=== PATIENT | female | born 1960 | race Caucasian/White ===

== ENCOUNTER 2019-07-25 13:00 | Emergency (ER) | payer OTHER, SELFPAY ==
[2019-07-25 13:03] VITALS: BP 139/66; PULSE 58; RESP 20; TEMP 36.2; O2SAT 100
--- NOTE | 2019-07-25 13:05 | ED.GENADULT ---
HPI - General Adult General Chief complaint: Urogenital-Female Stated complaint: UTI SYMPTOMS Time Seen by Provider: 07/25/19 13:21 Source: patient and RN notes reviewed Mode of arrival: ambulatory Limitations: no limitations History of Present Illness HPI narrative: 58-year-old female presents with urinary complaints for 1 day. Dysuria consist of burning, frequency, and urgency. Nancy says she had nausea this am without emesis, abdominal pain, or diarrhea.? Pyridium with no relief. Denies hematuria or vaginal bleeding. Denies being , Hysterectomy.? No flank pain. Denies vomiting, and abdominal pain.? Tolerating liquids well.? Remains active. Some parts of this dictation were generated by voice recognition software and may contain typographical and/or grammatical inaccuracies. Related Data Home Medications Medication Instructions Recorded Confirmed atenolol 25 mg PO DAILY 07/25/19 07/25/19 cyclobenzaprine 10 mg PO TID PRN 07/25/19 07/25/19 lorazepam 0.5 mg PO BID PRN 07/25/19 07/25/19 losartan 100 mg PO BID 07/25/19 07/25/19 phenazopyridine [Pyridium] 100 mg PO TID PRN 07/25/19 07/25/19 Allergies Allergy/AdvReac Type Severity Reaction Status Date / Time codeine AdvReac Unknown NAUSEA Verified 07/25/19 13:11 wasp Allergy Swelling Uncoded 07/25/19 13:11 of Lip/Tongue/Throat Review of Systems Review of Systems: Narrative: CONSTITUTIONAL: Denies fever, chills, sweats. EYES: Denies visual changes, redness, discharge. ENT: Denies rhinorrhea, congestion, sore throat, otalgia. CARDIOVASCULAR: Denies chest pain, palpitations, edema. RESPIRATORY: Denies dyspnea, wheezing, cough. GASTROINTESTINAL: Denies abdominal pain, vomiting, diarrhea. Complains of nausea. GENITOURINARY: Complains of dysuria (burning, frequency, urgency). Denies hematuria, abnormal discharge. SKIN: Denies rash or itching. MUSCULOSKELETAL: Denies acute back pain, joint pain, or myalgia. NEUROLOGIC: Denies numbness or focal weakness. PSYCHIATRIC: Denies anxiety or depression. All systems reviewed & are unremarkable except as noted in HPI and below. [facility] Past Medical History Medical History (Updated 07/25/19 @ 13:40 by ARIE Zaragoza) Anxiety Arthritis Finger fracture, right Surgery to left index finger Gout Hypertension Thyroid disease Surgical History Surgical History (Updated 07/25/19 @ 13:38 by ARIE Zaragoza) History of cholecystectomy History of eye surgery 07/18/1999-retinal tear left eye History of hysterectomy Family History Family History (Updated 07/25/19 @ 13:39 by ARIE Zaragoza) Father Cancer Mother Lung disease Social History Social History (Updated 07/25/19 @ 13:40 by ARIE Zaragoza) Smoking status: Former smoker Second hand tobacco smoke exposure: No Alcohol intake: never Alcohol use details: Occasional Substance use: never Living arrangements: with family Occupation/Education: occupation Gender identity (if verbalized by the patient): Female Comments At time of signature, agree with nurse past medical, surgical, social, and family history.? There is no relevant family history pertinent to the presenting complaint. Exam Narrative: Exam Narrative: GENERAL: This is a well-nourished, well-developed patient, in no apparent distress.? Talks in full sentences and ambulates with steady gait without dyspnea. HEAD: normocephalic, atraumatic. EYES: PERRL. Sclera clear/white. Vision is grossly intact. CARDIOVASCULAR: Regular rate and rhythm without murmurs, gallops, or rubs. RESPIRATORY: Clear to auscultation. Breath sounds equal bilaterally. No wheezes, rales, or rhonchi.? GASTROINTESTINAL: Abdomen soft, no significant abdominal tenderness, nondistended. Bowel sounds are active. No hepato-splenomegaly, or palpable masses. No guarding. SKIN: warm, intact with no suspicious lesions or rash, No Purpura or Ecchymosis, good
== END 2019-07-25 13:39 | disposition home or self-care (01) ==
PROVIDERS: Emergency Provider Nurse Practitioner Family; PCP Emergency Medicine
DX: R30.0 Dysuria (principal); F41.9 Anxiety disorder, unspecified; M19.90 Unspecified osteoarthritis, unspecified site; M10.9 Gout, unspecified; I10 Essential (primary) hypertension; Z87.891 Personal history of nicotine dependence
CPT/HCPCS: 81003; 87077; 87086; 87088; 87186; 99213; G0463

== ENCOUNTER 2020-07-28 13:01 | Outpatient (CLI) | payer OTHER, SELFPAY ==
--- NOTE | ~2020-07-28 | MM_ITS ---
EXAMINATION: MM screening [facility] BI w speedy HISTORY: Screening mammogram TECHNIQUE: Craniocaudal and mediolateral oblique 3-D tomosynthesis images were obtained and synthetic 2-D images were generated. CAD analysis was submitted and interpreted. COMPARISON: 12/11/2018, 06/26/2017, 10/30/2015 BREAST PARENCHYMAL COMPOSITION: The breasts are almost entirely fatty. FINDINGS: There is no evidence of suspicious mass, calcification, or architectural distortion to sugg est malignancy in either breast. There has been no suspicious interval change. IMPRESSION: 1. No mammographic evidence of malignancy. 2. Recommend routine screening mammography in one year. BI-RADS Category 1: Negative Reviewed, dictated and finalized at location A. MENDER
--- NOTE | ~2020-07-28 | DEXA_ITS ---
Bone Density Report Name: Nancy Daugherty Age: 59 Sex: Female Ethnicity: White Date of : 1960 Indication: postmenopausal; height loss; hysterectomy; Referring Provider: VISHNU MAZARIEGOS Study: Bone densitometry was performed. Exam Date: July 28, 2020 Accession number: [id number] Bone Density: Region BMD T-score Z-score Classification AP Spine (L1, L3, L4) 1.170 1.1 2.6 Normal Femoral Neck (Left) 0.787 -0.6 0.8 Normal Total Hip (Left) 0.925 -0.1 0.9 Normal Total Hip Bilateral Avg 0.912 -0.3 0.8 Normal Femoral Neck (Right) 0.763 -0.8 0.6 Normal Total Hip (Right) 0.898 -0.4 0.7 Normal World Health Organization criteria for BMD impression classify patients as: Normal (T-score at or above -1.0), Osteopenia (T-score between -1.0 and -2.5), or Osteoporosis (T-score at or below -2.5). 10-year Fracture Risk: FRAX not reported because: All T-scores for Spine Total, Hip Total, Femoral Neck at or above -1.0 Previous Exams: Region Exam Age BMD T-score BMD Change BMD Change Date g/cm2 vs Baseline vs Previous AP Spine(L1, L3, L4) 07/28/2020 59 1.170 1.1 0.016(1.4%)# 0.064(5.8%)* 08/19/2016 55 1.106 0.5 -0.048(-4.2%)# -0.048(-4.2%)# 07/26/2013 52 1.155 0.9 Total Hip(Left) 07/28/2020 59 0.925 -0.1 -0.083(-8.2%)# 0.011(1.2%) 08/19/2016 55 0.914 -0.2 -0.094(-9.3%)# -0.094(-9.3%)# 07/26/2013 52 1.008 0.5 Total Hip(Right) 07/28/2020 59 0.898 -0.4 -0.095(-9.6%)# -0.014(-1.6%) 08/19/2016 55 0.912 -0.2 -0.081(-8.1%)# -0.081(-8.1%)# 07/26/2013 52 0.993 0.4 *Denotes significance at 95% confidence level, LSC for AP Spine = 0.022 g/cm2, LSC for Total Hip = 0.027 g/cm2 Clinical Information Provided by Patient: Has used the following medications: Vitamin D, Calcium Has the following medical conditions: Hysterectomy Patient maximum height was 64 Menopause Age: 27 Drinks caffeinated beverages Onset of menses at age 7 Number of children 2 Impression: The patient has normal bone mass. No significant bone loss was observed. Discussion: BONE DENSITY IS ABOVE THE MINIMUM DESIRABLE LEVEL AT ALL SKELETAL SITES TESTED. This patient?s bone mineral density is above the minimum desirable level (T-score -1.0 or better) at all sites measured. The patient should follow a healthful lifestyle (good nutrition with adequate calcium and vitamin D, and appropriate weight-bearing exercise). Follow-Up: Consider repeating this neptali
== END 2020-07-28 13:02 | disposition home or self-care (01) ==
LOC: ANHIMG 13:03
PROVIDERS: Family Provider Family Medicine; PCP Emergency Medicine; Visit Provider Emergency Medicine
DX: Z12.31 Encounter for screening mammogram for malignant neoplasm of breast (principal); Z78.0 Asymptomatic menopausal state
CPT/HCPCS: 77063; 77067; 77080

== ENCOUNTER 2021-09-21 13:51 | Outpatient (CLI) | payer OTHER, SELFPAY ==
--- NOTE | ~2021-09-21 | MM_ITS ---
EXAMINATION: MM screening [facility] BI w speedy HISTORY: Screening mammogram TECHNIQUE: Craniocaudal and mediolateral oblique 3-D tomosynthesis images were obtained and synthetic 2-D images were generated. CAD analysis was submitted and interpreted. COMPARISON: 07/24/2020, 12/11/2018, 06/26/2017 bilateral screening mammogram examinations BREAST PARENCHYMAL COMPOSITION: The breasts are almost entirely fatty. FINDINGS: There is no evidence of suspicious mass, calcification, or architectural distortion to sugg est malignancy in either breast. There has been no suspicious interval change. IMPRESSION: 1. No mammographic evidence of malignancy. 2. Recommend routine screening mammography in one year. BI-RADS Category 1: Negative Reviewed, dictated and finalized at location A.
== END 2021-09-21 13:52 | disposition home or self-care (01) ==
LOC: ANHIMG 13:53
PROVIDERS: PCP Emergency Medicine; Visit Provider Emergency Medicine
DX: Z12.31 Encounter for screening mammogram for malignant neoplasm of breast (principal)
CPT/HCPCS: 77063; 77067

== ENCOUNTER 2022-03-29 12:59 | Emergency (ER) | payer OTHER, SELFPAY ==
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
[2022-03-29 13:25] VITALS: BP 133/61; PULSE 63; RESP 18; TEMP 36.3; O2SAT 100
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
== END 2022-03-29 15:05 | disposition home or self-care (01) ==
PROVIDERS: Emergency Provider Emergency Medicine; PCP Emergency Medicine
DX: M25.532 Pain in left wrist (principal); F41.9 Anxiety disorder, unspecified; M19.90 Unspecified osteoarthritis, unspecified site; I10 Essential (primary) hypertension
CPT/HCPCS: 73130; 99283

== ENCOUNTER 2022-05-03 16:28 | Emergency (ER) | payer OTHER, SELFPAY ==
[2022-05-03 16:37] VITALS: BP 140/76; PULSE 75; RESP 18; TEMP 36.8; O2SAT 99
--- NOTE | 2022-05-03 16:47 | ED.URI ---
HPI - URI/Sore Throat General Chief Complaint: Upper Respiratory Infection Stated Complaint: sorethroat Time Seen by Provider: 05/03/22 16:40 Source: patient Mode of arrival: ambulatory Limitations: no limitations History of Present Illness HPI Narrative: Nancy is a 61-year-old female patient presenting to the clinic today with complaints of sore throat, chest discomfort/ burning in chest, cough and congestion. She reports no fever or chills. States that she was sick last week with nausea, vomiting, diarrhea and sore throat however that improved and woke up this morning feeling sick again. MD elicited complaint: cough, sore throat, nasal congestion and other ( Chest discomfort) Related Data Home Medications Medication Instructions Recorded Confirmed atenolol 25 mg tablet 25 mg PO DAILY 07/25/19 07/25/19 cyclobenzaprine 10 mg tablet 10 mg PO TID PRN Pain 07/25/19 07/25/19 lorazepam 0.5 mg tablet 0.5 mg PO BID PRN Anxiety 07/25/19 07/25/19 losartan 100 mg tablet 100 mg PO BID 07/25/19 07/25/19 levothyroxine 75 mcg tablet 75 mcg PO DAILY 03/29/22 Allergies Allergy/AdvReac Type Severity Reaction Status Date / Time codeine AdvReac Unknown NAUSEA Verified 05/03/22 17:10 wasp Allergy Swelling Uncoded 05/03/22 17:10 of Lip/Tongue/Throat Review of Systems Review of Systems: Pertinent positives per HPI. Patient denies any rash, headache, visual changes, dizziness, shortness of breath, palpitations, nausea, vomiting, diarrhea, constipation, abdominal pain, or any urinary issues. [facility] Past Medical History Medical History Anxiety Arthritis Finger fracture, right Surgery to left index finger Gout Hypertension Thyroid disease Surgical History Surgical History History of cholecystectomy History of eye surgery 07/18/1999-retinal tear left eye History of hysterectomy Family History Family History Father Cancer Mother Lung disease Social History Social History (Reviewed 05/03/22 @ 16:49 by TOMMY Richardson Smoking status: Former smoker Second hand tobacco smoke exposure: No Smoking end date: 06/04/11 Alcohol intake: never Alcohol use details: Occasional Substance use: never Gender identity (if verbalized by the patient): Female Comments At the time of my signature, I reviewed and agree with the nursing past medical, surgical, social, and family history. There is no relevant family history pertinent to the patient complaint. Exam Narrative: General: Well-developed, well nourished, anxious Head: Normocephalic, atraumatic Eyes: Pupils equally round and reactive to light bilaterally, EOM intact, sclera and conjunctive clear, no discharge, lids normal Ears: TMs intact and clear, ear canals clear, no drainage, grossly hearing normal. Nose: Nares patent, clear nasal discharge, no inflammation, no sinus tenderness. Mouth: Oral pharynx without lesions or masses, good dentition, MMM. Oropharynx red Neck: Supple, trachea midline, no enlargement of anterior or posterior cervical nodes, no thyroid masses or goiter palpable. Cardio: Regular rate and rhythm, s1 and s2 normal, no murmur appreciated. Resp: Lung sounds diminished in lower bases otherwise clear to auscultation bilaterally, no rhonchi, rales, wheezing or rubs Course Course Emergency Course: Portions of this record may have been created with voice recognition software. Level of Care: Express Care Visit Vital Signs Vital signs: Vital Signs Temperature 36.8 C 05/03/22 16:37 Pulse Rate 75 05/03/22 16:37 Respiratory Rate 18 05/03/22 16:37 Blood Pressure 140/76 05/03/22 16:37 Pulse Oximetry 99 05/03/22 16:37 Oxygen Delivery Room Air 05/03/22 16:37 Temperature 36.8 C 05/03/22
--- NOTE | 2022-05-03 18:04 | ECG_ITS ---
Measurements Intervals [place] Rate: 83 P: 66 [place]: 183 QRS: 7 QRSD: 94 T: 51 QT: 334 QTc: 393 Interpretive Statements SINUS RHYTHM FREQUENT ATRIAL PREMATURE COMPLEXES TYPE 3 BRUGADA PATTERN BASELINE ARTIFACT- I, III ABNORMAL ECG COMPARED TO ECG 05/03/2022 17:30:21 NO SIGNIFICANT CHANGES Electronically Signed On 05-03-2022 21:35:59 [employer]IONAL E[employer]IC LIAISON by Willy Logan D.O.
== END 2022-05-03 17:05 | disposition short-term general hospital (02) ==
PROVIDERS: Emergency Provider Nurse Practitioner Family; PCP Emergency Medicine
DX: I21.3 ST elevation (STEMI) myocardial infarction of unspecified site (principal); Z20.822 Contact with and (suspected) exposure to COVID-19; Z87.891 Personal history of nicotine dependence; M19.90 Unspecified osteoarthritis, unspecified site; M10.9 Gout, unspecified; I10 Essential (primary) hypertension; E07.9 Disorder of thyroid, unspecified; F41.9 Anxiety disorder, unspecified
CPT/HCPCS: 87081; 87426; 87804; 87880; 93005; 99215; C9803; G0463

== ENCOUNTER 2022-05-03 17:26 | Emergency (ER) | payer OTHER, SELFPAY ==
--- NOTE | ~2022-05-03 | XR_ITS ---
EXAMINATION: XR chest 1V portable Exam Date/Time: 05/03/2022 18:10 WATER TAXI DRIVER HISTORY: Cough, retrosternal chest pain, HTN Comparison: 07/07/2013. RESULT: Lines, tubes, and devices: None. Lungs and pleura: Clear. Cardiomediastinal silhouette: Stable. Other: No acute osseous or upper abdominal finding. IMPRESSION: No acute cardiopulmonary process. Reviewed, dictated and finalized at location K. R TAXI DRIVER
[2022-05-03 17:29] VITALS: BP 154/76; PULSE 84; RESP 20; O2SAT 100
--- NOTE | 2022-05-03 17:35 | ECG_ITS ---
Measurements Intervals [place] Rate: 76 P: -11 AR: 180 QRS: 52 QRSD: 93 T: 0 QT: 332 QTc: 374 Interpretive Statements SINUS RHYTHM ATRIAL PREMATURE COMPLEXES TYPE 2 BRUGADA PATTERN BASELINE ARTIFACT- I, III, AVL, AVF ABNORMAL ECG NO PREVIOUS ECG AVAILABLE FOR COMPARISON Electronically Signed On 05-03-2022 21:33:12 COST ACCOUNTANT by Willy Logan D.O.
--- NOTE | 2022-05-03 17:36 | ECG_ITS ---
Measurements Intervals [place] Rate: 82 P: 68 FL: 185 QRS: 10 QRSD: 97 T: 53 QT: 327 QTc: 383 Interpretive Statements SINUS RHYTHM FREQUENT ATRIAL PREMATURE COMPLEXES TYPE 3 BRUGADA PATTERN BASELINE ARTIFACT- I, II, III, AVR, AVL, AVF ABNORMAL ECG COMPARED TO ECG 05/03/2022 16:54:01 NO SIGNIFICANT CHANGES Electronically Signed On 05-03-2022 21:34:31 OFFSET PRESSMAN by Willy Logan D.O.
--- NOTE | 2022-05-03 17:41 | ED.CHESTPAIN ---
HPI - Chest Pain General Chief Complaint: Chest Pain Stated Complaint: CP Time Seen by Provider: 05/03/22 17:41 Source: patient, EMS and RN notes reviewed Mode of arrival: EMS Limitations: no limitations History of Present Illness HPI narrative: Patient is 61 years old white female referred to our emergency room from urgent care with possible STEMI. . Patient still me that she have sore throat and the cough and burning sensation scratchy sensation in the throat and retrosternal started yesterday morning. Gets worse with coughing. Patient reports that last week her 4 years old grandson had nausea, vomiting and diarrhea with low-grade fever lasted for couple days and patient had similar symptoms which resolved in 24 hours. History of hypertension hypothyroidism, no family history of coronary artery disease, patient denies shortness of breath. Related Data Home Medications Medication Instructions Recorded Confirmed atenolol 25 mg tablet 25 mg PO DAILY 07/25/19 05/03/22 cyclobenzaprine 10 mg tablet 10 mg PO TID PRN Pain 07/25/19 05/03/22 lorazepam 0.5 mg tablet 0.5 mg PO BID PRN Anxiety 07/25/19 05/03/22 losartan 100 mg tablet 150 mg PO BID 07/25/19 05/03/22 levothyroxine 75 mcg tablet 0.05 mcg PO DAILY 03/29/22 05/03/22 Allergies Allergy/AdvReac Type Severity Reaction Status Date / Time codeine AdvReac Unknown NAUSEA Verified 05/03/22 17:10 wasp Allergy Swelling Uncoded 05/03/22 17:10 of Lip/Tongue/Throat Review of Systems Review of Systems: All systems reviewed & are unremarkable except as noted in HPI and below PMFSH Past Medical History Medical History Anxiety Arthritis Finger fracture, right Surgery to left index finger Gout Hypertension Thyroid disease Surgical History Surgical History History of cholecystectomy History of eye surgery 07/18/1999-retinal tear left eye History of hysterectomy Family History Family History Father Cancer Mother Lung disease Social History Social History Smoking status: Former smoker Second hand tobacco smoke exposure: No Smoking end date: 06/04/11 Alcohol intake: never Alcohol use details: Occasional Substance use: never Gender identity (if verbalized by the patient): Female Exam Narrative: General appearance: Well-developed, well-nourished Skin: Normal color Head: Normocephalic, nontraumatic Eyes: Clear conjunctiva ENT: Oropharynx normal, ears normal, nose normal Neck: Supple, nontender Chest and respiratory: Airway patent, no respiratory distress, no accessory muscle use Heart: Regular rate/rhythm Abdomen: Soft, nontender, no organomegaly, quiet bowel sounds Vascular: Normal peripheral pulses, normal capillary refill. Musculoskeletal: Normal range of motion, nontender back Neurologic: Alert and oriented ?3, PROOF INSPECTOR is normal as tested, no gross motor deficit Course Consultations Consultation #1: Patient care turned over to Dr. DOTY at shift change, awaiting labs, imaging, disposition. Patient been resting quietly in the emergency room without any issues or problems. Date: 05/03/22 Time: 19:08 Vital Signs Vital signs: Vital Signs Pulse Rate 84 05/03/22 17:29 Respiratory Rate 20 05/03/22 17:29 Blood Pressure 154/76 H 05/03/22 17:29 Pulse Oximetry 100 05/03/22 17:29 Pulse Rate 84 05/03/22 17:29 Respiratory Rate 20 05/03/22 17:29 Blood Pressure 154/76 H 05/03/22 17:29 Pulse Oximetry 100 05/03/22
[2022-05-03 18:30] LABS: Basophils Absolute Auto 0.1 K/mm3 (0.0-0.1); Basophils Percent Auto 1.1 % (0.2-1.2); Eosinophils Absolute Auto 0.1 K/mm3 (0-0.3); Eosinophils Percent Auto 1.3 % (0-4.4); Hematocrit 37.2 % (37.0-47.0); Hemoglobin 12.1 g/dL (12.0-15.0); Immature Granulocyte Absolute 0.02 K/mm3 (0.00-0.031); Immature Granulocyte Percent A 0.3 % (0-0.5); Lymphocytes Absolute Auto 0.79 K/mm3 (0.9-3.2); Lymphocytes Percent Auto 12.9 % (18.3-44.2); Mean Corpuscular HGB Conc 32.5 g/dl (32-36); Mean Corpuscular Hemoglobin 31.2 pg (26-34); Mean Corpuscular Volume 95.9 fl (80-100); Mean Platelet Volume 10.4 fl (7.4-10.4); Monocytes Absolute Auto 0.5 K/mm3 (0.1-0.6); Monocytes Percent Auto 8.8 % (2.6-8.5); Neutrophils Absolute Auto 4.6 K/mm3 (1.3-6.7); Neutrophils Percent Auto 75.6 % (45.5-73.1); Platelet Count Result 252 k/mm3 (150-375); Red Blood Count 3.88 M/mm3 (4.2-5.4); Red Cell Distribution Width 12.8 % (11.5-14.5); White Blood Count 6.1 K/mm3 (4.5-10.0)
[2022-05-03 18:38] LABS: Alanine Aminotransferase 26 U/L (6-35); Albumin Level 4.5 g/dL (3.5-5.1); Alkaline Phosphatase 106 U/L (38-126); Anion Gap 8 mmol/L (8-16); Aspartate Amino Transferase 36 U/L (14-36); Bilirubin,Total 0.5 mg/dL (0.2-1.3); Blood Urea Nitrogen 16 mg/dL (7-17); Calcium 9.2 mg/dL (8.4-10.2); Carbon Dioxide 29 mmol/L (22-30); Chloride 97 mmol/L (98-107); Estimated Glomerular Filt Rate 56; Glucose 93 mg/dL (65-110); Potassium 3.6 mmol/L (3.4-5.0); Sodium 134 mmol/L (137-145)
[2022-05-03 18:42] LABS: INR 1.1; Prothrombin Time 13.3 Seconds (11.1-14.7)
[2022-05-03 18:43] LABS: Partial Thromboplastin Time 25.4 SECONDS (22.3-36.8)
[2022-05-03 18:50] LABS: Troponin I < 0.012 ng/mL (0.000-0.034)
[2022-05-03 19:11] LABS: D Dimer 0.69 ug/mL (<0.48)
[2022-05-03 19:16] LABS: Influenza A QL RT-PCR Positive (Negative); Influenza B QL RT-PCR Negative (Negative); RSV RNA, RT-PCR Negative (Negative); SARS-CoV-2 RNA PCR Negative
[2022-05-03 20:27] VITALS: BP 119/78; PULSE 79; RESP 18; O2SAT 99
== END 2022-05-03 20:51 | disposition home or self-care (01) ==
PROVIDERS: Emergency Provider Emergency Medicine; PCP Emergency Medicine
DX: J10.1 Influenza due to other identified influenza virus with other respiratory manifestations (principal); F41.9 Anxiety disorder, unspecified; M19.90 Unspecified osteoarthritis, unspecified site; I10 Essential (primary) hypertension; Z20.822 Contact with and (suspected) exposure to COVID-19
CPT/HCPCS: 36415; 71045; 80053; 84484; 85025; 85380; 85610; 85730; 87081; 87426; 87637; 87804; 87880; 93005; 99284; C9803

== ENCOUNTER 2022-06-11 12:40 | Emergency (ER) | payer OTHER, SELFPAY ==
[2022-06-11 13:30] VITALS: BP 138/70; PULSE 78; RESP 16; TEMP 36.3; O2SAT 100
--- NOTE | 2022-06-11 14:44 | ED.GENADULT ---
HPI - General Adult General Chief complaint: Urogenital-Female Stated complaint: uti Source: patient Mode of arrival: ambulatory Limitations: no limitations History of Present Illness HPI narrative: patient presents for evaluation of urinary symptoms. Symptom onset this morning. She reports urinary frequency and dysuria. She also reports some chills. No fever, nausea, vomiting, low back pain, abdominal pain, vaginal bleeding or discharge. She has had recurrent urinary tract infections and states her current symptoms are consistent with those previously experience with urinary tract infections in the past. She took a dose of Azo this morning to assist with her symptoms. No additional complaints or concerns. Related Data Home Medications Medication Instructions Recorded Confirmed atenolol 25 mg tablet 25 mg PO DAILY 07/25/19 05/03/22 cyclobenzaprine 10 mg tablet 10 mg PO TID PRN Pain 07/25/19 05/03/22 lorazepam 0.5 mg tablet 0.5 mg PO BID PRN Anxiety 07/25/19 05/03/22 losartan 100 mg tablet 150 mg PO BID 07/25/19 05/03/22 levothyroxine 75 mcg tablet 0.05 mcg PO DAILY 03/29/22 05/03/22 Allergies Allergy/AdvReac Type Severity Reaction Status Date / Time codeine AdvReac Unknown NAUSEA Verified 05/03/22 17:10 wasp Allergy Swelling Uncoded 05/03/22 17:10 of Lip/Tongue/Throat Review of Systems Review of Systems: CONSTITUTIONAL: Denies fever, chills, or sweats. EYES: Denies visual changes, redness, or discharge. ENT: Denies rhinorrhea, congestion, sore throat, or otalgia. CARDIOVASCULAR: Denies chest pain, palpitations, or edema. RESPIRATORY: Denies cough or dyspnea. GASTROINTESTINAL: Denies abdominal pain, nausea, vomiting, or diarrhea. GENITOURINARY: Reports dysuria and urinary frequency SKIN: Denies rash or itching. MUSCULOSKELETAL: Denies back pain, joint pain, or myalgia. NEUROLOGIC: Denies headache, numbness, dizziness, or weakness. PSYCHIATRIC: Denies anxiety or depression. [facility] Past Medical History Medical History Anxiety Arthritis Finger fracture, right Surgery to left index finger Gout Hypertension Thyroid disease Surgical History Surgical History History of cholecystectomy History of eye surgery 07/18/1999-retinal tear left eye History of hysterectomy Family History Family History Father Cancer Mother Lung disease Social History Social History Smoking status: Former smoker Second hand tobacco smoke exposure: No Smoking end date: 06/04/11 Alcohol intake: never Alcohol use details: Occasional Substance use: never Gender identity (if verbalized by the patient): Female Exam Narrative: GENERAL: Well-appearing, well-nourished, and in no acute distress. HEAD: Normocephalic, atraumatic. EYES: PERRLA and EOMI. ENT: Nares clear, no rhinorrhea or epistaxis. Mucous membranes moist. Oropharynx without tonsillar hypertrophy exudate or other lesions. Bilateral TMs pearly amaro nonbulging NECK: Supple. No adenopathy or masses. No carotid bruits or JVD CHEST: Clear to auscultation. No respiratory distress. No wheezes rales or rhonchi HEART: Regular rate and rhythm. No murmur heard. Normal peripheral pulses. ABDOMEN: Soft, nontender, nondistended, normal active bowel sounds. BACK: No CVA tenderness EXTREMITIES: Normal range of motion. No edema. SKIN: Warm, dry, no rash. NEURO: No focal deficits. Alert and oriented x3. PSYCH: Normal mood and affect. Course Course Emergency Course: This is a 61 yr old female here today for urinary complaints. Nitrite positive urine. There is potential interaction for bactrim with her losartan. Therefore, will avoid and start cipro. Send urine for culture. Increase hydrat
== END 2022-06-11 14:12 | disposition home or self-care (01) ==
PROVIDERS: Emergency Provider Nurse Practitioner; PCP Emergency Medicine
DX: N39.0 Urinary tract infection, site not specified (principal); I10 Essential (primary) hypertension; E07.9 Disorder of thyroid, unspecified; M10.9 Gout, unspecified; F41.9 Anxiety disorder, unspecified; Z87.891 Personal history of nicotine dependence
CPT/HCPCS: 81003; 87086; 99213; G0463

== ENCOUNTER 2022-08-03 09:16 | Emergency (ER) | payer OTHER, SELFPAY ==
[2022-08-03 09:34] VITALS: BP 140/69; PULSE 75; RESP 16; TEMP 36.6; O2SAT 100
--- NOTE | 2022-08-03 09:41 | ED.URI ---
HPI - URI/Sore Throat General Chief Complaint: Upper Respiratory Infection Stated Complaint: BODY ACHES/FEVER/SORE THROAT Time Seen by Provider: 08/03/22 09:41 Source: patient Mode of arrival: ambulatory Limitations: no limitations History of Present Illness HPI Narrative: 61-year-old female presents with complaint of sore throat, fatigue, body aches, fever, headache, started last night. Reports symptoms worse this morning. Taking tylenol to treat pain. Denies N/V/D. Denies strep exposure but states her grandchildren work with her. All systems reviewed and negative except as noted above. Related Data Home Medications Medication Instructions Recorded Confirmed atenolol 25 mg tablet 25 mg PO DAILY 07/25/19 08/03/22 cyclobenzaprine 10 mg tablet 10 mg PO TID PRN Pain 07/25/19 08/03/22 lorazepam 0.5 mg tablet 0.5 mg PO BID PRN Anxiety 07/25/19 08/03/22 losartan 100 mg tablet 150 mg PO BID 07/25/19 06/11/22 levothyroxine 75 mcg tablet 0.05 mcg PO DAILY 03/29/22 08/03/22 ergocalciferol (vitamin D2) 1,250 1,250 mcg PO DIRECTED 06/11/22 08/03/22 mcg (50,000 unit) capsule hydrochlorothiazide 25 mg tablet 25 mg PO DAILY 06/11/22 08/03/22 Allergies Allergy/AdvReac Type Severity Reaction Status Date / Time codeine AdvReac Unknown NAUSEA Verified 08/03/22 09:28 wasp Allergy Swelling Uncoded 08/03/22 09:28 of Lip/Tongue/Throat Review of Systems Review of Systems: CONSTITUTIONAL: reports fever, chills, or sweats. EYES: Denies visual changes, redness, or discharge. ENT: Denies rhinorrhea, congestion . Reports sore throat. Denies otalgia. CARDIOVASCULAR: Denies chest pain, palpitations, or edema. RESPIRATORY: Denies cough or dyspnea. GASTROINTESTINAL: Denies abdominal pain, nausea, vomiting, or diarrhea. GENITOURINARY: Denies dysuria or hematuria. SKIN: Denies rash or itching. MUSCULOSKELETAL: Denies back pain, joint pain. Reports myalgia. NEUROLOGIC: Denies headache, numbness, or weakness. PSYCHIATRIC: Denies anxiety or depression. All other systems reviewed are negative, except as documented in HPI. [facility] Past Medical History Medical History Anxiety Arthritis Finger fracture, right Surgery to left index finger Gout Hypertension Thyroid disease Surgical History Surgical History History of cholecystectomy History of eye surgery 07/18/1999-retinal tear left eye History of hysterectomy Family History Family History Father Cancer Mother Lung disease Social History Social History Smoking status: Former smoker Second hand tobacco smoke exposure: No Smoking end date: 06/04/11 Alcohol intake: never Alcohol use details: Occasional Substance use: never Living arrangements: with family Occupation/Education: occupation Gender identity (if verbalized by the patient): Female Comments At time of signature, agree with nursing past medical, surgical, social and family history. There is no relevant family history pertinent to the presenting complaint. Exam Narrative: GENERAL: This is a well-nourished, well-developed patient, in no apparent distress. HEAD: normocephalic, atraumatic. EYES: PERRL. Sclera clear/white. Vision is grossly intact. EARS: External ears normal, auditory canals clear and without drainage, TMs normal without perforation. Hearing grossly intact. NOSE: External nose normal with no obvious nasal discharge, nares without redness, no rhinorrhea. THROAT: Mucous membranes moist, mild erythema and swelling. no exudates NECK: Neck supple, non-tender without lymphadenopathy, masses or thyromegaly. CARDIOVASCULAR: Regular rate and rhythm without murmurs, gallops, or rubs. RESPIRATORY: Clear to auscultation. Lupe
== END 2022-08-03 09:55 | disposition home or self-care (01) ==
PROVIDERS: Emergency Provider Nurse Practitioner Family; PCP Emergency Medicine
DX: J02.9 Acute pharyngitis, unspecified (principal); I10 Essential (primary) hypertension; Z20.822 Contact with and (suspected) exposure to COVID-19
CPT/HCPCS: 87081; 87426; 87880; 99213; C9803; G0463

== ENCOUNTER 2022-09-12 00:28 | Day surgery (SDC) | payer OTHER, SELFPAY ==
[2022-08-28 13:03] VITALS: BMI 32.8
[2022-09-12 12:45] VITALS: BP 124/72; PULSE 80; RESP 16; TEMP 36.3; O2SAT 97
[2022-09-12] MEDS: LACTATED RINGERS 1,000 ML 150 ML IV CONT (12:52)
--- NOTE | 2022-09-12 13:01 | PM.HPGS ---
History of Present Illness History of Present Illness Consent: Risks, benefits, and alternatives have been discussed and questions answered. Patient agrees to proceed with procedure. 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 Had EGD about 10 years ago. Review of Systems Constitutional: Constitutional: Denies headache(s) and Denies weakness Eyes: Eyes: Denies blurry vision ENT: Reports Normal hearing present, Denies headache(s) and Denies neck pain Cardiovascular: Cardiovascular: Denies chest pain and Denies dyspnea Respiratory: Respiratory: Denies dyspnea Gastrointestinal: Gastrointestinal: Reports no additional gastrointestinal complaints Genitourinary: Genitourinary: Denies dysuria Musculoskeletal: Musculoskeletal: Denies neck pain Integumentary/Breasts: Skin/Breast: Denies dry skin Neurologic: Reports Normal hearing present, Denies headache(s) and Denies weakness Psychiatric: Psychiatric: Denies anxiety Endocrine: Endocrine: Denies change in body appearance Hematologic/Lymphatic: Hematologic/Lymphatic: Denies easy bleeding Allergic/Immunologic: Allergic/Immunologic: Denies urticaria PMFSH Past Medical History Medical History (Updated 09/12/22 @ 13:03 by Enrike Acevedo MD) Anxiety Arthritis Finger fracture, right Surgery to left index finger GERD (gastroesophageal reflux disease) Gout Hypertension Thyroid disease Surgical History Surgical History History of cholecystectomy History of eye surgery 07/18/1999-retinal tear left eye History of hysterectomy Family History Family History Father Cancer Mother Lung disease Social History Social History Smoking status: Former smoker Tobacco type: cigarettes Second hand tobacco smoke exposure: No Smoking end date: 06/04/11 Alcohol intake: never Alcohol use details: Occasional Substance use: never Substance use type: does not use Living arrangements: with family Occupation/Education: occupation Gender identity (if verbalized by the patient): Female Spiritual care concerns: No Meds Home Medications and Allergies Home Medications Medication Instructions Recorded Confirmed Type atenolol 25 mg tablet 25 mg PO DAILY 07/25/19 08/28/22 History cyclobenzaprine 10 mg tablet 10 mg PO TID PRN Pain 07/25/19 08/28/22 History lorazepam 0.5 mg tablet 0.5 mg PO BID PRN Anxiety 07/25/19 08/28/22 History losartan 100 mg tablet 150 mg PO BID 07/25/19 08/28/22 History levothyroxine 75 mcg tablet 75 mcg PO DAILY 03/29/22 08/28/22 History ergocalciferol (vitamin D2) 1,250 1,250 mcg PO DIRECTED 06/11/22 08/28/22 History mcg (50,000 unit) capsule hydrochlorothiazide 25 mg tablet 25 mg PO DAILY 06/11/22 08/28/22 History omeprazole 20 mg tablet,delayed 20 mg PO DAILY 08/28/22 08/28/22 History release Allergies Allergy/AdvReac Type Severity Reaction Status Date / Time venom-wasp Allergy Swelling Verified 09/12/22 12:43 of Lip/Tongue/Throat codeine AdvReac Unknown NAUSEA Verified 09/12/22 12:43 Vital Signs Vital Signs - 24 hr 09/12/22 12:45 Temperature 97.4 F L Pulse Rate 80 Respiratory Rate 16 Blood Pressure 124/72 Pulse Oximetry 97 Oxygen Delivery Room Air Exam Const: General: comfortable and no acute distress HENMT: Face/Nose/Sinus: Normal nares present Eyes: General: appearance normal, both eyes and all related structures Neck: Neck: no JVD Resp: Auscultation: clear to auscultation bilaterally Cardio: Rate: regular rate Rhythm: reg
--- NOTE | 2022-09-12 13:06 | WPDANESEPPF ---
Anes - Initial Pre Proc Eval Procedure: Operation Date: 09/12/22 14:00 Proposed Procedures p Esophagogastroduodenoscopy EGD - Enrike Acevedo MD Date/Time: 09/12/22 13:06 Surgeon: Enrike Acevedo MD Pre Op Diagnosis: GERD Patient Data Age: 61 Gender: F Height: 1.6 m Weight: 80.8 kg Last Vital Signs Temp 36.3 C L 09/12/22 12:45 Pulse 80 09/12/22 12:45 Resp 16 09/12/22 12:45 BP 124/72 09/12/22 12:45 Pulse Ox 97 09/12/22 12:45 O2 Del Method Room Air 09/12/22 12:45 Allergies Allergy/AdvReac Type Severity Reaction Status Date / Time venom-wasp Allergy Swelling Verified 09/12/22 12:43 of Lip/Tongue/Throat codeine AdvReac Unknown NAUSEA Verified 09/12/22 12:43 Home Medications Medication Instructions Recorded Confirmed Type atenolol 25 mg tablet 25 mg PO DAILY 07/25/19 09/12/22 History cyclobenzaprine 10 mg tablet 10 mg PO TID PRN Pain 07/25/19 09/12/22 History lorazepam 0.5 mg tablet 0.5 mg PO BID PRN Anxiety 07/25/19 09/12/22 History losartan 100 mg tablet 150 mg PO BID 07/25/19 09/12/22 History levothyroxine 75 mcg tablet 75 mcg PO DAILY 03/29/22 09/12/22 History ergocalciferol (vitamin D2) 1,250 1,250 mcg PO DIRECTED 06/11/22 09/12/22 History mcg (50,000 unit) capsule hydrochlorothiazide 25 mg tablet 25 mg PO DAILY 06/11/22 09/12/22 History omeprazole 20 mg tablet,delayed 20 mg PO DAILY 08/28/22 09/12/22 History release Patient hx anesthesia problems: none Family hx anesthesia problems: none Results Review: All pre-operative results and documents have been reviewed as part of the pre-operative evaluation. [facility] Past Medical History Medical History Anxiety Arthritis Finger fracture, right Surgery to left index finger GERD (gastroesophageal reflux disease) Gout Hypertension Thyroid disease Surgical History Surgical History History of cholecystectomy History of eye surgery 07/18/1999-retinal tear left eye History of hysterectomy Family History Family History Father Cancer Mother Lung disease Social History Social History Smoking status: Former smoker Tobacco type: cigarettes Second hand tobacco smoke exposure: No Smoking end date: 06/04/11 Alcohol intake: never Alcohol use details: Occasional Substance use: never Substance use type: does not use Living arrangements: with family Occupation/Education: occupation Gender identity (if verbalized by the patient): Female Spiritual care concerns: No Comments still smoking Anes - Eval Final PreProcedure Day of Procedure 09/12/22 13:06 Heart: regular rate and rhythm Airway: Mallampati scale class II and special considerations Neurological: alert and oriented Last oral intake: >/= 8 hours ASA classification: III Emergent: no Anesthetic plan: proceed Anesthesia type and monitoring: monitored anesthesia care Results Review: All pre-operative results and documents have been reviewed as part of the pre-operative evaluation. Informed Consent: The patient's anesthetic plan and its attendant risks and benefits were discussed with the patient/family/POA. Questions were solicited and answers provided to the satisfaction of the patient/family/POA.
[2022-09-12 13:26] VITALS: BP 115/68; PULSE 83; RESP 22; O2SAT 100
[2022-09-12 13:36] VITALS: BP 115/69; PULSE 74; RESP 20; O2SAT 100
[2022-09-12 13:46] VITALS: BP 128/74; PULSE 71; RESP 17; O2SAT 100
== END 2022-09-12 13:57 | disposition home or self-care (01) ==
PROVIDERS: PCP Emergency Medicine; Visit Provider Internal Medicine Gastroenterology
PROC: 0DJ08ZZ Inspection of Upper Intestinal Tract, Via Natural or Artificial Opening Endoscopic (ICD-10-PCS; CPT 43235; principal; 2022-09-12 14:00)
DX: K21.9 Gastro-esophageal reflux disease without esophagitis (principal); K22.70 Barrett's esophagus without dysplasia; K44.9 Diaphragmatic hernia without obstruction or gangrene; I10 Essential (primary) hypertension; E07.9 Disorder of thyroid, unspecified; Z87.891 Personal history of nicotine dependence
CPT/HCPCS: 43239; 88305; J2704; J7120

== ENCOUNTER 2023-12-04 15:03 | Outpatient (CLI) | payer MEDICARE, MEDICAID, SELFPAY ==
--- NOTE | ~2023-12-04 | MM_ITS ---
EXAMINATION: MM screening nadiya BI w [facility] HISTORY: Screening mammogram TECHNIQUE: Craniocaudal and mediolateral oblique 3-D tomosynthesis images were obtained and synthetic 2-D images were generated. CAD analysis was submitted and interpreted. COMPARISON: 09/21/2021, 07/28/2020, 12/11/2018 BREAST PARENCHYMAL COMPOSITION:Not Dense. The breasts are almost entirely fatty FINDINGS: No suspicious mass, calcification, or architectural distortion are identified in either jolynn ast to suggest malignancy. There has been no suspicious interval change. IMPRESSION: No mammographic evidence of malignancy. Recommend routine screening mammography in one year. BI-RADS Category 1: Negative Reviewed, dictated and finalized at location .
== END 2023-12-04 15:04 | disposition home or self-care (01) ==
PROVIDERS: PCP Emergency Medicine; Visit Provider Emergency Medicine
DX: Z12.31 Encounter for screening mammogram for malignant neoplasm of breast (principal)
CPT/HCPCS: 77063; 77067

== ENCOUNTER 2024-08-18 12:00 | Outpatient (CLI) | payer MEDICARE, MEDICAID, SELFPAY ==
--- NOTE | ~2024-08-18 | XR_ITS ---
AP and lateral views of the left hip Clinical history: Pain Findings: No acute fracture or dislocation is seen. Osseous alignment is anatomic. Left hip joint is intact. Soft tissues are unremarkable. Impression: No significant abnormality is seen. Reviewed, dictated and finalized at location M. Impression: No significant abnormality is seen.
--- OUTSIDE RECORDS SUMMARY | 2024-08-18 14:27 | XMS_ITS | Patient Health Summary ---
Author Organization [facility] Address [address] [place] [address] Care Team Providers Care Quarrying Manager Name Role Phone Yonis Pinzon MD Primary Care Provider [phone] Suleiman Mo MD Unavailable [phone] Enrike Acevedo MD Unavailable [phone] Note from [facility],non-owned Affiliates and Associated Physician Practices is amultiple site organization consisting of ambulatory clinics and hospital sitesin [place], [place], [place] and [place]. This disclosure is being madepursuant to the Care Everywhere program and may not contain all information available regarding this patient. Last updated 18.[facility] Allergies * Wasp Venom Protein(Unknown) * Wasps [Other](Shortness of Breath,Swelling) -High Criticality Medications * Be aware that medications may not be up to date on this document. Alwaysverify current medications with the patient. * Magnesium 400 MG(Started 11/16/2016) Take 400 mg by mouth. * cyclobenzaprine (FLEXERIL) 10 MG tablet Take 1 (one) tablet by mouth * MULTIPLE VITAMINS-MINERALS PO * omeprazole (PRILOSEC OTC) capsule Take 2 (two) capsules by mouth daily before breakfast * LORazepam (ATIVAN) 0.5 MG tablet(Started 09/25/2017) Take 1 (one) tablet by mouth as needed * Calcium Carbonate-Vit D-Min (CALCIUM 1200 PO) Take 2 tablets by mouth once daily * estradiol (Estrace) 0.1 MG/GM vaginal cream(Started 03/20/2022) APPLY GRAPE SIZED AMOUNT TO INTROITUS/URETHRAL MEATUS 3 TIMES PER WEEK * losartan (Cozaar) 100 MG tablet(Started 11/28/2023) TAKE 1 TABLET BY MOUTH IN THE MORNING AND HALF A TABLET IN THE EVENING 3 refills by 11/27/2024 * levothyroxine (Synthroid) 88 MCG tablet Take 1 (one) tablet by mouth daily before breakfast * atenolol (Tenormin) 25 MG tablet(Started 05/15/2024) Take 1.5 (one and one-half) tablets by mouth once daily 3 refills by 05/15/2025 Active Problems Problem Noted Date Diagnosed Date Nonspecific abnormal electrocardiogram (ECG) (EK G) 06/09/2022 Lower leg edema 08/05/2021 Hypothyroidism, acquired 05/12/2021 Flow murmur 06/11/2020 Essential hypertension 10/12/2017 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 Flushing 05/10/2015 Thyrotoxicosis with diffuse 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 thyroid storm 11/18/2014 Nonscarring hair loss 11/18/2014 Deficiency of other specified B group vitamins 0 11/18/2014 Vitamin D deficiency 11/18/2014 Gastro-esophageal reflux disease without esophag itis 11/18/2014 Gastroesophageal reflux disease without esophagi tis 11/18/2014 Graves disease 11/18/2014 Hypovitaminosis D 11/18/2014 Immunizations * INFLUENZA VACCINE(Given 03/04/2018) Social History Tobacco Use Types Packs/Day Years Used Date Smoking Tobacco: Former Cigarettes Q uit: 11/15/2013 Smokeless Tobacco: Never Tobacco Cessation:Counseling Given: Not Answered Alcohol Use Standard Drinks/Week Comments No 0 (1 standard drink = 0.6 oz pur e alcohol) Sex and Gender Information Value Date Recorded Sex Assigned at Female 06/07/2022 12:30 PM MACHINE FITTER Gender Identity Female 06/07/2022 12:30 PM MACHINE FITTER Sexual Orientation Straight 06/07/2022 12 :30 PM MACHINE FITTER Last Filed Vital Signs Vital Sign Reading Time Taken Comments Blood Pressure 119/70 02/27/2024 11:38 AM CDT Pulse 56 02/27/2024 11:38 AM CDT Temperature 36.8 C (98.2 F) 06/09/2022 1:36 PM MACHINE FITTER Respiratory Rate 12 11/16/2016 12:42 PM CDT Oxygen Saturation 97% 02/27/2024 11:38 AM CDT Inhaled Oxygen Concentration - - Weight 76.2 kg (168 lb) 02/27/2024 11:38 AM CDT Height 160 cm (5' 3 ) 02/27/2024 11:38 AM CDT Body Mass Index 29.76 02/27/2024 11:38 AM CDT Procedures * EKG 12-LEAD(Performed 02/27/2024) Performed for Essential hypertension * PROC EKG IN CLINIC(Performed 06/09/2022) Performed for Gastroesophageal reflux disease without esophagitis, Flow murmur, Graves disease, Lower leg edema, Flushing, Essential hypertension, Thyrotoxicosis with diffuse 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 thyroid storm, Nonspecific abnormal electrocardiogram (ECG) (EKG) * TSH(Performed 06/06/2022) * T4 FREE(Performed 06/06/2022) * THYROID STIMULATING IMMUNOGLOBULIN (TSI)(Performed 06/06/2022) * THYROID STIMULATING IMMUNOGLOBULIN (TSI)(Performed 05/13/2021) Performed for Graves disease * T4 FREE(Performed 05/13/2021) Performed for Graves disease * TSH(Performed 05/13/2021) Performed for Graves disease * TSH(Performed 03/05/2020) * T4 FREE(Performed 03/05/2020) * T3 TOTAL(Performed 03/05/2020) * T3 TOTAL(Performed 01/30/2020) Performed for Graves disease * T4 FREE(Performed 01/30/2020) Performed for Graves disease * TSH(Performed 01/30/2020) Performed for Graves disease * PROC EKG IN CLINIC(Performed 11/28/2019) Performed for Essential hypertension * LAB RESULTS ORDER(Performed 07/30/2019) * MI PROPHYLAXIS RETINA DETACH PHOTOCOAG LT(Performed 07/18/2019) Performed for Retinal hole of left eye * OPH OCT TEST [facility](Performed 07/18/2019) Performed for Vitreous floaters of left eye * EYE EXAM(Performed 07/15/2019) * TSH(Performed 07/01/2019) * T4 FREE(Performed 07/01/2019) * T3 TOTAL(Performed 07/01/2019) * LAB RESULTS ORDER(Performed 03/24/2019) * T3 TOTAL(Performed 03/21/2019) Performed for Graves disease * T4 FREE(Performed 03/21/2019) Performed for Graves disease * TSH(Performed 03/21/2019) Performed for Graves disease * LAB RESULTS ORDER(Performed 10/31/2018) * TSH (EXTERNAL RESULT ENTRY)(Performed 10/18/2018) Performed for Graves disease * CREATININE BLOOD (EXTERNAL RESULT ENTRY)(Performed 10/18/2018) Performed for Thyrotoxicosis with diffuse 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 thyroid storm * BASIC METABOLIC PANEL (CALCIUM TOTAL)(Performed 11/13/2017) * BASIC METABOLIC PANEL (CALCIUM TOTAL)(Performed 11/13/2017) * VITAMIN D 25-HYDROXY(Performed 11/13/2017) * TSH(Performed 11/13/2017) * T4 FREE(Performed 11/13/2017) * VITAMIN D 25-HYDROXY(Performed 08/11/2017) * BASIC METABOLIC PANEL (CALCIUM TOTAL)(Performed 08/11/2017) * TSH(Performed 08/11/2017) * T4 FREE(Performed 08/11/2017) * EKG 12-LEAD(Performed 08/03/2017) * T4 FREE(Performed 05/05/2017) * TSH(Performed 05/05/2017) * TSH(Performed 04/07/2017) * T4 FREE(Performed 04/07/2017) * TSH(Performed 03/10/2017) * T4 FREE(Performed 03/10/2017) * TSH(Performed 02/10/2017) * T4 FREE(Performed 02/10/2017) * TSH(Performed 01/13/2017) * T4 FREE(Performed 01/13/2017) * VITAMIN D 25-HYDROXY(Performed 12/16/2016) * TSH(Performed 12/16/2016) * T4 FREE(Performed 12/16/2016) * TSH(Performed 10/24/2016) * T4 FREE(Performed 10/24/2016) * T4 FREE(Performed 09/23/2016) * TSH(Performed 09/23/2016) * T4 FREE DIRECT DIALYSIS(Performed 08/19/2016) * TSH(Performed 08/19/2016) * THYROID STIMULATING IMMUNOGLOBULIN (TSI)(Performed 07/22/2016) * T3 TOTAL(Performed 07/22/2016) * TSH(Performed 07/22/2016) * T4 FREE(Performed 07/22/2016) * T4 FREE DIRECT DIALYSIS(Performed 07/06/2016) * TSH(Performed 07/06/2016) * T4 FREE DIRECT DIALYSIS(Performed 05/06/2016) * TSH(Performed 05/06/2016) * T4 FREE(Performed 03/04/2016) * TSH(Performed 03/04/2016) * VITAMIN D 25-HYDROXY D2+D3(Performed 10/30/2015) * VITAMIN B12 FOLATE PANEL(Performed 10/30/2015) * TSH(Performed 10/30/2015) * T4 FREE(Performed 10/30/2015) * URINALYSIS W/MICROSCOPIC REFLEX TO CULTURE(Performed 10/30/2015) * CBC W/O DIFFERENTIAL(Performed 10/30/2015) * COMPREHENSIVE METABOLIC PANEL(Performed 10/30/2015) * LIPID PROFILE W LDL/HDL RATIO(Performed 10/30/2015) * CULTURE URINE(Performed 10/30/2015) * CULTURE URINE REFLEXED(Performed 10/30/2015) * T4 FREE(Performed 04/17/2015) * TSH(Performed 04/17/2015) * THYROID STIMULATING IMMUNOGLOBULIN (TSI)(Performed 04/17/2015) * DERMATOPATHOLOGY(Performed 02/04/2015) * VITAMIN B12(Performed 11/23/2014) * VITAMIN D 25-HYDROXY D2+D3(Performed 11/23/2014) * CBC W AUTO DIFFERENTIAL(Performed 11/23/2014) * T4 FREE(Performed 11/23/2014) * TSH(Performed 11/23/2014) * TSH(Performed 06/04/1998) * T3 FREE DIALYSIS LC/MS(Performed 06/04/1998) * T4 FREE DIRECT DIALYSIS(Performed 06/04/1998) Results * EKG 12-LEAD (02/27/2024 11:44 AM CDT) Only the most recent of2 resultswithin the time period is included. Ventricular Rate 58 BPM [facility] CARE MUSE Atrial Rate 58 BPM [facility] M[facility] P-R Interval 210 ms [facility] MUSE QRS Duration ms 94 ms [facility] ARE MUSE Q-T Interval ms 410 ms [facility] ARE MUSE QTC Calculation (Bezet) 402 ms [facility] MUSE Calculated P [place] 74 degrees [facility] MUSE Calculated R [place] 7 degrees [facility] MUSE Calculated T [place] 48 degrees SL [facility] MUSE Interpretation EKG SINUS BRADYCARDIA WITH 1ST DEGREE A-V BLOCK OTHERWISE NORMAL ECG NO PREVIOUS ECGS AVAILABLE Confirmed by fellow HARDIK NIETO MD ([id number]) on 03/07/2024 7:19:14 AM Confirmed by QUINN REHMAN MD ([id number]) on 03/07/2024 7:46:11 PM MADHUTOYATANIA QUICK 02/27/2024 11:4 4 AM CDT 03/07/2024 7:46 PM CDT Sherrie Roberto FLOATING LABOR GANG SUPERVISOR-INDUSTRIAL MAINTENANCE TECHNICIAN ECG ORDERABLES ANIL QUICK * PROC EKG IN CLINIC (06/09/2022 3:14 PM MACHINE FITTER) Only the most recent of2 resultswithin the time period is included. Narrative Sumanth Duong MD - 06/09/2022 3:14 PM MACHINE FITTER Sumanth Duong MD 06/09/2022 3:14 PM Sumanth Duong MD ECG ORDERABLES * THYROID STIMULATING IMMUNOGLOBULIN (TSI) (06/06/2022 2:30 PM MACHINE FITTER) Only the most recent of4 resultswithin the time period is included. Thyroid Stimulating Immunoglobulin <89 <140 % baseline [facility] Comment: Thyroid stimulating immunoglobulins (TSI) can engage the TSH receptors resulting in hyperthyroidism in Graves' disease patients. TSI levels can be useful in monitoring the clinical outcome of Graves' disease as well as assessing the potential for hyperthyroidism from maternal- transfer. TSI results greater than or equal to (>=) 140% of the Reference Control are considered positive. NOTE: A serum TSH level greater than 350 micro-International Units/mL can interfere with the TSI bioassay and potentially give false positive results. Patients who are and are suspected of having hyperthyroidism should have both TSI and human Chorionic Gonadotropin (hCG) tests measured. A serum hCG level greater than 40,625 mIU/mL can interfere with the TSI bioassay and may give false negative results. In these patients it is recommended that a second TSI be obtained when the hCG concentration falls below 40,625 mIU/mL (usually after approximately 20-weeks gestation). The analytical performance characteristics of this assay have been determined by [facility]. The modifications have not been cleared or approved by the FDA. This assay has been validated pursuant to the CLIA regulations and is used for clinical purposes. Test Performed at: [employer] [facility] [address] [place] [address] GREG GARVEY MD,PHD,FORTINO 06/06/2022 2:30 PM MACHINE FITTER 06/06/2022 2:31 PM MACHINE FITTER Suleiman Mo MD LAB - CHEMISTRY CHUCKY SKELTON Performing Organization Address City/[facility]/ZIP Co de Phone Number [facility] [id number] [place] [address] * TSH (06/06/2022 2:30 PM MACHINE FITTER) Only the most recent of25 resultswithin the time period is included. TSH 3.50 0.40 - 4.50 mIU/L [facility] Comment: Test Performed at: [place] [address] HARDIK WALKER DO,MPH 06/06/2022 2:30 PM MACHINE FITTER 06/06/2022 2:31 PM MACHINE FITTER Suleiman Mo MD LAB - CHEMISTRY [place] Performing Organization Address [facility] Co de Phone Number [facility] [phone] [place], [place] [id number] * T4 FREE (06/06/2022 2:30 PM MACHINE FITTER) Only the most recent of21 resultswithin the time period is included. T4 Free 1.3 0.8 - 1.8 ng/dL [facility] Comment: Test Performed at: [place] [address] HARDIK WALKER DO,MPH 06/06/2022 2:30 PM MACHINE FITTER 06/06/2022 2:31 PM MACHINE FITTER Suleiman Mo MD LAB - CHEMISTRY [place]Y [place] Performing Organization Address City/[facility] Co de Phone Number [facility] [phone] [place] [address] * T3 TOTAL (03/05/2020 12:34 PM CDT) Only the most recent of5 resultswithin the time period is included. T3 Total 100 76 - 181 ng/dL [facility] Comment: Test Performed at: [facility] [facility] [address] [place] [address] HARDIK WALKER DO,MPH 03/05/2020 12:3 4 PM CDT 03/05/2020 12:35 PM CDT Carlos Yee MD LAB - CHEMISTR Y ORDERABLES [facility] [address] [place] [address] * LAB RESULTS ORDER (07/30/2019 12:41 PM MACHINE FITTER) Only the most recent of3 resultswithin the time period is included. Narrative 07/30/2019 12:41 PM MACHINE FITTER Ordered by an unspecified provider. Scanned Document LAB - THERAPEUTIC DR SERRATO MONITORING ORDERABLES * MI PROPHYLAXIS RETINA DETACH PHOTOCOAG LT (07/18/2019 4:20 PM MACHINE FITTER) Narrative Moses Leach MD - 07/18/2019 4:20 PM MACHINE FITTER Moses Leach MD 07/19/2019 1:39 PM Retinal Laser Note Procedure: retinal detachment prophylaxis laser in left eyes Diagnosis: retinal hole of left eye Anesthesia: Proparacaine Type of laser: Slit Lamp OS Number of spots: 142 Spot size: 280um Power: 470mw Duration: 0.15s The patient tolerated the procedure well with no complications and was instructed to follow-up as directed, sooner for any concerning visual signs or symptoms. Yeni Abbasi MD Ophthalmology Resident PGY2 4:21 PM Moses Leach MD Yeni Abbasi MD PROCEDURE/MINOR SURG ICAL ORDERABLES * OCT (07/18/2019 9:14 AM MACHINE FITTER) Anatomical Region Laterality Modality Other 07/18/2019 9:14 AM MACHINE FITTER Yeni Abbasi MD OPHTHALMOLOGY SERVIC ES ORDERABLES * EYE EXAM (07/15/2019 2:41 PM MACHINE FITTER) Anatomical Region Laterality Modality Other Narrative 07/15/2019 2:41 PM MACHINE FITTER Ordered by an unspecified provider. Scanned Document SCANNING ONLY * TSH (EXTERNAL RESULT ENTRY) (10/18/2018) TSH (EXTERNAL RESULT) 6.29 uIU/mL OUTSIDE REFERENCE LAB T4 Free 1.0 0.7 - 1.5 ng/dL [facility]IDE REFERENCE LAB Vitamin D, 25 Hydroxy 23 ng/mL [facility] LAB Cholesterol 192 200 mg/dL [facility] HDL 78 40 mg/dL [facility] LDL 97 OUTSIDE REFERENCE LAB Triglycerides 77 149 mg/dL OUTSID E REFERENCE LAB Blood BLOOD SPECIMEN / Unknown 10/18/2018 Suleiman Mo MD LAB - CHEMISTRY [place] OUTSIDE REFERENCE LAB * CREATININE BLOOD (EXTERNAL RESULT ENTRY) (10/18/2018) Creatinine (EXTERNAL RESULT) 0.82 mg/dl OUTSIDE REFERENCE LAB Cholesterol (EXTERNAL RESULT) 192 mg/dl OUTSIDE REFERENCE LAB HDL 78 40 mg/dL [facility] LAB Triglycerides 77 149 mg/dL OUTSID E REFERENCE LAB LDL 97 OUTSIDE REFERENCE LAB TSH 6.29 OUTSIDE REFERENCE LAB T4 Free 1.00 0.70 - 1.50 ng/dl OUTSIDE REFERENCE LAB Vitamin B12 454 OUTSIDE REFERENCE LAB Vitamin D, 25 Hydroxy 23 ng/mL OUTSIDE REFERENCE LAB Blood BLOOD SPECIMEN / Unknown 10/18/2018 Suleiman Mo MD LAB - CHEMISTRY [place] OUTSIDE REFERENCE LAB * (ABNORMAL) BASIC METABOLIC PANEL (CALCIUM TOTAL) (11/13/2017 8:10 AM CDT) Only the most recent of3 resultswithin the time period is included. Glucose 100(H) 65 - 99 mg/dL [facility] Comment: Fasting reference interval For someone without known diabetes, a glucose value between 100 and 125 mg/dL is consistent with prediabetes and should be confirmed with a follow-up test. BUN 10 7 - 25 mg/dL [facility] Creatinine 0.74 0.50 - 1.05 mg/dL [facility] Comment: For patients >49 years of age, the reference limit for Creatinine is approximately 13% higher for people identified as -Afghan. eGFR by MDRD 89 > OR = 60 mL/min/1 .73m2 [facility] eGFR by MDRD 103 > OR = 60 mL/min/1 .73m2 [facility] BUN/Creatinine Ratio NOT APPLICABLE 6 - 22 (calc) [facility] Sodium 141 135 - 146 mmol/L [facility] Potassium 4.6 3.5 - 5.3 mmol/L [facility] Chloride 105 98 - 110 mmol/L [facility] CO2 29 20 - 31 mmol/L [facility] Calcium 9.6 8.6 - 10.4 mg/dL [facility] Comment: Test Performed at: [facility] [id number] [address] HARDIK WALKER DO,MPH 11/13/2017 8:10 AM CDT 11/13/2017 8:11 AM CDT Sumanth Duong MD LAB - CHEMISTRY [place] SK[place] [facility] Organization Address City/State/ZIP Co de Phone Number [facility] [address] [place] [address] * VITAMIN D 25-HYDROXY (11/13/2017 8:08 AM CDT) Only the most recent of3 resultswithin the time period is included. Vitamin D, 25 Hydroxy 40 30 - 100 ng/mL [facility] Comment: Vitamin D Status 25-OH Vitamin D: Deficiency: <20 ng/mL Insufficiency: 20 - 29 ng/mL Optimal: > or = 30 ng/mL For 25-OH Vitamin D testing on patients on D2-supplementation and patients for whom quantitation of D2 and D3 fractions is required, the QuestAssureD(TM) 25-OH VIT D, (D2,D3), LC/MS/MS is recommended: order code 18753 (patients >2yrs). For more information on this test, go to: http://education.[employer].ADCentricity/faq/CUS211 (This link is being provided for informational/educational purposes only.) REPORT COMMENT: FASTING:NO Test Performed at: [facility] [address] [place] [address] HARDIK WALKER DO,MPH 11/13/2017 8:08 AM CDT 11/13/2017 8:09 AM CDT Suleiman Mo MD LAB - CHEMISTRY PRIMODesiree SKELTON Performing Organization Address City/[facility]/ZIP Co de Phone Number [facility] [address] [place] [address] * T4 FREE DIRECT DIALYSIS (08/19/2016 7:26 AM CDT) Only the most recent of4 resultswithin the time period is included. T4 Free Direct Dialysis 1.4 0.8 - 2.7 ng/dL [facility] ([facility]) Comment: Reference Ranges for T4, Free, Direct Dialysis: First Trimester: 0.9-2.0 ng/dL Second Trimester: 0.8-1.5 ng/dL Third Trimester: 0.8-1.7 ng/dL This test was developed and its analytical performance characteristics have been determined by [facility]. It has not been cleared or approved by FDA. This assay has been validated pursuant to the CLIA regulations and is used for clinical purposes. Test Performed at: [employer]/[facility] [address] [place] [address] KENZIE BAUTISTA MD PHD Blood specimen (specimen) BLOOD SPECIMEN / Unknown 08/19/2016 7:26 AM CDT 08/19/2016 7:27 AM CDT Suleiman Mo MD LAB - CHEMISTRY CHUCKY [place] Performing Organization Address [facility] de Phone Number [facility] ([facility]) * (ABNORMAL) VITAMIN D 25-HYDROXY D2+D3 BY TANDEM MASS (10/30/2015 9:06 AM CDT) Only the most recent of2 resultswithin the time period is included. Vitamin D, 25 Hydroxy Total 22(L) 30 - 100 ng/mL [facility] ([facility]) Comment: Vitamin D Status 25-OH Vitamin D: Deficiency: <20 ng/mL Insufficiency: 20 - 29 ng/mL Optimal: > or = 30 ng/mL For 25-OH Vitamin D testing on patients on D2-supplementation and patients for whom quantitation of D2 and D3 fractions is required, the QuestAssureD(TM) 25-OH VIT D, (D2,D3), LC/MS/MS is recommended: order code 74654 (patients >2yrs). For more information on this test, go to: http://education.Mediaspectrum/faq/TTW691 (This link is being provided for informational/educational purposes only.) Test Performed at: [employer] [facility] [address] HARDIK WALKER DO,MPH 10/30/2015 9:06 AM CDT 10/30/2015 9:07 AM CDT Yonis Pinzon MD LAB - CHEMISTRY ORDE RABLES Performing Organization Address [facility]/ZIP Co de Phone Number [facility] ([facility]) * CULTURE URINE REFLEXED (10/30/2015 9:06 AM CDT) Pathologist [facility] Culture Urine Comprehensive CULTURE INDICATED - RESULTS TO FOLLOW [facility] ([facility]) Comment: Test Performed at: [employer] [facility] [place] [address] HARDIK WALKER DO,MPH 10/30/2015 9:06 AM CDT 10/30/2015 9:07 AM CDT Yonis Pinzon MD LAB - MICROBIOLOGY O RDERABLES Performing Organization Address [facility]/ZIP Co de Phone Number [facility] ([facility]) * LIPID PROFILE W LDL/HDL RATIO (10/30/2015 9:06 AM CDT) Cholesterol Total 168 125 - 200 mg/dL [facility] ([facility]) Comment: Test Performed at: [employer] [facility] [place] [place] [address] HARDIK WALKER DO,MPH HDL 65 > OR = 46 mg/dL [facility] ([facility]) Triglycerides 72 <150 mg/dL [facility] ([facility]) LDL Calculated 89 <130 mg/dL (calc) [facility] ([facility]) Comment: Desirable range <100 mg/dL for patients with CHD or diabetes and <70 mg/dL for diabetic patients with known heart disease. Chol/HDL Ratio 2.6 < OR = 5.0 (calc) [facility] ([facility]) LDl/HDL Ratio 1.4 (calc) [facility] ([facility]) Comment: Below average Risk: <2.34 Average Risk: 2.35-4.12 Moderate Risk: 4.13-5.56 High Risk: >5.57 Non HDL Cholesterol 103 mg/dL (calc) [facility] ([facility]) Comment: Target for non-HDL cholesterol is 30 mg/dL higher than LDL cholesterol target. 10/30/2015 9:06 AM CDT 10/30/2015 9:07 AM CDT Yonis Pinzon MD LAB - CHEMISTRY ORDE RABLES [facility] ([facility]) * (ABNORMAL) URINALYSIS W/MICROSCOPIC REFLEX TO CULTURE (10/30/2015 9:06 AM CDT) Color UA YELLOW YELLOW [facility] ([facility]) Appearance CLEAR CLEAR [facility] ([facility]) Specific [place] UA 1.011 1.001 - 1.035 [facility] ([facility]) pH Urine 7.0 5.0 - 8.0 [facility] ([facility]) Glucose UA NEGATIVE NEGATIVE [facility] ([facility]) Bilirubin UA NEGATIVE NEGATIVE [facility] ([facility]) Ketone UA NEGATIVE NEGATIVE [facility] ([facility]) Occult Blood NEGATIVE NEGATIVE [facility] ([facility]) Protein UA NEGATIVE NEGATIVE [facility] ([facility]) Nitrite UA NEGATIVE NEGATIVE [facility] ([facility]) Leukocyte Esterase TRACE(A) NEGATIVE [facility] ([facility]) WBC Urine NONE SEEN < OR = 5 /HPF [facility] ([facility]) RBC Urine NONE SEEN < OR = 2 /HPF [facility] ([facility]) Squamous Epithelial Cells UA 0-5 < OR = 5 /HPF [facility] ([facility]) Bacteria UA NONE SEEN NONE SEEN /HPF [facility] (H) Hyaline Casts UA NONE SEEN NONE SEEN /LPF [facility] ([facility]) Comment: Test Performed at: [facility] [address] [place] [address] HARDIK WALKER DO,MPH 10/30/2015 9:06 AM CDT 10/30/2015 9:07 AM CDT Yonis Pinzon MD LAB - URINALYSIS ORD ERABLES Performing Organization Address [facility]/State/ZIP Co de Phone Number [facility] ([facility]) * CULTURE URINE (10/30/2015 9:06 AM CDT) Pathologist [facility] Urine Culture Routine SEE NOTE [facility] ([facility]) Comment: CULTURE, URINE, ROUTINE MICRO NUMBER: [id number] TEST STATUS: FINAL SPECIMEN SOURCE: URINE SPECIMEN QUALITY: ADEQUATE RESULT: Mixed non-uropathogenic Gram positive arturo. Three or more organisms present, each greater than 10,000 cu/mL. May represent normal arturo contamination from external genitalia. No further testing is required. REPORT COMMENT: FASTING:YES Test Performed at: [facility] [address] [facility] [place] [address] HARDIK WALKER DO,MPH 10/30/2015 9:06 AM CDT 10/30/2015 9:07 AM CDT Yonis Pinzon MD LAB - MICROBIOLOGY O RDILEANA [facility] ([facility]) * CBC W/O DIFFERENTIAL (10/30/2015 9:06 AM CDT) Pathologist [facility] WBC 4.7 3.8 - 10.8 Thousand/u L [facility] ([facility]) RBC 4.52 3.80 - 5.10 Million/uL [facility] ([facility]) Hemoglobin 13.7 11.7 - 15.5 g/dL [facility] ([facility]) Hematocrit 42.1 35.0 - 45.0 % [facility] ([facility]) MCV 93.1 80.0 - 100.0 fL [facility] ([facility]) MCH 30.4 27.0 - 33.0 pg [facility] ([facility]) MCHC 32.6 32.0 - 36.0 g/dL [facility] ([facility]) RDW-CV 14.2 11.0 - 15.0 % [facility] ([facility]) Platelet 243 140 - 400 Thousand/u L [facility] ([facility]) MPV 10.1 7.5 - 11.5 fL [facility] ([facility]) Comment: Test Performed at: [facility] [address] [facility] [place] [place] [address] HARDIK WALKER DO,MPH 10/30/2015 9:06 AM CDT 10/30/2015 9:07 AM CDT Yonis Pinzon MD LAB - HEMATOLOGY ORD VALERIABLES Performing Organization Address [facility] Co de Phone Number [facility] ([facility]) * COMPREHENSIVE METABOLIC PANEL (10/30/2015 9:06 AM CDT) Pathologist [facility] Glucose 93 65 - 99 mg/dL [facility] Comment: Fasting reference interval BUN 9 7 - 25 mg/dL [facility] Creatinine 0.75 0.50 - 1.05 mg/dL [facility] Comment: For patients >49 years of age, the reference limit for Creatinine is approximately 13% higher for people identified as -Afghan. eGFR non- 88 > OR = 60 mL/min/1 .73m2 [facility] eGFR 103 > OR = 60 mL/min/1 .73m2 [facility] BUN/Creatinine Ratio NOT APPLICABLE 6 - 22 (calc) [facility] Sodium 142 135 - 146 mmol/L [facility] Potassium 4.2 3.5 - 5.3 mmol/L [facility] Chloride 107 98 - 110 mmol/L [facility] CO2 27 19 - 30 mmol/L [facility] Calcium 9.8 8.6 - 10.4 mg/dL [facility] Protein Total 6.7 6.1 - 8.1 g/dL [facility] Albumin 4.2 3.6 - 5.1 g/dL [facility] Globulin 2.5 1.9 - 3.7 g/dL (calc) [facility] Albumin/Globulin Ratio 1.7 1.0 - 2.5 (calc) [facility] Bilirubin Total 0.9 0.2 - 1.2 mg/dL [facility] Alkaline Phosphatase 74 33 - 130 U/L [facility] AST 21 10 - 35 U/L [facility] ALT 19 6 - 29 U/L [facility] Comment: Test Performed at: [facility] [address] [address] HARDIK WALKER DO,MPH 10/30/2015 9:06 AM CDT 10/30/2015 9:07 AM CDT Yonis Pinzon MD LAB - CHEMISTRY [place] Performing Organization Address [facility] Co de Phone Number [facility] * VITAMIN B12 FOLATE PANEL (10/30/2015 9:06 AM CDT) Vitamin B12 539 200 - 1,100 pg/mL [facility] Folate >24.0 ng/mL [facility] Comment: Reference Range Low: <3.4 Borderline: 3.4-5.4 Normal: >5.4 Test Performed at: [facility] [id number] [place] [address] HARDIK WALKER DO,MPH 10/30/2015 9:06 AM CDT 10/30/2015 9:07 AM CDT Yonis Pinzon MD LAB - CHEMISTRY [place] Performing Organization Address [facility] Co de Phone Number [facility] * PATHOLOGY TISSUE FOR DERMATOLOGY (02/04/2015 12:00 AM CDT) Result CASE: [id number] PATIENT: NANCY PROCTOR PATHOLOGIC DIAGNOSIS: Left frontal scalp: 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 GROSS DESCRIPTION: Received is one formalin filled container labeled with the patients name and designated left frontal scalp. The specimen consists of a punch biopsy measuring [id number]. Jar 0. MICROSCOPIC DESCRIPTION: There is a shift from anagen to non anagen hairs. There is an overall decrease in follicular size as well as an increased number of vellus hairs. There is relative hypertrophy of sebaceous glands. In addition, there is a dense lichenoid lymphohistiocyt ic infiltrate surrounding the infundibulum and the isthmus of the follicles. There are scattered dyskeratotic cells. Electronically signed out by Kelley Philip M.D. 02/11/2015 1:24:21PM [facility] Comment: Performed at: Dermatopathology Laboratory [facility] - Department of Dermatology [address] [place] [address], 5th [place] [address] Phone number: [phone] FAX: [phone] Skin (tissue) specimen (specimen) 02/04/2015 02/05/2015 Narrative [facility] - 02/11/2015 1:24 PM CDT Specimen A: Type->Punch Site->L frontal scalp History->54 y/o female with diffuse central hair thinning and mild perifollicular erythema in frontal hairline Impression->Androgenetic alopecia vs. LPP vs. other Check Margins:->No Prior Biopsy->No Toby Bailon MD LAB - PATHOLOGY/CYTO LOGY ORDERABLES Performing Organization Address City/[facility]/ZIP Co de Phone Number [facility] [address] [place] [address]. 5th Floor Lab [address] [phone] * VITAMIN B12 (11/23/2014 3:19 PM CDT) Pathologist [facility] Vitamin B12 478 200 - 1,100 pg/mL [facility] Comment: REPORT COMMENT: FASTING:NO Test Performed at: [facility] [address] [place] [address] HARDIK WALKER DO,MPH Blood specimen (specimen) BLOOD SPECIMEN / Unknown 11/23/2014 3:19 PM CDT 11/23/2014 3:20 PM CDT Suleiman Mo MD LAB - CHEMISTRY [place] Performing Organization Address [facility]/ZIP Co de Phone Number [facility] * CBC W AUTO DIFFERENTIAL (11/23/2014 3:16 PM CDT) Pathologist [facility] WBC 6.5 3.8 - 10.8 Thousand/u L [facility] RBC 4.24 3.80 - 5.10 Million/uL [facility] Hemoglobin 13.3 11.7 - 15.5 g/dL [facility] Hematocrit 40.5 35.0 - 45.0 % [facility] MCV 95.4 80.0 - 100.0 fL [facility] MCH 31.3 27.0 - 33.0 pg [facility] MCHC 32.8 32.0 - 36.0 g/dL [facility] RDW-CV 13.4 11.0 - 15.0 % [facility] Platelet 235 140 - 400 Thousand/u L [facility] MPV 10.5 7.5 - 11.5 fL [facility] Neutrophils Absolute 2,061 1,500 - 7,800 cells/uL [facility] Lymphocyte Absolute Manual 3,835 850 - 3,900 cells/uL [facility] Monocytes Absolute 442 200 - 950 cells/uL [facility] Eosinophils Absolute 130 15 - 500 cells/uL [facility] Basophil Absolute Manual 33 0 - 200 cells/uL [facility] Neutrophils % 31.7 % [facility] Lymphocytes % 59.0 % [facility] Monocytes % 6.8 % [facility] Eosinophils % 2.0 % [facility] Basophil % 0.5 % [facility] Comment: Test Performed at: [facility] [facility] [address] [place] [address] HARDIK WALKER DO,MPH Blood specimen (specimen) BLOOD SPECIMEN / Unknown 11/23/2014 3:16 PM CDT 11/23/2014 3:17 PM CDT Suleiman Mo MD LAB - HEMATOLOGY ORD ERABLES Performing Organization Address City/[facility]/ZIP Co de Phone Number [facility] ([facility]) * T3 FREE DIALYSIS LC/MS (06/04/1998 12:00 AM MACHINE FITTER) T3 Free 1.49 [facility] 06/04/1998 Narrative [facility] - 06/04/1998 12:00 AM MACHINE FITTER This external order was created through the Results Console. Historical Provider LAB - CHEMISTRY O RDERABLES [facility] Care Teams Quarrying Manager Relationship Specialty Start Date End Date Yonis Pinzon MD [address] [facility] [address] [place] [address] PCP - General 09/17/14 Suleiman Mo MD [address] [place] [address] Endocrinology 02/27/24 Enrike Acevedo MD [address] [facility] [address] [place] [address] Hospitalist 02/27/24
--- OUTSIDE RECORDS SUMMARY | 2024-08-18 14:27 | XMS_ITS | Data Portability ---
Author Organization [facility] [place] Address [address] [place] [address] Care Team Providers Care Advertisement Compositor Name Role Phone VISHNU MAZARIEGOS Primary Care Provider Assessment Encounter Date Assessment Date Assessment LastModified by Organization Details LastModified Time 05/21/2020 05/21/2020 We discussed the diagnoses below, including types of POP, treatment options. I believe vaginal estrogen may not only help prevent her UTIs, but also may help her pressure sensation. estrace vaginal nightly for one month, then 3x/week. discussed usage, RBA> FU 4-5 weeks, will consider pessary if sx not improved. [email or web address] Not available 05/21/2020 15:18:02 01/11/2022 01/11/2022 will restart estradiol cream nightly for a month, then 3x per week FU WWE 2 mos [email or web address] Not available 01/11/2022 16:38:40 03/20/2022 03/20/2022 healthy female exam/menopause patient declines std testing pap not indicated=- hyst mammogram UTD colonoscopy due around 2024 dexa due 2024 estrace cream refilled Encouraged weight bearing exercise and 1500mg daily of Calcium with Vitamin D FU 1 year or prn [email or web address] Not available 03/21/2022 08:35:45 03/30/2023 03/30/2023 Annual gynecological exam performed. Patient will come back in a year unless there are new symptoms. Not available 03/30/2023 14:19:46 Plan of Treatment Reminders Order Date Submit Date Provider Last Modified By Organization Details Last Modified Time Details Appointments None recorded. Lab urinalysis, dipstick 2022 023 [email or web address] [address], [address], [place], [address], 3 14:50:59 Referral urogynecolo gist referral 2022 023 bianca Heredia MD, [address], [address], [place], [address], 3 18:09:50 Procedures None recorded. Surgeries None recorded. Imaging MAMMO, screening, bilateral 2022 023 EVAN Not available 4 05:01:34 Medication Orders estradiol 0.01% (0.1 mg/gram) vaginal cream 2022 023 [id number], [address], [place], [id number], 3 14:51:06 estradiol 0.01% (0.1 mg/gram) vaginal cream 2021 022 [facility] #[id number], [address], [place], [id number], 2 14:50:23 estradiol 0.01% (0.1 mg/gram) vaginal cream 2021 [facility]22 [id number], [address], [place], [id number], 2 16:39:11 Estrace 0.01% (0.1 mg/gram) vaginal cream [address] [facility] #32586, [address], [place], [id number], 2 14:46:42 Patient TargetsNo targets recorded. Patient InstructionsNo instructions recorded. Reason for Referral Urogynecologist Referral for Prolapse of female genital organs Referring Physician: Kinjal Verdugo CONTACT LENS ASSISTANT, Encounter Date: 03/30/2023 Results Created Date Observation Date Name Description Value Unit Range Abnormal Flag Note LastModifiedBy Organization Detail LastModifiedTime 03/30/2003/30/2023 URINA LYSIS , WITH MICRO SCOPI C, REFLE X CULTU RE color, urine Light Yellow Not Available [facility] (Lab) [address], [place], [address], 03/31/2023 03:30:32 03/30/2003/30/2023 URINA LYSIS , WITH MICRO SCOPI C, REFLE X CULTU RE clarity, urine Clear Not Available [facility] (Lab) [address], [place], [address], 03/31/2023 03:30:32 03/30/20 23 03/30/2023 URINA LYSIS , WITH MICRO SCOPI C, REFLE X CULTU RE specific gravity, urine 1.006 . 1.005- 1.035 Not Available [facility] (Lab) [address], [place], [address], 03/31/2023 03:30:32 03/30/2003/30/2023 URINA LYSIS , WITH MICRO SCOPI C, REFLE X CULTU RE pH, urine 7.0 . 5.0-7. 0 Not Available [facility] (Lab) [address], [place], [address], 03/31/2023 03:30:32 03/30/2003/30/2023 URINA LYSIS , WITH MICRO SCOPI C, REFLE X CULTU RE protein, UA Negati ve mg/dL negati ve, 10- Not Available [facility] (Lab) [address], [place], [address], 03/31/2023 03:30:32 03/30/20 23 03/30/2023 URINA LYSIS , WITH MICRO SCOPI C, REFLE X CULTU RE glucose, urine Normal mg/dL negati ve Not Available [facility] (Lab) [address] [facility], [place], [address], 03/31/2023 03:30:32 03/30/2003/30/2023 URINA LYSIS , WITH MICRO SCOPI C, REFLE X CULTU RE ketones, urine Negati ve mg/dL negati ve Not Available [facility] (Lab) [address] [facility], [place], [address], 03/31/2023 03:30:32 03/30/2003/30/2023 URINA LYSIS , WITH MICRO SCOPI C, REFLE X CULTU RE bilirubin, urine Negati ve negati ve Not Available [facility] (Lab) [address] [facility], [place], [address], 03/31/2023 03:30:32 03/30/2003/30/2023 URINA LYSIS , WITH MICRO SCOPI C, REFLE X CULTU RE blood, urine Negati ve negati ve Not Available [facility] (Lab) [address] [facility], [place], [address], 03/31/2023 03:30:32 03/30/2003/30/2023 URINA LYSIS , WITH MICRO SCOPI C, REFLE X CULTU RE nitrite, urine Negati ve negati ve Not Available [facility] (Lab) [address] [facility], [place], [address], 03/31/2023 03:30:32 03/30/2003/30/2023 URINA LYSIS , WITH MICRO SCOPI C, REFLE X CULTU RE leukocyte esterase, urine Negati ve shay/u L negati ve Not Available [facility] (Lab) [address] [facility], [place], [address], 03/31/2023 03:30:32 03/30/2003/30/2023 URINA LYSIS , WITH MICRO SCOPI C, REFLE X CULTU RE urobilinogen , urine Normal mg/dL normal , <2.0 Not Available [facility] (Lab) [address], [place], [address], 03/31/2023 03:30:32 03/30/2003/30/2023 URINA LYSIS , WITH MICRO SCOPI C, REFLE X CULTU RE RBC, urine 0-2 /hpf none, 0-2 Not Available [facility] (Lab) [address] [facility], [place], [address], 03/31/2023 03:30:32 03/30/2003/30/2023 URINA LYSIS , WITH MICRO SCOPI C, REFLE X CULTU RE WBC, urine 0-5 /hpf none, 0-5 Not Available [facility] (Lab) [address] [facility], [place], [address], 03/31/2023 03:30:32 03/30/2003/30/2023 URINA LYSIS , WITH MICRO SCOPI C, REFLE X CULTU RE squamous epithelial cells, urine Few /hpf none abnormal Not Available [facility] (Lab) [address] [facility], [place], [address], 03/31/2023 03:30:32 03/30/2003/30/2023 URINA LYSIS , WITH MICRO SCOPI C, REFLE X CULTU RE bacteria, urine None /hpf none Not Available [facility] (Lab) [address] [facility], [place], [address], 03/31/2023 03:30:32 03/30/2003/30/2023 URINA LYSIS , WITH MICRO SCOPI C, REFLE X CULTU RE hyaline cast, urine None /lpf none, 0-2 Urine Cultu re not perfo rmed per refle x [place] col. Not Available [facility] (Lab) [address] [facility], [place], [address], 03/31/2023 03:30:32 03/30/2003/30/2023 urina lysis , dipst ick pH 8 Not Available [facility] [address], [place], [address], 03/30/2023 14:48:24 03/30/20 23 03/30/2023 urina lysis , dipst ick Specific [place] 1.000 Not Available [facility] [address], [place], [address], 03/30/2023 14:48:24 Result Notes None recorded. Problems Name Problem SNOMED Code Status Onset Date Resolution Date Notes Provider Name and Address Organization Details Recorded Time Atrophic vaginitis 99287683 Active 022 Christiane De Paz MD [address], [place], [address], [facility] 16:35:36 Problem Notes None recorded. Procedures Surgical History Date Name Laterality Status Provider Name and Address Organization Details Recorded Time 022 Date of Last Mammogram completed Margie Guerra [facility] 03/30/2023 14:23:59 020 Most Recent Bone Density completed [facility] 03/20/2022 14:21:12 015 Date of Last Colonoscopy completed [facility] 03/20/2022 14:21:03 014 surgical avulsion completed [facility] 05/21/2020 14:02:57 990 cholecystectomy completed [facility] 05/21/2020 14:01:18 989 total abdominal hysterectomy completed Christiane De Paz MD [address], [place], [address], [facility] 05/21/2020 14:43:57 987 section completed [facility] 05/21/2020 14:01:58 Imaging Results None recorded. Procedure Notes None recorded. Medical Equipment None Reported. Allergies No known drug allergies Medications Name Sig Start Date Stop Date Status Note LastModified by Organization Details LastModified Time cyclobenzap rine 10 mg tablet TAKE 1 TABLET BY MOUTH THREE TIMES DAILY NEEDED active Not Available Not Available No t Available azithromyci n 250 mg tablet TAKE 2 TABLETS BY MOUTH FOR 1 DAY THEN TAKE 1 TABLET BY MOUTH DAILY FOR 4 DAYS DIRECTED 03/30 completed Not Available Not Available Not Available fluconazole 150 mg tablet TK 1 T PO 1 TIME 05/21 completed Not Available Not Available Not Available ondansetron HCl 4 mg tablet TK 1 T PO Q 6 H PRF NAUSEA OR VOM 05/21 completed Not Available Not Available Not Available prednisone 20 mg tablet TK 3 TS PO QD 05/21 completed Not Available Not Available Not Available atenolol 25 mg tablet TAKE 1 TABLET BY MOUTH EVERY DAY active Not Available Not Available No t Available ciprofloxac in 250 mg tablet TK 1 T PO Q 12 H FOR 3 DAYS 05/21 completed Not Available Not Available Not Available ciprofloxac in 500 mg tablet TAKE 1 TABLET BY MOUTH EVERY 12 HOURS FOR 7 DAYS active Not Available Not Available No t Available omeprazole 40 mg capsule,del ayed release TAKE 1 CAPSULE BY MOUTH DAILY active Not Available Not Available No t Available levothyroxi ne 75 mcg tablet TAKE 1 TABLET BY MOUTH EVERY DAY 03/30 completed Not Available Not Available Not Available levothyroxi ne 88 mcg tablet 2022 active Not Available Not Available Not Avai lable amoxicillin 875 mg tablet TAKE 1 TABLET BY MOUTH EVERY 12 HOURS FOR 10 DAYS 03/30 completed Not Available Not Available Not Available lorazepam 0.5 mg tablet TAKE 1 TABLET BY MOUTH TWICE DAILY NEEDED active Not Available Not Available No t Available benzonatate 100 mg capsule TAKE 1 CAPSULE BY MOUTH EVERY 8 HOURS NEEDED 03/30 completed Not Available Not Available Not Available levothyroxi ne 50 mcg tablet TAKE 1 TABLET BY MOUTH EVERY DAY 01/11 completed Not Available Not Available Not Available cephalexin 500 mg capsule TK 1 C PO BID 05/21 completed Not Available Not Available Not Available indomethaci n 50 mg capsule TK 1 C PO TID WF 05/21 completed Not Available Not Available Not Available hydrochloro thiazide 25 mg tablet TAKE 1 TABLET BY MOUTH EVERY DAY active Not Available Not Available No t Available ergocalcife rol (vitamin D2) 1,250 mcg (50,000 unit) capsule TAKE 1 CAPSULE BY MOUTH EVERY WEEK active Not Available Not Available No t Available estradiol 0.01% (0.1 mg/gram) vaginal cream APPLY A GRAPE SIZED AMOUNT TO INTROITUS /URETHRAL MEATUS 3 TIMES PER WEEK 2023 active Not Available Not Available Not Avai lable losartan 100 mg tablet TAKE 1 TABLET BY MOUTH EVERY MORNING AND 1/2 TABLET EVERY EVENING active Not Available Not Available No t Available naproxen 500 mg tablet TK 1 T PO Q 12 H 05/21 completed Not Available Not Available Not Available nitrofurant oin monohydrate /macrocryst als 100 mg capsule TK 1 C PO Q 12 H FOR 7 DAYS 05/21 completed Not Available Not Available Not Available levothyroxi ne 01/11 completed Not Available Not Available Not Available losartan 01/11 completed Not Available Not Available Not Available Vitamin D2 active Not Available Not Av ailable Not Available Fluzone Quad (PF) 60 mcg (15 mcg x 4)/0.5 mL IM syringe TO BE ADMINISTE RED BY PHARMACIS T FOR IMMUNIZAT ION 05/21 completed Not Available Not Available Not Available Vitals Date Recorded Body weight Systolic blood pressure Diastolic blood pressure Provider Name and Address Organization Details Last Updated DateTime 01/11/2022 80853.37 g 141 mm[Hg] 83 mm[Hg] [facility] 01/11/2022 14:46:27 Date Recorded Body height Body mass index (BMI) Body weight Systolic blood pressure Diastolic blood pressure Provider Name and Address Organization Details Last Updated DateTime 03/20/2022 160.02 cm 32.9 kg/m2 53169.18 g 118 mm[Hg] 76 mm[Hg] [facility] 14:20:49 Date Recorded Body height Body mass index (BMI) Body weight Systolic blood pressure Diastolic blood pressure Provider Name and Address Organization Details Last Updated DateTime 03/30/2023 160.02 cm 31.2 kg/m2 32567.26 g 114 mm[Hg] 74 mm[Hg] Margie Guerra [facility] 3 14:20:09 Date Recorded Body height Body mass index (BMI) Body weight Systolic blood pressure Diastolic blood pressure Provider Name and Address Organization Details Last Updated DateTime 05/21/2020 160.02 cm 31.7 kg/m2 63007.03 g 155 mm[Hg] 78 mm[Hg] Morelia Tadeo [facility] 0 14:14:27 Social History Question Answer Notes LastModified by Organizat ion Details LastModified Time Tobacco Smoking Status Never Smoker Moreliaisabel Tadeo [facility], [facility] 05/21/2020 14:03:34 In The 14 Days Before Symptom Onset, Have You Had Close Contact With A Laboratory-confirm ed COVID-19 While That Case Was Ill? No Information n ot available 03/30/2023 In The 14 Days Before Symptom Onset, Have You Had Close Contact With A Person Who Is Under Investigation For COVID-19 While That Person Was Ill? No Information not available 03/30/2023 Have You Been To An Area Known To Be High Risk For COVID-19? No Information not available 03/30/2023 Sex: Unknown Functional Status None recorded. Mental Status None recorded. Family History Relationship Description Onset Age of this Age Resolved Age Notes LastModified by Organization Details LastModified Time Sister Diabetes mellitus [email or web address] Not available 2019 13:59:28 Maternal Grandmother Heart disease [email or web address] Not available 2019 14:15:54 Medical History Condition Response Allergies (Food, seasonal, environmental ) N Other N Breast Cancer N Drug/Latex Allergies/Reactions N Blood Transfusion N Dermatologic Disorders N Lung Disease N Defects or Inherited Disease N Breast Problem N Gestational Diabetes N Hematologic disorders N Anesthesia Complications N History of STI N Deep Vein Thrombosis N Polycystic ovary syndrome N Anxiety Disorder Y Autoimmune disease N Arthritis N Infertility N Polyps N Acid Reflux (GERD) N History of abnormal pap N Cancer N Stroke N Varicosities N Neurologic/Epilepsy N Endometriosis N High Cholesterol N Headaches N Fibromyalgia N Kidney Disease N Heart Problems N Kidney or Bladder Problems N Thyroid Problems Y GI Problems Y Eating Disorder N Anemia N Art (IVF or FET) N Psychiatric Illness N Ovarian Cancer N Diabetes N Pulmonary (TB, Asthma) N Hepatitis/Liver Disease N Eczema N Urinary Tract Infection N Abuse/Domestic Violence N Asthma N Trauma/Violence N Depression/ depression N Heart Disease N Pre-Eclampsia N Hypertension Y Osteoporosis N Thrombophilias N Gynecological History Statement/Question Response Date of Last Mammogram 03/04/2022 Date of Last Colonoscopy 06/04/2014 Most Recent Bone Density 06/04/2019 Menses Monthly N Date of Last Pap Smear Current Control Method Hysterectom y LMP Unknown Obstetrics History GPAL:G 3 P 0 2 1 2 Type Value Spontaneous 1 Premature 2 Living 2 Total 3 Past Encounters Encounter ID Performer Location Encounter Start Date Encounter Closed Date Diagnosis/Indication Diagnosis SNOMED-CT Code Diagnosis ICD10 Code Diagnosis Note [id number] Christiane De Paz MD [place] [address] [address] 05/21/2020 13:37:49 05/21/2020 15:31:40 Atrophic vaginitis 93055191 N95.2 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 Midline cystocele 830059 003 N81.11 History of hysterectomy 683833638 Z90.711 R[place] 1988, [place] [id number] Christiane De Paz MD [place] [address],[place] [address] 01/11/2022 14:23:51 01/11/2022 16:40:06 Atrophic vaginitis 34257138 N95.2 [id number] Christiane De Paz MD [place] [address],[place] [address] 03/20/2022 14:05:00 03/21/2022 15:20:41 Gynecologic examination 56354440 Z01.419 Atrophic vaginitis 76029 000 N95.2 [id number] [facility]al [facility] [address],[place] [address] 03/30/2023 14:05:41 04/03/2023 18:09:50 Gynecologic examination 38634750 Z01.419 Take Calcium with Vitamin D 12-1500mg daily. Do monthly self breast exams. It is advised to get annual flu shot in the fall and she could obtain at [facility] or [facility] care clinic. If you haven't received the Tdap vaccine in the last 10 years you should obtain one as well. Have mammogram yearly, bone density every 2-3 years and colonoscop y every 5-10 years depending on findings and history. Engage in daily exercise of low impact aerobic exercise 45-60 minutes 4-5 times weekly. Avoid tobacco and illicit drugs as well as using moderation with alcohol intake less than 1-2 8 oz beverages daily. This lifestyle behavior pattern will lead to less health conditions and longer life span. If BMI greater than 25 weight watchers or dietary consult advised. Questions have been answered. Patient appears to understand instructio ns, but if you have any further questions call or respond to this email Pap/hpv discontinu ed hyst. USPSTF recommends against screening for cervical cancer in women older than 65yo, those who've had a hysterecto my for non-cancer indication s, & who have had adequate prior screening & are not otherwise at high risk for cervical cancer. STD Screen declinedGe netic Screen discussedC olon Screen UTD PCPDexa Screen PCP 2024 dueRoutine Labs UTD PCPMammo orderedThy roid being updated Atrophic vaginitis 48793 000 N95.2 Screening mammography 24 025399 Z12.31 Dysuria 13980094 R30.0 Prolapse o f female genital organs 17912623 N81.9 Health Concerns Section Related Observation LastModified by Organization Detai ls LastModified Time None Recorded Concern Status LastModified by Organization Details LastModified Time None Recorded Advance Directives Directive None Recorded Payers Encounter Date Sequence Insurance Name Policy Number Policy Armenta Covered Member ID Armenta Member ID Guarantor Name 05/21/2020 1 [facility] PRIOR TO 06/04/20 - DUAL ELIGIBLE (MEDICARE REPLACEMENT/AD VANTAGE - HMO) Nancy Daugherty [id number] Nancy Daugherty 01/11/2022 1 [facility] ON OR AFTER 12/02/20 (MEDICAID REPLACEMENT - HMO) [id number] 1 [facility] ON OR AFTER 12/02/20 (MEDICAID REPLACEMENT - HMO) [facility] [id number] [facility]/30/2023 1 [facility] ON OR AFTER 12/02/20 (MEDICAID REPLACEMENT - HMO) Nancy Daugherty [id number] Nancy Daugherty Notes Date Note Type Note Provider Name and Address Organization Details Recorded Time 05/21/2020 text/html Pt SHAUN is a 59yo here complaining of intense pressure feeling in vagina. Started in Mar wiith her 3rd UTI in 8 mos. Had horrible pressure with it, improved with antibiotic, but would still come intermittently. Does not feel the pressure in the morning, but with a long day or with lifting or squatting does. Improves with rest. No bulge that she has noticed. No urinary incontinence. Denies constipation. Some hot flashes. No vaginal bleeding. Additional concerns:none sexually active:no contraception: hyst Last annual exam: years but mammo UTD Christiane De Paz MD [address], [place], [address], [facility] 05/21/2020 16:10:33 01/11/2022 text/html Here for follow up urethral atrophy and symptomatic vaginitis again. ran out of estrace cream. having sx of UTI again off and on, burning, uncomfortable, swollen feeling, especially at urethra, seen by PCP for UTI but was not UTI. no bleeding. Christiane De Paz MD [address], [place], [address], [facility] 01/11/2022 16:39:20 03/20/2022 text/html Patient is a 61y o who presents for an annual exam. Restarted vaginal estrace in Jan and doing much better, needs refill. Hat RANDY and USO in . last pap-na mammo-2021 colonoscopy-aroun d 2015, 10 years dexa-2020, nl menopause-y sexually active-y seatbelts-y exercise-y depression-denies domestic violence-denies tobacco-n concerns- Christiane De Paz MD [address], [place], [address], [facility] 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 Post-MenopausalRe ported bypatient.Menopau tom Symptoms:no menopausal symptoms; normal vaginal lubrication Vaginal Bleeding:history of menopause having occurred; no history of post menopausal bleeding Urinary Symptoms:no hematuria; no incontinence; no nocturia; no urinary frequency Vulva:no genital lesion; no vulvar atrophy Vagina:normal vaginal discharge; no vaginal atrophy Breast:no breast lump; no nipple discharge; no breast pain Sexual Complaints:no sexual complaints Psychological Symptoms:no depression; no anxiety Preventive Measures:encourag e regular mammograms starting age 40; encourage self breast examination; encourage regular exercise; encourage no tobacco use; needs to schedule mammogram; history of recent colonoscopy Kinjal Verdugo, [facility]- [address], [place], [address], [facility] 04/03/2023 11:33:39 OBGyn Episode Ob Episode Information Episode Created Date Number of Fetuses Patient Bloodtype Patient rh Status Prepregnancy Weight lbs Domestic Partner Domestic Partner Phone Father Name Oracle Engineer Status 05/21/20 20 1 CLOSED Fetus Data First Name Last Name Admitted to NICU Weight (g) Sex Living Outcome Pediatric Complications Fetus ID Race Codes Race Delivery Type , Spontane ous [id number] Lee Calculation Initial Lee Date Initial Exam Date Initial Exam Provider Initial Ultrasound Date Last Menstrual Period Date Ultra Sound Weeks Gestation 0 Eighteen To Twenty Week Lee Update Ultra Sound Date Fundal Height At Umbil Quickening Date Ultra Sound Latest Weeks Gestation Final Lee Confirmed By Final Lee Confirmed Date Final Lee Date Ultra Sound Latest Days Gestation 0 0 Menstrual History Last Menstrual Date Menses Monthly On Bcp Conception Prior Menses Frequency Hcg Plus Date Menarche Onset Age Delivery Information Delivery Date Delivery Type Labor Anesthesia Weeks Gestation Incision Type Labor Labor Length Hrs Delivered By Post Complications Tubal Sterilization Discharge Date Comments 6 Discharge Information Feeding Method Contraceptive Method Maternal HG B and HCT Levels Ob Episode Information Episode Created Date Number of Fetuses Patient Bloodtype Patient rh Status Prepregnancy Weight lbs Domestic Partner Domestic Partner Phone Father Name Oracle Engineer Status 05/21/20 20 1 CLOSED Fetus Data First Name Last Name Admitted to NICU Weight (g) Sex Living Outcome Pediatric Complications Fetus ID Race Codes Race Delivery Type 3033.16 [id number] Primary Lee Calculation Initial Lee Date Initial Exam Date Initial Exam Provider Initial Ultrasound Date Last Menstrual Period Date Ultra Sound Weeks Gestation 0 Eighteen To Twenty Week Lee Update Ultra Sound Date Fundal Height At Umbil Quickening Date Ultra Sound Latest Weeks Gestation Final Lee Confirmed By Final Lee Confirmed Date Final Lee Date Ultra Sound Latest Days Gestation 0 0 Menstrual History Last Menstrual Date Menses Monthly On Bcp Conception Prior Menses Frequency Hcg Plus Date Menarche Onset Age Delivery Information Delivery Date Delivery Type Labor Anesthesia Weeks Gestation Incision Type Labor Labor Length Hrs Delivered By Post Complications Tubal Sterilization Discharge Date Comments 7 32 breech,c o rd prolapse Discharge Information Feeding Method Contraceptive Method Maternal HG B and HCT Levels Ob Episode Information Episode Created Date Number of Fetuses Patient Bloodtype Patient rh Status Prepregnancy Weight lbs Domestic Partner Domestic Partner Phone Father Name Oracle Engineer Status 05/21/20 20 1 CLOSED Fetus Data First Name Last Name Admitted to NICU Weight (g) Sex Living Outcome Pediatric Complications Fetus ID Race Codes Race Delivery Type [id number] [phone] [phone] Vaginal Delivery Lee Calculation Initial Lee Date Initial Exam Date Initial Exam Provider Initial Ultrasound Date Last Menstrual Period Date Ultra Sound Weeks Gestation 0 Eighteen To Twenty Week Lee Update Ultra Sound Date Fundal Height At Umbil Quickening Date Ultra Sound Latest Weeks Gestation Final Lee Confirmed By Final Lee Confirmed Date Final Lee Date Ultra Sound Latest Days Gestation 0 0 Menstrual History Last Menstrual Date Menses Monthly On Bcp Conception Prior Menses Frequency Hcg Plus Date Menarche Onset Age Delivery Information Delivery Date Delivery Type Labor Anesthesia Weeks Gestation Incision Type Labor Labor Length Hrs Delivered By Post Complications Tubal Sterilization Discharge Date Comments 3 36 eclampsi a ,hemorrha ge Discharge Information Feeding Method Contraceptive Method Maternal HG B and HCT Levels
--- OUTSIDE RECORDS SUMMARY | 2024-08-18 14:27 | XMS_ITS | Encounter Summary ---
Author Organization [facility] Address [address] [place] [address] Care Team Providers Care Technical Services Coordinator Name Role Phone Yonis Pinzon MD Primary Care Provider [phone] Suleiman Mo MD Unavailable [phone] Enrike Acevedo MD Unavailable [phone] Enrike Acevedo MD Unavailable [phone] Encounter Details Date Type Department Care Team (Late st Contact Info) Description 07/07/2022 Telephone [facility], Diabetes and Metabolism [facility] [facility], [place] [address] Suleiman Mo MD [address] [place] [address] of Endocrinology [place], [place] [id number] Social History Tobacco Use Types Packs/Day Years Used Date Smoking Tobacco: Former Cigarettes Q uit: 11/15/2013 Smokeless Tobacco: Never Alcohol Use Standard Drinks/Week Comments No 0 (1 standard drink = 0.6 oz pur e alcohol) Sex and Gender Information Value Date Recorded Sex Assigned at Female 06/07/2022 12:30 PM RIGGING MAN Gender Identity Female 06/07/2022 12:30 PM RIGGING MAN Sexual Orientation Straight 06/07/2022 12 :30 PM RIGGING MAN documented as of this encounter Miscellaneous Notes * Telephone Encounter - Cindy Steen - 07/07/2022 2:31 PM CST Current Provider name: Dr. Suleiman Mo Reason for call: Ms. Nancy Daugherty just missed phone call for her TEL APPT. PLEASE call. Patient Call Back number: [phone] ING MAN documented in this encounter Plan of Treatment Upcoming Encounters Date Type Department Care Team (Late st Contact Info) Description 02/18/2025 10:00 AM CDT Ancillary Procedure [facility] Echos[facility] [address], [facility] [address] [place] [phone] 02/18/2025 11:00 AM CDT Office Visit [facility] - Cardiology [address], [facility] [address] [place] [phone] Kady Roman DO [address] [facility] [place] [address] documented as of this encounter Visit Diagnoses Not on filedocumented in this encounter Care Teams Technical Services Coordinator Relationship Specialty Start Date End Date Yonis Pinzon MD [address] [place] [address] PCP - General 09/17/14 Suleiman Mo MD [address] [facility] [address] [place] [address] Endocrinology 02/27/24 [place] [address] [facility] [place] [phone] Hospitalist 02/27/24 02/27/24 Enrike Acevedo MD [address] [place] [address] Hospitalist 02/27/24 documented as of this encounter
--- OUTSIDE RECORDS SUMMARY | 2024-08-18 14:27 | XMS_ITS | Clinical Summary ---
Author Organization [facility] Address [address] [facility] [place] [address] Care Team Providers Care Retail Pharmacy Merchandiser Name Role Phone Yonis Pinzon MD Primary Care Provider [phone] Suleiman Mo MD Unavailable [phone] Enrike Acevedo MD Unavailable [phone] Source Comments [facility],non-owned Affiliates and Associated Physician Practices is amultiple site organization consisting of ambulatory clinics and hospital sitesin [place], [place], [place] and [place]. This disclosure is being madepursuant to the Care Everywhere program and may not contain all information available regarding this patient. Last updated 18.[facility] Allergies Active Allergy Reactions Criticality Noted Date Comments Wasp Venom Protein Unknown 06/09/2022 Wasps [Other] Shortness of Breath,Swelling High 03/04/2015 Received name: Wasps Medications * Be aware that medications may not be up to date on this document. Alwaysverify current medications with the patient. Medication Sig Dispensed Refills Start Date End Date Status Magnesium 400 MG Take 400 mg by mouth. 11/16/2016 Active cyclobenzaprine (FLEXERIL) 10 MG tablet Take 1 (one) tablet by mouth Active MULTIPLE VITAMINS-MINERALS PO Acti ve omeprazole (PRILOSEC OTC) capsule Take 2 (two) capsules by mouth daily before breakfast Active LORazepam (ATIVAN) 0.5 MG tabletIndications:Gas troesophageal reflux disease without esophagitis,Graves disease,Essential hypertension,Flushing Take 1 (one) tablet by mouth as needed 0 09/25/2017 Active Calcium Carbonate-Vit D-Min (CALCIUM 1200 PO) Take 2 tablets by mouth once daily Active estradiol (Estrace) 0.1 MG/GM vaginal cream APPLY GRAPE SIZED AMOUNT TO INTROITUS/URETHR AL MEATUS 3 TIMES PER WEEK 03/20/2022 Active losartan (Cozaar) 100 MG tabletIndications:Gas troesophageal reflux disease without esophagitis,Flushing, Gastro-esophageal reflux disease without esophagitis,Essential hypertension,Graves disease,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 TAKE 1 TABLET BY MOUTH IN THE MORNING AND HALF A TABLET IN THE EVENING 150 tablet 3 11/28/2023 Active levothyroxine (Synthroid) 88 MCG tablet Take 1 (one) tablet by mouth daily before breakfast Active atenolol (Tenormin) 25 MG tabletIndications:Ess ential hypertension Take 1.5 (one and one-half) tablets by mouth once daily 135 tablet 3 05/15/2024 Active Active Problems Problem Noted Date Diagnosed Date [...] Graves disease 11/18/2014 Hypovitaminosis D 11/18/2014 Immunizations Name Administration Dates Next Due INFLUENZA VACCINE 03/04/2018 Family History Medical History Relation Name Comments None Known Brother Status: Alive None Known Daughter Status: Alive Cancer Father skin cancer; St atus: None Known Maternal Grandfather Status: Other - Cardiac Maternal Grandmother Stat us: COPD - Chronic Obstructive Pulmonary Disease Mother Status: None Known Paternal Grandfather Status: None Known Paternal Grandmother Status: Diabetes - Type 2 Sister Status: Al abhinav None Known Son Status: Alive Allergy (Severe) Neg Hx CVA Neg Hx Cancer - Breast Neg Hx Cancer - Skin, Melanoma Neg Hx Cancer - Skin, Non Melanoma Neg Hx Eczema Neg Hx Hemophilia Neg Hx Psoriasis Neg Hx Rashes/Skin Problems Neg Hx Relation Name Status Comments Brother Daughter Father Maternal Grandfather Maternal Grandmother Mother Paternal Grandfather Paternal Grandmother Sister Son Social History Tobacco Use Types Packs/Day Years Used Date Smoking Tobacco: Former Cigarettes Q uit: 11/15/2013 Smokeless Tobacco: Never Tobacco Cessation:Counseling Given: Not Answered Alcohol Use Standard Drinks/Week Comments No 0 (1 standard drink = 0.6 oz pur e alcohol) Sex and Gender Information Value Date Recorded Sex Assigned at Female 06/07/2022 12:30 PM SILVER SOLDERER Gender Identity Female 06/07/2022 12:30 PM SILVER SOLDERER Sexual Orientation Straight 06/07/2022 12 :30 PM SILVER SOLDERER Last Filed Vital Signs Vital Sign Reading Time Taken Comments Blood Pressure 119/70 02/27/2024 11:38 AM CDT Pulse 56 02/27/2024 11:38 AM CDT Temperature 36.8 C (98.2 F) 06/09/2022 1:36 PM SILVER SOLDERER Respiratory Rate 12 11/16/2016 12:42 PM CDT Oxygen Saturation 97% 02/27/2024 11:38 AM CDT Inhaled Oxygen Concentration - - Weight 76.2 kg (168 lb) 02/27/2024 11:38 AM CDT Height 160 cm (5' 3 ) 02/27/2024 11:38 AM CDT Body Mass Index 29.76 02/27/2024 11:38 AM CDT Plan of Treatment Upcoming Encounters Date Type Department Care Team (Late st Contact Info) Description 02/18/2025 10:00 AM CDT Ancillary Procedure [facility] E[facility] [address] [facility], [address] [address] 02/18/2025 11:00 AM CDT Office Visit [facility] Cardiology [address] [facility], [address] [address] Kady Roman DO [address] [facility] [address] [address] Health Maintenance Due Date Last Done Comments BONE DENSITY TESTING 1960 COLOGUARD (AGES 45-75) - COLON CA SCREENING 1958 COLON MONITORING 1958 COLONOSCOPY - COLON CA SCREENING 1958 CT COLONOGRAPHY - COLON CA SCREENING 1960 Colorectal Cancer Screening 1958 FIT - COLON CA SCREENING 1958 FLEX SIG - COLON CA SCREENING 1958 MAMMOGRAM 1958 PAP SMEAR 1958 HIV SCREENING 1973 HEPATITIS C SCREENING 10/02/1976 DTAP/TDAP/TD VACCINES (1 - Tdap) 1977 PNEUMOCOCCAL VACCINE 50+ (1 of 1 - PCV) 2008 ZOSTER VACCINE (1 of 2) 2008 LIPID TESTING 10/29/2020 10/30/2015 COVID-19 VACCINE (1 - season) 2024 INFLUENZA VACCINE (#1) 2024 03/04/2018 SCREENING FOR DIABETES 02/27/2024 8, 11/13/2017, 08/11/2017, Additional history exists DEPRESSION SCREENING 06/04/2024 MEDICARE AWV CALENDAR YEAR 2024 Respiratory Syncytial Virus (RSV) Vaccine Pt: or over 60 yrs (1 - 1-dose 75+ series) 2033 HEPATITIS B VACCINE Aged Out No longe r eligible based on patient's age to complete this topic HIB VACCINE Aged Out No longer eligi ble based on patient's age to complete this topic HPV VACCINE Aged Out No longer eligi ble based on patient's age to complete this topic MENINGOCOCCAL (Group B) VACCINE SHARED DECISION-MAKING Aged Out No longer eligible based on patient's age to complete this topic MENINGOCOCCAL GROUPS A/C/Y/W VACCINE Aged Out No longer eligible based on patient's age to complete this topic Procedures Procedure Name Priority Date/Time Associated Diagnosis Comments BASIC METABOLIC PANEL (CALCIUM TOTAL) 11/13/2017 8:10 AM CDT LIPID PROFILE W LDL/HDL RATIO Routine 10/30/2015 9:06 AM CDT from Last 3 Months or Most Recently Relevant to Health Maintenance Results * (ABNORMAL) BASIC METABOLIC PANEL (CALCIUM TOTAL) (11/13/2017 8:10 AM CDT) Glucose 100(H) 65 - 99 mg/dL [facility] [...] approximately 13% higher for people identified as -Tajik. eGFR by MDRD 89 > OR = [...] 10.4 mg/dL [facility] Comment: Test Performed at: [employer] [id number] HARDIK WALKER DO,MPH 11/13/2017 8:10 AM CDT 11/13/2017 8:11 AM CDT Sumanth Duong MD LAB - CHEMISTRY [facility] ([place], [place]) Organization Address City/State/ZIP Co de Phone Number [facility] [address] [place] [address] * LIPID PROFILE W LDL/HDL RATIO (10/30/2015 9:06 AM CDT) Cholesterol Total 168 125 - 200 mg/dL [facility] Comment: Test Performed at: [employer] [id number] [id number] HARDIK WALKER DO,MPH HDL 65 > OR = 46 mg/dL [facility] Triglycerides 72 <150 mg/dL [facility] LDL Calculated 89 <130 mg/dL (calc) [facility] Comment: Desirable range <100 mg/dL for patients with CHD or diabetes and <70 mg/dL for diabetic patients with known heart disease. Chol/HDL Ratio 2.6 < OR = 5.0 (calc) [facility] LDl/HDL Ratio 1.4 (calc) [facility] Comment: Below average Risk: <2.34 Average Risk: 2.35-4.12 Moderate Risk: 4.13-5.56 High Risk: >5.57 Non HDL Cholesterol 103 mg/dL (calc) [facility] Comment: Target for non-HDL cholesterol is 30 mg/dL higher than LDL cholesterol target. 10/30/2015 9:06 AM CDT 10/30/2015 9:07 AM CDT Yonis Pinzon MD LAB - CHEMISTRY [facility] ([place], [place]) Organization Address City/State/ZIP Co de Phone Number [facility] from Last 3 Months or Most Recently Relevant to Health Maintenance Care Teams Retail Pharmacy Merchandiser Relationship Specialty Start Date End Date Yonis Pinzon MD [address] [facility] [address] [place] [address] PCP - General 09/17/14 Suleiman Mo MD [address] [place] [address] Endocrinology 02/27/24 Enrike Acevedo MD [address] [facility] [address] [place] [address] Hospitalist 02/27/24
--- OUTSIDE RECORDS SUMMARY | 2024-08-18 14:27 | XMS_ITS | Encounter Summary ---
Author Organization [facility] Address [address] [place] [address] Care Team Providers Care Wet Washer Machine Name Role Phone Yonis Pinzon MD Primary Care Provider [phone] Suleiman Mo MD Unavailable [phone] Enrike Acevedo MD Unavailable [phone] Enrike Acevedo MD Unavailable [phone] Encounter Details Date Type Department Care Team (Late st Contact Info) Description 04/26/2021 Telephone [facility], Diabetes and Metabolism [facility] [facility], [place] [address] Suleiman Mo MD [address] [place] [address] of Endocrinology [place], [place] [id number] Social History Tobacco Use Types Packs/Day Years Used Date Smoking Tobacco: Former Cigarettes Q uit: 11/15/2013 Smokeless Tobacco: Never Alcohol Use Standard Drinks/Week Comments No 0 (1 standard drink = 0.6 oz pur e alcohol) Sex and Gender Information Value Date Recorded Sex Assigned at Female 06/07/2022 12:[address] DEPUTY CLERK Gender Identity Female 06/07/2022 12:[address] DEPUTY CLERK Sexual Orientation Straight 06/07/2022 12 :[address] DEPUTY CLERK documented as of this encounter Miscellaneous Notes * Telephone Encounter - Antonia Aguilera - 04/26/2021 9:58 AM CST Patient wants to know if she can get blood work done before her next appointment on 05/12/21 telephone visit.. ANG: 03/07/2019 NOV:05/12/[address] DEPUTY CLERK documented in this encounter Plan of Treatment Upcoming Encounters Date Type Department Care Team (Late st Contact Info) Description 02/18/2025 10:00 AM CDT Ancillary Procedure [facility] Echos[facility] [address], [place] [address] [place] [address] 02/18/2025 11:00 AM CDT Office Visit [facility] - Cardiology [address], [facility] [address] [place] [address] Kady Roman DO [address] [place] [address] documented as of this encounter Visit Diagnoses Not on filedocumented in this encounter Care Teams Wet Washer Machine Relationship Specialty Start Date End Date Yonis Pinzon MD [address] [place] [address] PCP - General 09/17/14 Suleiman Mo MD [address] [place] [address] Endocrinology 02/27/24 [place] [address] [place] [phone] Hospitalist 02/27/24 02/27/24 Enrike Acevedo MD [address] [place] [address] Hospitalist 02/27/24 documented as of this encounter
--- OUTSIDE RECORDS SUMMARY | 2024-08-18 14:27 | XMS_ITS | Continuity of Care Document ---
Author Organization [facility] Address [address] [place] [address] Phone Care Team Providers Care Finishing Pan Operator Name Role Phone Yonis Pinzon MD Unavailable Unavailable Allergies, Adverse Reactions, Alerts Substance Reaction Status Criticality No Known Allergies Active No Inform ation Medications Medication Instructions Dosage Effective Dates (start - stop) Status Comments Ativan 0.5 mg tablet take 1 Tablet by oral route 2 times every day as needed as needed 0.5 MG - Active PRN for anxiety, avoid driving or operate machines Synthroid 88 mcg tablet take 1 tablet by oral route every day 88 MCG - Active cyclobenzaprine 10 mg tablet take 1 tablet by oral route 3 times every day as needed 10 MG - Active avoid driving or operate machines hydrochlorothiazide 25 mg tablet take 1 tablet by oral route every day 25 MG - Active Vitamin D2 1,250 mcg (50,000 unit) capsule take 1 capsule by oral route every week - Active omeprazole 40 mg capsule,delayed release take 1 capsule by oral route every day before a meal 40 MG - Active atenolol 25 mg tablet take 1 tablet by oral route every day 25 MG - Active losartan 100 mg tablet take 1 tablet by oral route every day 100 MG - Active Procedures Procedure Date PREV VISIT, EST, 65 & OVER OFFICE/OUTPATIENT VISIT, EST OFFICE/OUTPATIENT VISIT, EST OFFICE/OUTPATIENT VISIT, EST OFFICE/OUTPATIENT VISIT, EST PREV VISIT, EST, AGE 40-64 OFFICE/OUTPATIENT VISIT, EST OFFICE/OUTPATIENT VISIT, EST PREV VISIT, EST, AGE 40-64 OFFICE/OUTPATIENT VISIT, EST OFFICE/OUTPATIENT VISIT, EST OFFICE/OUTPATIENT VISIT, EST OFFICE/OUTPATIENT VISIT, EST OFFICE/OUTPATIENT VISIT, EST OFFICE/OUTPATIENT VISIT, EST OFFICE/OUTPATIENT VISIT, EST PREV VISIT, EST, AGE 40-64 OFFICE/OUTPATIENT VISIT, EST OFFICE/OUTPATIENT VISIT, EST OFFICE/OUTPATIENT VISIT, EST PREV VISIT, EST, AGE 40-64 OFFICE/OUTPATIENT VISIT, EST OFFICE/OUTPATIENT VISIT, EST OFFICE/OUTPATIENT VISIT, EST OFFICE/OUTPATIENT VISIT, EST OFFICE/OUTPATIENT VISIT, EST PREV VISIT, EST, AGE 40-64 OFFICE/OUTPATIENT VISIT, EST OFFICE/OUTPATIENT VISIT, EST OFFICE/OUTPATIENT VISIT, EST OFFICE/OUTPATIENT VISIT, EST PREV VISIT, EST, AGE 40-64 OFFICE/OUTPATIENT VISIT, EST OFFICE/OUTPATIENT VISIT, EST OFFICE/OUTPATIENT VISIT, EST PREV VISIT, EST, AGE 40-64 OFFICE/OUTPATIENT VISIT, EST OFFICE/OUTPATIENT VISIT, EST OFFICE/OUTPATIENT VISIT, EST OFFICE/OUTPATIENT VISIT, EST OFFICE/OUTPATIENT VISIT, EST PREV VISIT, NEW, AGE 40-64 Advance Directives Directive Yes / No Effective Date File Name No Information Encounters Encounter Description Practice Location Reason(s) For Visit Diagnoses Date Provider Providers Copied on Encounter PREV VISIT, EST, 65 & OVER [facility], [address], [place], [address], [place] tel:[phone] [facility] physical (chief complaint) Encounter for general adult medical examination without abnormal findings Aug-0 5 Jeromy Somers. [address] [facility] [address], [place], [place], [address] , [place]. tel:[phone] OFFICE/OUTPA TIENT VISIT, [facility], [place], [address] [place] [place], [place], [address], [place] tel:[phone] [facility] chronic pain1 (chief complaint)thyro id1 (chief complaint)anxie ty1 (chief complaint)HTN (chief complaint) Generalized Anxiety DisorderChroni c pain syndromeHypoth yroidismEssent ial (primary) hypertensionGE RD without esophagitisOth er specified disorder of bone density Feb-0 4 Jer[facility] Somers. [address] [facility] [place], [place], [address] , [place]. tel:[phone] OFFICE/OUTPA TIENT VISIT, [facility], [place], [address] [place] [place], [address], [place] [phone] [facility] anxiety1 (chief complaint)back pain1 (chief complaint)vitam in D (chief complaint) Generalized Anxiety DisorderChroni c pain syndrome Aug- 4 Jeromy Somers. [address], [place], [place], [address] , [place]. tel:[phone] OFFICE/OUTPA TIENT VISIT, [facility], [place], [address] [place], [address], [place] tel:[phone] [facility] thyroid (chief complaint)anxie ty1 (chief complaint) Hypothyroidism Generalized Anxiety Disorder May- 3 Jeromy Somers. [address] [place], [address] , [place]. tel:[phone] OFFICE/OUTPA TIENT VISIT, [facility], [place], [address] [place], [address], [place] tel:[phone] [facility] glucose1 (chief complaint)HLP (chief complaint)thyro id (chief complaint) Mixed hyperlipidemia HyperglycemiaH ypothyroidismI nconclusive mammogram 3 Jeromy Carpio [address], [place], [place], [address] , [place]. tel:[phone] PREV VISIT, EST, AGE 40-64 [facility], [address], [place], [place], [address], [place] tel:[phone] [facility] physical (chief complaint) Encounter for general adult medical examination without abnormal findings 3 Jeromy Carpio [address], [place], [place], [address] , [place]. [phone] OFFICE/OUTPA TIENT VISIT, EST [facility], [address], [place], [place], [address], [place] tel:[phone] [facility] thyroid1 (chief complaint)HTN (chief complaint)anxie ty1 (chief complaint)back pani1 (chief complaint)chest pain1 (chief complaint) Hypothyroidism GERD w/o esophagitisEss ential (primary) hypertensionCh ronic pain syndromeGenera lized Anxiety DisorderChest pain 3 Jeromy Carpio [address], [place], [place], [address] , [place]. tel:[phone] OFFICE/OUTPA TIENT VISIT, EST [facility], [address], [place], [place], [address], [place] tel:[phone] [facility] HTN (chief complaint)back pain1 (chief complaint)anxie ty1 (chief complaint)grave disease1 (chief complaint) Essential (primary) hypertensionGe neralized Anxiety DisorderChroni c pain syndromeHypoth yroidismEdema Sep-0 2 Jeromy Carpio [address], [place], [place], [address] , [place]. [phone] PREV VISIT, EST, AGE 40-64 [facility], [address], [place], [place], [address], [place] tel:[phone] [facility] physical (chief complaint) Encounter for general adult medical examination without abnormal findings 2 Jeromy Carpio [address], [address], [place], [place], [address] , [place]. tel:[phone] OFFICE/OUTPA TIENT VISIT, [facility], [place], [address] [place], [address], [place] tel:[phone] [facility] anxiety1 (chief complaint)back pain1 (chief complaint)HTN (chief complaint)thyro id1 (chief complaint) Generalized Anxiety DisorderChroni c pain syndromeEssent ial (primary) hypertensionHy pothyroidism 1 Jeromy Carpio [address], [place], [place], [address] , [place]. tel:[phone] OFFICE/OUTPA TIENT VISIT, [facility], [place], [address] [place], [address], [place] tel:[phone] [facility] anxiety1 (chief complaint)GERD1 (chief complaint)gluco se1 (chief complaint)COVID 1 (chief complaint) GERD w/o esophagitisGen eralized Anxiety DisorderHyperg lycemiaViral infectionHypot hyroidism 1 Jeromy Carpio [address], [place], [place], [address] , [place]. tel:[phone] OFFICE/OUTPA TIENT VISIT, [facility], [place], [address], [address], [place] tel:[phone] [facility] COVID (chief complaint) Viral infectionMyalg ia 1 Jeromy Carpio [address], [place], [place], [address] , [place]. tel:[phone] OFFICE/OUTPA TIENT VISIT, [facility], [place], [address], [address], [place] tel:[phone] [facility] COVID (chief complaint) Viral infection 1 Jeromy Carpio [address], [place], [place], [address] , [place]. tel:[phone] OFFICE/OUTPA TIENT VISIT, EST [facility], [address], [place], [place], [address], [place] tel:[phone] [facility] UTI1 (chief complaint)hypot hyroidism1 (chief complaint)anxie ty1 (chief complaint)back pain1 (chief complaint)low D (chief complaint) Hypothyroidism Generalized Anxiety DisorderUrinar y tract infectionVitam in D deficiency, unspecifiedEnc ounter for oth screening for malignant neoplasm of breastLumbago 0 Jeromy Somers. [address], [place], [place], [address] , [place]. tel:[phone] OFFICE/OUTPA TIENT VISIT, [facility], [place], [address], [place], [place], [address], [place] tel:[phone] [facility] grave disease1 (chief complaint)gluos e1 (chief complaint) Hypothyroidism Hyperglycemia 0 Jeromy Somers. [address], [place], [place], [address] , [place]. tel:[phone] OFFICE/OUTPA TIENT VISIT, EST [facility], [address], [place], [place], [address], [place] tel:[phone] [facility] hyperglycemia1 (chief complaint)gout1 (chief complaint) HyperglycemiaG out 0 Jeromy Somers. [address], [place], [place], [address] , [place]. tel:[phone] PREV VISIT, EST, AGE 40-64 [facility], [address] [place], [address], [place] tel:[phone] [facility] physical (chief complaint) Encntr for general adult medical exam w/o abnormal findings 0 Jeromy Somers. [address], [place], [place], [address] , [place]. tel:[phone] OFFICE/OUTPA TIENT VISIT, [facility], [place], [address], [place], [place], [address], [place] tel:[phone] [facility] thyroid (chief complaint)cardi ac murmur (chief complaint)anxie ty1 (chief complaint)skin (chief complaint)weigh t loss1 (chief complaint) Hypothyroidism Cardiac murmur, unspecifiedGen eralized Anxiety DisorderFollic ular cyst of skinOther specified disorder of bone densityAbnorma l weight loss 9 Jeromy Carpio [address], [place], [place], [address] , [place]. tel:[phone] Referring Provider: Efren Arango [facility], [place], [place], [address]. tel:[phone] OFFICE/OUTPA TIENT VISIT, [facility], [place], [address], [place], [place], [address], [place] tel:[phone] [facility] thyroid1 (chief complaint)low D (chief complaint)tobac co1 (chief complaint)sleep apnea1 (chief complaint) Hypothyroidism Sleep apneaTobacco useVitamin D deficiency, unspecified 9 Jeromy Carpio [address], [place], [place], [address] , [place]. tel:[phone] Referring Provider: Efren Arango [facility], [place], [place], [address]. tel:[phone] OFFICE/OUTPA TIENT VISIT, [facility], [place], [address], [place], [place], [address], [place] tel:[phone] [facility] hand pain1 (chief complaint)anxie ty1 (chief complaint)HTN (chief complaint)foot pain1 (chief complaint) Pain in handPain in footEssential (primary) hypertensionDi sorder of thyroid, unspecifiedCar diac murmur, unspecifiedEnc ounter for oth screening for malignant neoplasm of breast 9 Jeromy Carpio [address], [place], [place], [address] , [place]. tel:[phone] Referring Provider: Yonis Pinzon, [address], [place], [place], [address]. tel:[phone] PREV VISIT, EST, AGE 40-64 [facility], [address], [place], [place], [address], [place] tel:[phone] [facility] PHysical (chief complaint) Essential (primary) hypertensionCa rdiac murmur, unspecifiedSle ep apneaDisorder of thyroid, unspecifiedGen eralized Anxiety DisorderEncoun ter for general adult medical exam w abnormal findings 8 Jeromy Somers. [address] [facility] [address], [place], [place], [address] , [place]. tel:[phone] Referring Provider: Efren Arango [facility] A, [place], [place], [address]. tel:[phone] OFFICE/OUTPA TIENT VISIT, [facility], [place], [address] [place], [address], [place] tel:[phone] [facility] sleep apnea1 (chief complaint)murmu r1 (chief complaint)HTN (chief complaint)hand pain1 (chief complaint) Essential (primary) hypertensionSl eep apneaNonrheuma tic mitral valve regurgitationP ain in unspecified finger(s)Gener alized Anxiety Disorder Sep-0 8 Jeromy Somers. [address], [place], [place], [address] , [place]. tel:[phone] Referring Provider: Yonis Pinzon [address], [place], [place], [address]. tel:[phone] OFFICE/OUTPA TIENT VISIT, [facility], [place], [address] [place], [address], [place] tel:[phone] [facility] murmur1 (chief complaint)pulmo nary HTN (chief complaint)anxie ty1 (chief complaint)HTN (chief complaint) Primary pulmonary hypertensionNo nrheumatic mitral valve regurgitationC ardiac murmur, unspecifiedEss ential (primary) hypertension 8 Jeromy Carpio [address], [place], [place], [address] , [place]. [phone] Referring Provider: Efren Arango [address], [place], [place], [address]. tel:[phone] OFFICE/OUTPA TIENT VISIT, EST [facility], [address], [place], [place], [address], [place] [phone] [facility] sick (chief complaint)cardi ac murmur (chief complaint)ear cerumen (chief complaint) Cardiac murmur, unspecifiedImp acted cerumen, left earAcute upper respiratory infection, unspecified 7 Jeromy Carpio [address], [place], [place], [address] , [place]. [phone] Referring Provider: Efren Ar[address], [place], [place], [address]. tel:[phone] OFFICE/OUTPA TIENT VISIT, EST [facility], [address], [place], [place], [address], [place] tel:[phone] [facility] HTN (chief complaint)anxie ty1 (chief complaint)GERD1 (chief complaint)back pain1 (chief complaint) Essential (primary) hypertensionGE RD without esophagitisGen eralized Anxiety DisorderLumbag o 7 Jeromy Carpio [address], [place], [place], [address] , [place]. tel:[phone] Referring Provider: Efren Arango [address], [place], [place], [address]. tel:[phone] PREV VISIT, EST, AGE 40-64 [facility], [address], [place], [place], [address], [place] tel:[phone] [facility] PHysical (chief complaint) Encounter for general adult medical exam w abnormal findingsGERD without esophagitisEss ential (primary) hypertensionLu mbago 7 Jeromy Carpio [address], [place], [place], [address] , . tel:[phone] Referring Provider: Efren Arango [address], [place], [place], [address]. tel:[phone] OFFICE/OUTPA TIENT VISIT, [facility], [place], [address], [place], [place], [address], tel:[phone] [facility] back pain1 (chief complaint)HTN (chief complaint)hoars eness (chief complaint)GERD1 (chief complaint) GERD without esophagitisHoa rsenessEssenti al (primary) hypertensionBa ck pain Phill-0 9-201 7 Jeromy Somers. [address], [place], [place], [address] , . tel:[phone] Referring Provider: [address], [place], [place], [address]. tel:[phone] OFFICE/OUTPA TIENT VISIT, [facility], [place], [address], [place], [place], [address], tel:[phone] [facility] throat burning1 (chief complaint) HoarsenessGERD w/ esophagitisPai n in throat 0- 6 Jeromy Somers. [address], [place], [place], [address] , [place]. tel:[phone] Referring Provider: Efren Arango [address], [place], [place], [address]. tel:[phone] OFFICE/OUTPA TIENT VISIT, [facility], [place], [address], [place], [place], [address], [place] tel:[phone] [facility] HTN (chief complaint)GERD1 (chief complaint)back pain1 (chief complaint)foot pain1 (chief complaint) Gastro-esophag eal reflux disease without esophagitisEss ential (primary) hypertensionBa ck painPain in unspecified foot Dec-0 -201 6 Jeromy Somers. [address], [place], [place], [address] , [place]. [phone] Referring Provider: Efren Arango [address], [place], [place], [address]. tel:[phone] PREV VISIT, EST, AGE 40-64 [facility], [address], [place], [place], [address], [place] tel:[phone] [facility] PHysical (chief complaint) Encounter for general adult medical exam w abnormal findingsEssent ial (primary) hypertensionAb normal wt loss Sep- 6 Jeromy Somers. [address], [place], [place], [address] , [place]. [phone] Referring Provider: Efren Arango [facility], [place], [place], [address]. tel:[phone] OFFICE/OUTPA TIENT VISIT, [facility], [place], [address], [place], [place], [address], [place] tel:[phone] [facility] cough (chief complaint)cough 1 (chief complaint)Weigh t loss (chief complaint) Acute bronchitis, unspecifiedAte lectasisPerson al history of nicotine dependenceAbno rmal weight loss Jun- 6 Jeromy Somers. [address] [facility] [address], [place], [place], [address] , [place]. [phone] Referring Provider: Efren Arango [facility], [place], [place], [address]. tel:[phone] OFFICE/OUTPA TIENT VISIT, [facility], [place], [address], [place], [place], [address], [place] tel:[phone] [facility] HTN1 (chief complaint)GERD1 (chief complaint)grave (chief complaint)back pain1 (chief complaint)palpi tation1 (chief complaint) Essential (primary) hypertensionGE RD without esophagitisDis order of thyroid, unspecifiedPal pitations Dec-0 5 Jeromy Carpio [address], [place], [place], [address] , [place]. tel:[phone] Referring Provider: Efren Ar[address], [place], [place], [address]. tel:[phone] PREV VISIT, EST, AGE 40-64 [facility], [address], [place], [place], [address], [place] tel:[phone] [facility] Physical (chief complaint) Routine Medical ExamDietary surveillance and counselingRout ine Medical Exam 5 Jeromy Somers. [address], [place], [place], [address] , [place]. tel:[phone] Referring Provider: Efren Arango [address], [place], [place], [address]. tel:[phone] OFFICE/OUTPA TIENT VISIT, [facility], [place], [address], [place], [place], [address], [place] tel:[phone] [facility] back pain (chief complaint)hyper thyroidism (chief complaint)HTN (chief complaint)GERD (chief complaint)palpi taton (chief complaint) Dietary surveillance and counselingPalp itationsUnspec ified disorder of thyroidHyperte nsion, UnspecifiedGER D 4 Jeromy Somers. [address], [place], [place], [address] , [place]. tel:[phone] Referring Provider: Efren Ar[address], [place], [place], [address]. tel:[phone] OFFICE/OUTPA TIENT VISIT, [facility], [place], [address], [place], [place], [address], [place] tel:[phone] [facility] hyperthyroidism (chief complaint)heada gianni (chief complaint)bee allergy (chief complaint) Dietary surveillance and counselingUnsp ecified disorder of thyroidPalpita tionsHeadache 4 Jeromy Somers. [address], [place], [place], [address] , [place]. tel:[phone] Referring Provider: Efren Arango [address], [place], [place], [address]. tel:[phone] OFFICE/OUTPA TIENT VISIT, [facility], [place], [address], [place], [place], [address], [place] tel:[phone] [facility] hyperthyroidism (chief complaint) Hypertension, UnspecifiedUns pecified disorder of thyroidDietary surveillance and counseling 4 Jeromy Somers. [address], [place], [place], [address] , [place]. tel:[phone] Referring Provider: Efren Arango [address], [place], [place], [address]. tel:[phone] OFFICE/OUTPA TIENT VISIT, [facility], [place], [address], [place], [place], [address], [place] tel:[phone] [facility] grave disease (chief complaint) Goiter, unspecifiedHyp ertension, Unspecified 4 Jeromy Somers. [address], [place], [place], [address] , [place]. tel:[phone] Referring Provider: Efren Arango [address], [place], [place], [address]. tel:[phone] OFFICE/OUTPA TIENT VISIT, [facility], [place], [address], [place], [place], [address], [place] tel:[phone] [facility] Grave disease (chief complaint)chorn ic pain (chief complaint) Unspecified disorder of thyroidGoiter, unspecifiedCHR ONIC PAIN NECUnspecified vitamin d deficiency 4 Jeromy Somers. [address], [place], [place], [address] , [place]. tel:[phone] Referring Provider: Efren Arango [address], [place], [place], [address]. tel:[phone] PREV VISIT, NEW, AGE 40-64 [facility], [address], [place], [place], [address], [place] tel:[phone] [facility] Physical (chief complaint) Dietary surveillance and counselingRout ine Medical ExamRoutine Medical Exam 4 Jeromy Somers. [address], [place], [place], [address] , [place]. tel:[phone] Family History Family Member Type Diagnosis Age At Onset Mother Problem (finding) COPD Sister Problem (finding) Diabetes mellitus Father Problem (finding) Cancer - blood Payers Payer name Insurance type Covered libertarian ID Clarita suarez(s) [employer] Medicare CI [id number] Social History Type Description Quantity Date Captured Comments Alcohol Use Details No Caffeine Use Details Unknown Tobacco Use Status Ex-cigarette smoker 025 Smoking Status Former smoker Sex Female Vital Signs Date / Time: Height Weight BMI Pulse Rate Blood Pressure Temperature Respiratory Rate Body Surface Area Head Circumference BMI percentile Pulse Ox Inhaled Ox 2:39 PM 63.00 in 176.20 lbs 31.2 1 kg/m eter (2) 63 /min 140/80 mm[Hg] 97.7 F 16 /min Chief Complaint And Reason For Visit From encounter dated 08/04/2024 14:25'. physical (chief complaint). Description: Pt needs annual physical Pt has HTN Pt takes hctz and losartan and atenolol and doing ok. Pt sees cardiology. Pt has low back pain Pt takes flexeril PRN. Pt has chronic anxiety Pt takes ativan PRn and doing ok Pt has hypothyroidism Pt takes synthroid Pt has chronic GERD pt is on omeprazole. Pt c/o left hip pain for 2-3 months Pt denies any injury Pt deniesany sciatica. Pt notices sharp pain, especially with movement Plan Of Treatment Date Type Action Status Goal Sigmoidoscopy. Due on due Goal Influenza vaccine. Due on due Goal Pneumococcal vaccine. Due on due Goal Td vaccine. Due on due Goal Tdap. Due on due Goal Zoster vaccine. Due on due Goal FOBT. Due on due Goal Lipid panel. Due on 025 due Goal Pap/HPV testing. Due on due Goal Cognitive assessment. Due on due Goal Depression screening. Due on due Goal Sigmoidoscopy. Due on due Goal Influenza vaccine. Due on due Goal Pneumococcal vaccine. Due on due Goal Td vaccine. Due on due Goal Tdap. Due on due Goal Zoster vaccine. Due on due Goal FOBT. Due on due Goal Lipid panel. Due on due Goal Pap/HPV testing. Due on due Goal Cognitive assessment. Due on due Goal Depression screening. Due on due Goal Sigmoidoscopy. Due on due Goal Influenza vaccine. Due on due Goal Td vaccine. Due on due Goal Tdap. Due on due Goal Zoster vaccine. Due on due Goal FOBT. Due on due Goal Lipid panel. Due on due Goal Pap/HPV testing. Due on due Goal Depression screening. Due on due Goal Sigmoidoscopy. Due on due Goal Influenza vaccine. Due on due Goal Td vaccine. Due on due Goal Tdap. Due on due Goal Zoster vaccine. Due on due Goal FOBT. Due on due Goal Lipid panel. Due on due Goal Pap/HPV testing. Due on due Goal Depression screening. Due on due Goal Sigmoidoscopy. Due on due Goal Influenza vaccine. Due on due Goal Td vaccine. Due on due Goal Tdap. Due on due Goal Zoster vaccine. Due on due Goal FOBT. Due on due Goal Lipid panel. Due on due Goal Pap/HPV testing. Due on due Goal Depression screening. Due on due Goal Sigmoidoscopy. Due on due Goal Influenza vaccine. Due on due Goal Td vaccine. Due on due Goal Tdap. Due on due Goal Zoster vaccine. Due on due Goal FOBT. Due on due Goal Lipid panel. Due on 023 due Goal Pap/HPV testing. Due on due Goal Depression screening. Due on due Goal Sigmoidoscopy. Due on due Goal Influenza vaccine. Due on due Goal Td vaccine. Due on due Goal Tdap. Due on due Goal Zoster vaccine. Due on due Goal FOBT. Due on due Goal Lipid panel. Due on 023 due Goal Pap/HPV testing. Due on due Goal Depression screening. Due on due Goal Sigmoidoscopy. Due on due Goal Influenza vaccine. Due on due Goal Td vaccine. Due on due Goal Tdap. Due on due Goal Zoster vaccine. Due on due Goal FOBT. Due on due Goal Lipid panel. Due on due Goal Pap/HPV testing. Due on due Goal Depression screening. Due on due Goal Sigmoidoscopy. Due on due Goal Influenza vaccine. Due on due Goal Td vaccine. Due on due Goal Tdap. Due on due Goal Zoster vaccine. Due on due Goal FOBT. Due on due Goal Lipid panel. Due on 022 due Goal Pap/HPV testing. Due on due Goal Depression screening. Due on due Goal Sigmoidoscopy. Due on due Goal Influenza vaccine. Due on due Goal Td vaccine. Due on due Goal Tdap. Due on due Goal Zoster vaccine. Due on due Goal FOBT. Due on due Goal Lipid panel. Due on due Goal Pap/HPV testing. Due on due Goal Depression screening. Due on due Goal Sigmoidoscopy. Due on due Goal Influenza vaccine. Due on due Goal Td vaccine. Due on due Goal Tdap. Due on due Goal Zoster vaccine. Due on due Goal FOBT. Due on due Goal Lipid panel. Due on due Goal Pap/HPV testing. Due on due Goal Depression screening. Due on due Goal Sigmoidoscopy. Due on due Goal Influenza vaccine. Due on due Goal Td vaccine. Due on due Goal Tdap. Due on due Goal Zoster vaccine. Due on due Goal FOBT. Due on due Goal Lipid panel. Due on due Goal Pap/HPV testing. Due on due Goal Depression screening. Due on due Goal Sigmoidoscopy. Due on due Goal Influenza vaccine. Due on due Goal Td vaccine. Due on due Goal Tdap. Due on due Goal Zoster vaccine. Due on due Goal FOBT. Due on due Goal Lipid panel. Due on due Goal Pap/HPV testing. Due on due Goal Depression screening. Due on due Goal Sigmoidoscopy. Due on due Goal Influenza vaccine. Due on due Goal Td vaccine. Due on due Goal Tdap. Due on due Goal Zoster vaccine. Due on due Goal FOBT. Due on due Goal Lipid panel. Due on 020 due Goal Pap/HPV testing. Due on due Goal Depression screening. Due on due Goal Sigmoidoscopy. Due on due Goal Influenza vaccine. Due on due Goal Td vaccine. Due on due Goal Tdap. Due on due Goal Zoster vaccine. Due on due Goal FOBT. Due on due Goal Lipid panel. Due on due Goal Pap/HPV testing. Due on due Goal Depression screening. Due on due Goal Sigmoidoscopy. Due on due Goal Influenza vaccine. Due on due Goal Td vaccine. Due on due Goal Tdap. Due on due Goal Zoster vaccine. Due on due Goal FOBT. Due on due Goal Lipid panel. Due on due Goal Pap/HPV testing. Due on due Goal Depression screening. Due on due Goal Sigmoidoscopy. Due on due Goal Influenza vaccine. Due on due Goal Td vaccine. Due on due Goal Tdap. Due on due Goal Zoster vaccine. Due on due Goal FOBT. Due on due Goal Lipid panel. Due on due Goal Pap/HPV testing. Due on due Goal Depression screening. Due on due Goal Tobacco cessation counseling completed Goal Sigmoidoscopy. Due on due Goal Influenza vaccine. Due on due Goal Td vaccine. Due on 19 due Goal Tdap. Due on due Goal Zoster vaccine. Due on due Goal FOBT. Due on due Goal Lipid panel. Due on due Goal Pap/HPV testing. Due on due Goal Depression screening. Due on due Goal Special diet education compl eted Goal Tobacco cessation counseling completed Goal Sigmoidoscopy. Due on due Goal Influenza vaccine. Due on due Goal Td vaccine. Due on due Goal Tdap. Due on due Goal Zoster vaccine. Due on due Goal FOBT. Due on due Goal Lipid panel. Due on due Goal Pap/HPV testing. Due on due Goal Depression screening. Due on due Goal Tobacco cessation counseling completed Goal Special diet education compl eted Goal Sigmoidoscopy. Due on due Goal Influenza vaccine. Due on Ma due Goal Td vaccine. Due on 19 due Goal Tdap. Due on due Goal Zoster vaccine. Due on due Goal FOBT. Due on due Goal Lipid panel. Due on due Goal Pap/HPV testing. Due on due Goal Depression screening. Due on due Goal Special diet education compl eted Goal Tobacco cessation counseling completed Goal Sigmoidoscopy. Due on due Goal Influenza vaccine. Due on Oc [id number] due Goal Td vaccine. Due on 18 due Goal Tdap. Due on due Goal FOBT. Due on due Goal Lipid panel. Due on due Goal Pap/HPV testing. Due on due Goal Depression screening. Due on due Goal Sigmoidoscopy. Due on due Goal Influenza vaccine. Due on Ap due Goal Td vaccine. Due on 18 due Goal Tdap. Due on due Goal FOBT. Due on due Goal Lipid panel. Due on due Goal Pap/HPV testing. Due on due Goal Depression screening. Due on due Goal Special diet education compl eted Goal Sigmoidoscopy. Due on due Goal Influenza vaccine. Due on due Goal Td vaccine. Due on 18 due Goal Tdap. Due on due Goal FOBT. Due on due Goal Pap/HPV testing. Due on due Goal Depression screening. Due on due Goal Sigmoidoscopy. Due on due Goal Influenza vaccine. Due on due Goal Td vaccine. Due on 17 due Goal Tdap. Due on due Goal FOBT. Due on due Goal Pap/HPV testing. Due on due Goal Depression screening. Due on due Goal Sigmoidoscopy. Due on due Goal Influenza vaccine. Due on due Goal Td vaccine. Due on 17 due Goal Tdap. Due on due Goal FOBT. Due on due Goal Pap/HPV testing. Due on due Goal Depression screening. Due on due Goal Sigmoidoscopy. Due on due Goal Influenza vaccine. Due on due Goal Td vaccine. Due on 17 due Goal Tdap. Due on due Goal FOBT. Due on due Goal Pap/HPV testing. Due on due Goal Depression screening. Due on due Goal Sigmoidoscopy. Due on due Goal Influenza vaccine. Due on due Goal Td vaccine. Due on 17 due Goal Tdap. Due on due Goal FOBT. Due on due Goal Pap/HPV testing. Due on due Goal Depression screening. Due on due Goal Sigmoidoscopy. Due on due Goal Influenza vaccine. Due on due Goal Td vaccine. Due on 16 due Goal Tdap. Due on due Goal FOBT. Due on due Goal Pap/HPV testing. Due on due Goal Depression screening. Due on due Goal Sigmoidoscopy. Due on due Goal Influenza vaccine. Due on due Goal Td vaccine. Due on 16 due Goal Tdap. Due on due Goal FOBT. Due on due Goal Pap/HPV testing. Due on due Goal Depression screening. Due on due Goal Sigmoidoscopy. Due on due Goal Influenza vaccine. Due on due Goal Td vaccine. Due on 16 due Goal Tdap. Due on due Goal FOBT. Due on due Goal Pap/HPV testing. Due on due Goal Depression screening. Due on due Goal Sigmoidoscopy. Due on due Goal Influenza vaccine. Due on due Goal Td vaccine. Due on 16 due Goal Tdap. Due on due Goal FOBT. Due on due Goal Pap/HPV testing. Due on due Goal Depression screening. Due on due Goal Sigmoidoscopy. Due on due Goal Influenza vaccine. Due on due Goal Td vaccine. Due on 15 due Goal Tdap. Due on due Goal FOBT. Due on due Goal Pap/HPV testing. Due on due Goal Depression screening. Due on due Goal Tobacco cessation counseling completed Goal Tobacco cessation counseling completed Goal Tobacco cessation counseling completed Goal Tobacco cessation counseling completed Referral Ordered: Physical Therapy (related to Encounter for general adult medical examination without abnormal findings) ordered Referral Ordered: HIP XRAY AP/LAT ordered Referral Referred To: Physical Therapy Ordered: Referrals: Physical Therapy. Evaluate and treat ordered Referral Ordered: OPERATIVE UPPER GI ENDOSCOPY ordered Referral Ordered: OLIVIA CASTILLO -[facility] Medicine [facility] Service Providers : Rat Poisoner (related to Pain in foot) ordered Referral Referred To: OLIVIA CASTILLO [facility],[address] [place], [place], [id number] Ordered: Referrals: Podiatric Medicine & Surgery Service Providers : Rat Poisoner. OLIVIA CASTILLO. Evaluate and treat ordered Referral Ordered: FINGER XRAY Bilateral ordered Referral Ordered: Donta Desai MD (related to Nonrheumatic mitral valve regurgitation) ordered Referral Ordered: SLEEP STUDY, ATTENDED ordered Referral Referred To: Donta Desai MD [facility] [place], [place], [phone] Ordered: Referrals: Donta Desai MD. Evaluate and treat ordered Referral Ordered: DOPPLER ECHO EXAM, HEART ordered Referral Ordered: LUMBAR XRAY AP AND LAT ONLY ordered Referral Ordered: Otolaryngology (related to Pain in throat) ordered Referral Ordered: Referrals: Otolaryngology. Evaluate and treat ordered Referral Ordered: FOOT XRAY, TWO VIEW Bilateral ordered Referral Ordered: CT THORAX W/O & W/DYE ordered Referral Ordered: COLONOSCOPY AND BIOPSY ordered Referral Ordered: Endocrinology ordered Referral Ordered: Referral: Endocrinology. ordered Referral Ordered: Endocrinology (related to Unspecified disorder of thyroid) ordered Referral Ordered: DXA BONE DENSITY, AXIAL ordered Referral Ordered: Referral: Endocrinology. Evaluate and treat. ordered Referral Ordered: US THYROID ordered Referral Ordered: MAMMOGRAM, SCREENING ordered History Of Present Illness Encounter Date Complaint History Of Prese nt Illness physical Pt needs annual physical Pt has HTN Pt takes hctz and losartan and atenolol and doing ok. Pt sees cardiology. Pt has low back pain Pt takes flexeril PRN. Pt has chronic anxiety Pt takes ativan PRn and doing ok Pt has hypothyroidism Pt takes synthroid Pt has chronic GERD pt is on omeprazole. Pt c/o left hip pain for 2-3 months Pt denies any injury Pt denies any sciatica. Pt notices sharp pain, especially with movement chronic pain1 pt has chronic n shannon and back pain Pt denies any sciatica Pt has some leg cramp pt takes flexeril but her insurance requires a PA for the flexeril . thyroid1 pt has hypothyro idism. pt takes synthroid and she denies any dysphagia or neck pain . anxiety1 Pt has chronic a nxiety Pt takes ativan PRn and doing ok Pt denies any depression or any suicidal or homicidal thought .Pt denies any crying spells HTN Pt has HTN Pt ta kes hctz, atenolol and losartan and her bp is ok Pt sees cardiology Pt denies any chest pain anxiety1 pt has chronic a nxiety Pt takes ativan 1-2 per day PRN for. Pt still has plenty of ativan left back pain1 Pt has chronic l ow back and neck pain Pt denies any loss of bowel or bladder control or saddle area paresthesia Pt denies worsening pain. pt is on flexeril PRN for pain and doing ok vitamin D Pt needs vitamin D refilled Pt takes calcium and she is working on weight bearing exercise. thyroid Pt has hypothyro idism. Pt takes synthroid 88 mcg and she feels more energy and less appetite and overall better .her tsh is ok Pt denies any dysphagia or neck pain anxiety1 Pt has chronic a nxiety Pt denies any depression or any suicidal or homicidal thought Pt denies any crying spells Pt takes ativan PRn and doing ok Pt needs ativan refilled glucose1 Pt has borderlin e high glucose Pt denies any polyuria, polydipsia. HLP Pt has mild HLP. thyroid Pt has hypothyro idism. Pt takes synthroid but is slightly under replaced. Pt denies any weight gain or fatigue physical Pt needs annual physical. pt has HTN Pt takes atenolol and losartan and hctz and her bp is stable Pt has hypothyroidism Pt takes synthroid. Pt has back pain P takes flexeril and doing ok Pt has chronic GERD Pt had EGD which did not show any varner. Pt does have HH Pt is on 40 mg omeprazole now by GI Pt denies any GI issue. pt has mild anxiety Pt takes ativan PRn Pt denies any depression or any suicidal or homicidal thought Pt denies any crying spells HTN Pt has HTn, and dependent LE edema Pt takes hctz and she is doing ok thyroid1 Pt has history o f grave disease pt is seeing endo Pt is on synthroid 75 mcg dally Pt had lab done recently and TSH and T4 ok Pt denies any dysphagia or neck pain anxiety1 Pt has chronic a nxiety with mild depression Pt denies any suicidal or homicidal thought .Pt denies any crying spells Pt doing ok with ativan PRN back pani1 Pt has mild DDD around L spine and she has intermittent low back pain Pt denies any loss of bowel or bladder control or saddle area paresthesia. Pt takes flexeril PRn and doing ok Pt denies worsening back pain. chest pain1 Pt recently went to ER for midsternal chest pain Pt was checked out in ER and she followed up with cardiology several weeks ago and she was cleared by cardiology. Pt denies any recurrent chest pain. Pt states that she has intermittent midsternal chest jacquelin on and off for long time but only occurs very rarely Pt denies any exertional chest pain Pt does have GERD and she started to take omeprazole recently and she has been doing ok. HTN Pt has HTN. Pt t akes atenolol, losartan and she run out of hctz a while back and her bp is borderline high. Pt has mild dependent lower extremity edema, which resolved with hctz. Pt denies any chest pain or sob. Pt notices recurrent mild LE edema without hctz back pain1 Pt has mild DDD around L spine and she has intermittent low back pain Pt denies any loss of bowel or bladder control or saddle area paresthesia. Pt takes flexeril PRn and doing ok Pt denies worsening back pain. anxiety1 Pt has chronic a nxiety with mild depression Pt denies any suicidal or homicidal thought .Pt denies any crying spells Pt doing ok with ativan PRN grave disease1 Pt has grave dis ease. Pt denies any dysphagia or neck pain Pt takes synthroid per endo. Pt had TSH done which was normal physical Pt needs annual physical. Pt has grave disease with low thyroid Pt recently had lab done at endo and thyroid was low and she is on 75 mcg now for the past 3 months. Pt denies any dysphagia or neck pain Pt has HTn Pt takes atenolol and losartan .She has benign murmur Pt sees cardiology Pt denies any chest pain or sob. pt has chronic anxiety Pt denies any depression or any suicidal or homicidal thought. Pt denies any crying spells Pt has been gaining weight which is very upsetting for her. Pt c/o chronic bilateral leg cramps, especially at night. Pt denies any leg pain during the day or any recent travel or bedrest. Pt denies any sob or chest pain. Pt states that bilateral leg cramp only occurs at night Pt denies any paresthesia or any restless leg symptoms. Pt has chronic low back pain due to DDD. Pt denies any sciatica or any loss of bowel or bladder control or any saddle area paresthesia anxiety1 Pt has chronic a nxiety Pt denies any depression or any suicidal thought Pt denies any crying spells. Pt takes ativan PRn and doing ok back pain1 Pt has chronic l ow back pain. Pt denies any sciatica or any loss of bladder or bowel control. Pt doing ok with flexeril HTN Pt has HTN Pt ta kes losartan and atenolol. Her BP is borderline high. Pt denies any chest pain or sob or headache .Pt sees cardiology thyroid Pt has hypothyro idism. Pt takes 50 mcg synthroid. Pt denies any dysphagia or neck pain anxiety1 pt has chronic m ild anxiety Pt denies any depression or any suicidal thought Pt denies any crying spells Pt takes ativan PRn and doing ok. GERD Pt has very mild GERD sometimes. Pt had EGD several years ago which did not show varner but her GI told her she has varner. Pt was told by GI to repeat EGD but she deferred. Pt states that she rarely has any GERD and she is diet controlled now glucose1 Pt had lab done recently and showed borderline high glucose Pt denies any polyuria, polydipsia COVID1 Pt states that s he is fully recovered from COVID-19 now Pt denies any fever, myalgia, cough, sob, Pt is back to work COVID pt started to greer ve headache, sore throat, myalgia since 07/01/20 along with loss of taste and smell and she was tested positive for COVID-19 on 07/06/20. Pt overall feels malaise. Pt states that her muscle pain is very severe Pt has only mild dry cough without any sob. Pt denies any fever. Pt state that she tried tylenol and ibuprofen and none helped. Pt is also taking flexeril but not helping either . Pt states that she can not sleep due to muscle pain. Pt states that she has not felt any better except that her sore throat is gone. 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 UTI1 Pt has recurrent UTi symptoms for the past 9 months. Pt states that she had another UTI since last week. Pt c/o dysuria, urinary urgency and she feels that her bladder is very low position, Pt is on cipro now. [facility] and had positive UA and it was sent to culture Pt feels better now Pt denies any flank pain or fever or chill hypothyroidism1 Pt sees endo and she is on synthroid now and her tsh is ok and she has not done thyroid ultrasound yet. PT denies any dysphagia or neck pain anxiety1 Pt has chronic a nxiety, Pt denies any depression or any suicidal thought Pt denies any crying spells. Pt takes ativan PRN and doing ok. Pt needs refill back pain1 Pt has chronic l ow back pain due to DDD Pt has mild sciatica and leg numbness, Pt denies any loss of bladder control. Pt takes flexeril PRn and doing ok low D Pt has low D Pt is on vitamin D supplement. Pt denies any fx gluose1 Pt has normal gl ucose and A1c Pt denies any polyuria, polydipsia grave disease1 Pt has grave dis ease. Pt sees endo. Pt denies any dysphagia, neck pain Pt still has not done thyroid ultrasound yet. Pt has a standing order for TSH by her endo and she had it done which showed TSH around 25. Pt told me other numbers are ok but she is not sure what else was checked. Pt has not called her endo yet. Pt states that she feels fatigue, cloudy brained feeling. Pt denies any edema. pt feels hungry all the time. Pt has increased appetite hyperglycemia1 Pt had lab done which showed hyperglycemia. Pt denies any polyuria, polydipsia. Pt states that she was on steroid when she did the lab. Pt since has been checking her BG and she states that it is around 100. gout1 Pt has ? gout ri ght big toe .Pt did see podiatry and she was told that it did look like gout Pt received a injection to the joint and the pain resolved. Her uric acid is ok ,Pt denies any further symptoms. physical Pt needs annual physical pt has grave disease Pt is off methimazole Pt is being monitored by endo for periodical TSH. Pt denies any chest pain. her recent TSH is ok, Pt also sees cardiology Pt denies any chest pain or palpitation. Pt c/o right big toe pain for 6 weeks. pt notices redness and warmth and pain Pt has not seen any doctor for that Pt denies any fever or injury Pt has anxiety and insomnia. Pt takes ativan PRn an doing ok Pt denies any other complaints weight loss1 Pt lost 30 pound s during last 5 years Pt denies any intentional weight loss pt denies any appetite, loss, nausea, vomiting, early satiety, diarrhea or abd pain or blood in stool thyroid pt has not done thyroid ultrasound yet. pt has daiana soon her TSh was ok recently Pt has daiana with endo next week. Pt denies any chest pain or headache cardiac murmur Pt has benign ca rdiac murmur Pt denies any chest pain or palpation Pt sess cardiology pt has daiana next month anxiety1 Pt has chronic m ild anxiety Pt denies any depression or any suicidal thought Pt denies any crying spells. Pt takes ativan PRn and doing ok skin Pt notices nonte nder small nodule right anterior chest area for one month but getting smaller. Pt denies any redness, warmth, or drainage. Pt denies any other lymph thyroid1 Pt has grave dis ease Pt has been off methimazole for several years Pt denies any dysphagia Pt does see endo yearly. Pt states that she feel slightly more fatigue recently. Pt denies any weight gain. Her thyroid level is slightly low on lab work low D Pt has low D. Pt does take calcium and vitamin D supplement tobacco1 Pt restarted smo franko recently. Pt denies any hemoptysis, sob or cough. Pt smokes less than 10 cig per day sleep apnea1 Pt has mild slee p apnea but she could not tolerate CPAP hand pain1 Pt has bilateral hand pain and middle finger stiffness and pain. Pt has arthritis both hand. Pt had left index finger surgery due to avulsion fracture in the past. Pt notices left finger tip turning blue sometimes during the winter time Pt denies any numbness or tingling. Pt denies any acute symptoms anxiety1 Pt has anxiety P t denies any depression or any suicidal thought. Pt denies any crying spells HTN Pt has HTN. Pt t akes atenolol and losartan and her BP is stable. foot pain1 Pt c/o pain both feet for several months Pt denies any injury Pt denies any tingling or burning. Pt does have flat arch pt denies any heel pain. Pt denies any calf pain, pt denies any claudication. pt denies any sciatica PHysical Patient needs an nual physical patient had intermittent low back pain due to degenerative disc disease. Patient has mild sciatica but no leg numbness. Patient denies any loss of bowel bladder control. Patient has hypertension patient takes atenolol and losartan and her BP is stable. Patient denies any chest pain or headache. Patient has chronic anxiety without depression. Patient takes Ativan as needed. Patient denies any suicidal homicidal thoughts. He denies any crying spells. 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 Patient also has a benign flow murmur which she is seen the reception specialist and she was cleared. Patient denies any exertional chest pain or shortness of breath. sleep apnea1 Pt has mild slee p apnea. Pt went back for CPAP but she could not tolerate the mask. Pt left in the middle of the sleep study. murmur1 Pt has cardiac m urmur and she has aortic regurgitation. Pt is seeing cardiology. Pt has follow up appointment. Cardiology is waiting for the CD of the echo HTN Pt has HTn. Pt t akes atenolol and losartan and her BP is borderline today. Pt denies any chest pain or headache hand pain1 Pt c/o bilateral finger joint pain for 6 months. Pt denies any hand pain. Pt denies any numbness or weakness. pt just feels finger joint pain. Pt denies any cyanosis. or discoloration. murmur1 Pt has cardiac m urmur. Pt states that she has mild sob but not very frequent. Pt denies any chset pain. Pt states that her sob sometimes is exertional related. Pt had cardiac echo done which showed aortic regu, diastolic dysfunction and clemente regur and mild pulmonary HTN. pulmonary HTN pt has pulmonary HTn Pt states that she does snore and she feels tired all day anxiety1 Pt has hronic an xiety. ,Pt denies any depression or any suicidal thought. Pt denie sany cyring spells. Pt states that ativan PRn does help. ,Pt still has a lot of ativan left HTN Pt takes losarta n and atenolol and her BP is still high. Pt denies any chest pain sick Pt c/o feeling s ick since 3 days ago with sore throat left ear pain and muffling hearing, productive coughing and achy and low grade temp. Pt denies any sick contact Pt denies any travel. cardiac murmur Pt has a small s ystolic murmur today on exam. Pt told me somebody told her that long time ago pt denies any chset pain or headache ear cerumen pt has left ceru men and unable to visuzlie left TM HTN Pt has HTn. Pt t akes losartan and atenolol. Pt states that she run out of atenolol recently due to pharamcy issue and she ended up in ER due to HTN and headache. Pt had benign head CT. her BP is ok now with atenolol and losartan. Pt wants to continue atenolol. which helps her with HTn anxiety1 pt has chronic a nxiety. Pt denies any depression or any suicidal thought. Pt denies any crying spells. Pt states that she does not want to try SSRI. Pt tried SSRI in the past which did not work. 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 pt has a lot of social issue and she does appear to be stressed out all the time. Pt is a low risk for abuse. GERD1 Pt has GERd. Pt states that she is diet controlled currenlty and she has been watching her diet and she has not needed to use omeprazole. back pain1 Pt has mild DDD on back xray. pt has intermittent low back pain Pt takes flexeril and doing ok. Pt denies any sciatica or any loss of bladder control. PHysical Pt needs annual physical. Pt has grave disease/ashley. Pt sees endo and her tSH is ok recently per patient. Pt denies any chest pain or headache. Pt is not on methimazole. Pt has chronic GERD and she takes omeprazole and doing ok. Pt denies any abd pain. Pt has HTN. PT tkaes losartan and atenolol now. Pt is off propranolol now per endo. Pt denies any palpitation or chest pain. Pt also has low back pain chronically Pt denies any sciatica Pt denies any loss of bladder control. pt denies any numbness. Pt also notices some midback pain recently which is different than low back pain PT feels pressure and also sharp. Pt denies any back injury back pain1 Pt has chronic l ow back pain. pt denies any worsening pain Pt denies any loss of bowel or bladder control HTN Pt takes propran olol and losartan and her BP is stalbe. hoarseness Additional infor jamie: Resolved per pt and she did not see ENT. GERD1 Pt still not milena e if she has varner or not. Her biopsy failed to show varner but she was told she has varner and she could not get clear answer from GI. Pt states that she has nausea and throwing up without omeprzole throat burning1 Pt c/o throat bu rning and hoarseness for 5 weeks. Pt has GERD and she called her GI about it and she was started on 40 mg omeprazole instead of 20 mg. Pt has been taking omeprazole 40 mg for one week and has not noticed any difference. pt denies any GERD symptmos. Pt c/o sore throat and also red throat Pt denies any dysphagia. Pt denies any drooling HTN Pt has HTN. Pt t akes HTN and propranolol and her BP is ok. Pt denies any chest pain or hedache GERD1 Pt has GERD. Pt had benign EGD and benign colonoscopy. Pt has GERD symptoms without omeprazole. Pt was told she has GERD by GI but biopsy failed to show GERD. pt states that she has GERD symptmos daily without omeprazole back pain1 P sophia julio ow back pain and neck pain. pt takes flexeril PRn which works well. Pt denies any sciatica or any numbness. Pt denies any injury. Pt has a lot of arthritis per pt foot pain1 Pt c/o bilatearl dorsal foot pain and burning feeling for seveal months. Pt denies any injury .Pt c/o symmetric bilateral foot pain. Pt does stand on her feet all day at work. Pt notices mild dorsal foot swelling as well. PHysical Pt needs annual physical. Pt has chronic thyroid disease and she is seeing endo and is being monitored. Pt denie any chest pain, headache or palpitation. Pt takse losatan and propranolol. Pt told me pharmacy told her she is out of above meds. Pt also has chronic low back pain. Pt denies any loss of bowel or bladder control. Pt denies any scaitica. Pt takes flexril PRN and doing ok. Pt also has GERD symptoms and she takes pepcid and doing ok. Pt has appointment foro EGD and colonoscpy in October cough cough1 Pt recently went to urgent care for persitent dry cough for 3 weeks. pt had xray done which showed some atelactasis and also some scarring. Pt was told by provide that she needs to see pulmonary physician LUCI to rule out any malignancy. Pt states that she was treated with Zpak and steroid and feels much better now. Pt denies any chest pain or any SOB or any fever Weight loss Additional infor mation: Pt has been losing weight and has GERD symptoms. Pt is on pepcid now and working ok. Pt denies any abd pain or any GI bleeding. No nausea, vomiting. HTN1 Pt takes losarta n and propranolol for HTN. Her BP is borderline today. Pt denies any chest pain or headache grave Pt has grave dis ease. Pt sees endocrinology. Pt is not on any meds for grave disease. Pt is being monitored. back pain1 Pt has chronic l ow back pain. Pt c/o left sciatica without numbness. Pt has chronic degeneragive disease Pt has been taking ibuprofen PRN for pain which working ok palpitation1 Pt has intremitt ent palptiation. Pt denies any chest pain or headache. Pt takes propranolol and doing ok GERD1 Pt has chronic G ERD. Pt is off omeprazole now due to insurance Pt tried pepcid and zantac but did not work. Pt states that she feels nausea with food. Pt has frequent vomiting. pt has been losing weight. Pt denies any blood in stool. Pt notices mild abd pain with food Instructions Date Instruction Additional Infor jamie Special diet education Related t o Body mass index (BMI) 29.0-29.9, adult Quit smoking Related to Hypot hyroidism Weight management Related to Hyp othyroidism Quit smoking Related to Hypot hyroidism Increase physical activity Relat ed to Hypothyroidism Special diet education Related t o Body mass index (BMI) 30.0-30.9, adult Follow a low sodium diet. Relate d to Essential (primary) hypertension Increase activity. Related to Es sential (primary) hypertension Special diet education Related t o Body mass index (BMI) 30.0-30.9, adult Increase activity. Related to Es sential (primary) hypertension Follow a low sodium diet. Relate d to Essential (primary) hypertension Increase activity. Related to Es sential (primary) hypertension Follow a low sodium diet. Relate d to Essential (primary) hypertension Special diet education Related t o Body mass index (BMI) 31.0-31.9, adult Prescribed Activity and Exercise Education Related to Dietary Surveillance and Counseling Prescribed Diet Educ ation/Lifestyle Education Regarding Diet Related to Dietary Surveillance and Counseling Increase activity. Related to Pr imary pulmonary hypertension Follow a low sodium diet. Relate d to Primary pulmonary hypertension Prescribed Activity and Exercise Education Related to Dietary Surveillance and Counseling Prescribed Diet Educ ation/Lifestyle Education Regarding Diet Related to Dietary Surveillance and Counseling Prescribed Activity and Exercise Education Related to Dietary Surveillance and Counseling Prescribed Diet Educ ation/Lifestyle Education Regarding Diet Related to Dietary Surveillance and Counseling Increase activity. Related to Es sential (primary) hypertension Follow a low sodium diet. Relate d to Essential (primary) hypertension Prescribed Activity and Exercise Education Related to Dietary Surveillance and Counseling Prescribed Diet Educ ation/Lifestyle Education Regarding Diet Related to Dietary Surveillance and Counseling Eat smaller meals, n o eating three hours prior to bedtime Related to GERD without esophagitis Elevate head of bed prior to sle ep Related to GERD without esophagitis Avoid provocative fo ods: citrus, alcohol, coffee, chocolate, mints Related to GERD without esophagitis Prescribed Activity and Exercise Education Related to Dietary Surveillance and Counseling Prescribed Diet Educ ation/Lifestyle Education Regarding Diet Related to Dietary Surveillance and Counseling Avoid provocative fo ods: citrus, alcohol, coffee, chocolate, mints Related to GERD without esophagitis Eat smaller meals, n o eating three hours prior to bedtime Related to GERD without esophagitis Elevate head of bed prior to sle ep Related to GERD without esophagitis Prescribed Activity and Exercise Education Related to Dietary Surveillance and Counseling Prescribed Diet Educ ation/Lifestyle Education Regarding Diet Related to Dietary Surveillance and Counseling Physical activity counseling Rel ated to Dietary surveillance counseling Decrease caloric intake Related to Dietary surveillance counseling Dietary counseling Related to Di etary surveillance counseling Decrease caloric intake Related to Dietary surveillance counseling Dietary counseling Related to Di etary surveillance counseling Decrease caloric intake Related to Dietary surveillance counseling Dietary counseling Related to Di etary surveillance counseling Decrease caloric intake Related to Dietary surveillance counseling Dietary counseling Related to Di etary surveillance counseling Decrease caloric intake Related to Dietary surveillance counseling Assessments Type Assessment Date assessment Encounter for genera l adult medical examination without abnormal findings Mental Status Date Cognitive Assessment Orientation - [place] ed to time, place, person, situation.
--- OUTSIDE RECORDS SUMMARY | 2024-08-18 14:27 | XMS_ITS | Referral Summary ---
Author Organization [facility] Address [address] [place] [address] Care Team Providers Care Electrical Engineering Draftsperson Name Role Phone Yonis Pinzon MD Primary Care Provider [phone] Suleiman Mo MD Unavailable [phone] Enrike Acevedo MD Unavailable [phone] Source Comments [facility],non-owned Affiliates and Associated Physician Practices is amultiple site organization consisting of ambulatory clinics and hospital sitesin [place], [place], [place] and [place]. This disclosure is being madepursuant to the Care Everywhere program and may not contain all information available regarding this patient. 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 Gender Identity Female 06/07/2022 12:30 PM TOOL STORAGE ATTENDANT Sexual Orientation Straight 06/07/2022 12 :30 PM TOOL STORAGE ATTENDANT Last Filed Vital Signs Vital Sign Reading Time Taken Comments Blood Pressure 119/70 02/27/2024 11:38 AM CDT Pulse 56 02/27/2024 11:38 AM CDT Temperature 36.8 C (98.2 F) 06/09/2022 1:36 PM TOOL STORAGE ATTENDANT Respiratory Rate 12 11/16/2016 12:42 PM CDT [...] [facility] - Echosonography [address] [facility], [address] [phone] 02/18/2025 11:00 AM CDT Office Visit [facility] - Cardiology [address] [facility], [place] [place] [phone] Kady Roman, [address] [facility] [address] [place] [id number] Procedures Procedure Name Priority Date/Time Associated Diagnosis [...] approximately 13% higher for people identified as -Israeli. eGFR by MDRD 89 > OR = [...] 10.4 mg/dL [facility] Comment: Test Performed at: [facility] [place] [id number] HARDKI WALKER DO,MPH 11/13/2017 8:10 AM CDT 11/13/2017 8:11 AM CDT Sumanth Duong MD LAB - CHEMISTRY [address] [facility] [address] [place] [address] * LIPID PROFILE W LDL/HDL RATIO (10/30/2015 9:06 AM CDT) Cholesterol Total 168 125 - 200 mg/dL [facility] ([facility]) Comment: Test Performed at: [facility] [employer] [id number] HARDIK WALKER DO,MPH HDL 65 > OR = 46 mg/dL [facility] ([facility]) Triglycerides 72 <150 mg/dL [facility] ([facility]) LDL Calculated 89 <130 mg/dL (calc) [facility] ([facility]) Comment: Desirable range <100 mg/dL for patients with CHD or diabetes and <70 mg/dL for diabetic patients with known heart disease. Chol/HDL Ratio 2.6 < OR = 5.0 (calc) [facility] ([facility]) LDl/HDL Ratio 1.4 (calc) [facility] ([facility]) Comment: Below average Risk: <2.34 Average Risk: 2.35-4.12 Moderate Risk: 4.13-5.56 High Risk: >5.57 Non HDL Cholesterol 103 mg/dL (calc) [facility] ([facility]) Comment: Target for non-HDL cholesterol is 30 mg/dL higher than LDL cholesterol target. 10/30/2015 9:06 AM CDT 10/30/2015 9:07 AM CDT Yonis Pinzon MD LAB - CHEMISTRY [address] Organization Address City/State/ZIP Co de Phone Number [facility] ([facility]) from Last 3 Months or Most Recently Relevant to Health Maintenance Care Teams Electrical Engineering Draftsperson Relationship Specialty Start Date End Date Yonis Pinzon MD [address] [place] [id number] PCP - General 09/17/14 Suleiman Mo MD [address] [place] [address] Endocrinology 02/27/24 Enrike Acevedo MD [address] [place] [address] Hospitalist 02/27/24
== END 2024-08-18 12:01 | disposition home or self-care (01) ==
PROVIDERS: PCP Emergency Medicine; Visit Provider Emergency Medicine
DX: M25.552 Pain in left hip (principal)
CPT/HCPCS: 73502

== ENCOUNTER 2024-10-08 15:20 | Emergency (ER) | payer MEDICARE, MEDICAID, SELFPAY ==
--- NOTE | 2024-10-08 15:35 | ED_ITS ---
HPI - URI/Sore Throat General Chief Complaint: Upper Respiratory Infection Stated Complaint: CONGESTION/CHEST BURNING/TIRED Related Data Home Medications ?Medication ?Instructions ?Recorded ?Confirmed ?Last Taken ?Type atenolol 25 mg tablet 25 mg PO DAILY 07/25/19 10/08/24 09/11/22 History cyclobenzaprine 10 mg tablet 10 mg PO TID PRN Pain 07/25/19 10/08/24 09/11/22 History lorazepam 0.5 mg tablet 0.5 mg PO BID PRN Anxiety 07/25/19 10/08/24 09/11/22 History losartan 100 mg tablet 150 mg PO BID 07/25/19 10/08/24 09/11/22 History levothyroxine 75 mcg tablet 75 mcg PO DAILY 03/29/22 10/08/24 09/11/22 History ergocalciferol (vitamin D2) 1,250 1,250 mcg PO DIRECTED 06/11/22 10/08/24 09/11/22 History mcg (50,000 unit) capsule hydrochlorothiazide 25 mg tablet 25 mg PO DAILY 06/11/22 10/08/24 09/11/22 History calcium carbonate 600 mg PO BID 10/08/24 10/08/24 Unknown History magnesium 500 mg tablet 100 mg PO QDAY 10/08/24 10/08/24 Unknown History Allergies Allergy/AdvReac Type Severity Reaction Status Date / Time venom-wasp Allergy Swelling Verified 10/08/24 15:28 of Lip/Tongue/Throat codeine AdvReac Unknown NAUSEA Verified 10/08/24 15:28 [facility] Past Medical History Medical History Anxiety Arthritis Finger fracture, right Surgery to left index finger GERD (gastroesophageal reflux disease) Gout Hypertension Thyroid disease Surgical History Surgical History History of cholecystectomy History of eye surgery 07/18/1999-retinal tear left eye History of hysterectomy Family History Family History Father Cancer Mother Lung disease Social History Social History Smoking status: Former smoker Tobacco type: cigarettes Second hand tobacco smoke exposure: No Smoking end date: 06/04/11 Alcohol intake: never Alcohol use details: Occasional Substance use: never Substance use type: does not use Living arrangements: with family Occupation/Education: occupation Gender identity (if verbalized by the patient): Female Spiritual care concerns: No Discharge Plan Discharge Patient Language: Croatian Prescriptions: No Action atenolol 25 mg Tablet 25 mg PO DAILY losartan 100 mg Tablet 150 mg PO BID Rx Instructions: takes only 1/2 tablet at night dose cyclobenzaprine 10 mg Tablet 10 mg PO TID PRN (Reason: Pain) lorazepam 0.5 mg Tablet 0.5 mg PO BID PRN (Reason: Anxiety) hydrochlorothiazide 25 mg tablet 25 mg PO DAILY ergocalciferol (vitamin D2) 1,250 mcg (50,000 unit) capsule 1,250 mcg PO DIRECTED calcium carbonate 600 mg calcium (1,500 mg) tablet 600 mg PO BID magnesium 500 mg tablet 100 mg PO QDAY levothyroxine 75 mcg Tablet 75 mcg PO DAILY omeprazole 40 mg capsule,delayed release(DR/EC) 40 mg PO DAILY Qty: 30 12RF Follow-up/Referrals: Yonis Pinzon MD [Primary Care Provider] -
[2024-10-08 15:40] VITALS: BP 116/68; PULSE 70; RESP 16; TEMP 36.4; O2SAT 97
[2024-10-08 16:12] LABS: EDCOVIDSCREEN Negative (Negative); EDINFLUASCREEN Negative (Negative); EDINFLUBSCREEN Negative (Negative)
--- NOTE | 2024-10-08 16:28 | ED.URI ---
HPI - URI/Sore Throat General Chief Complaint: Upper Respiratory Infection Stated Complaint: CONGESTION/CHEST BURNING/TIRED Source: patient and RN notes reviewed Mode of arrival: ambulatory Limitations: no limitations History of Present Illness HPI Narrative: 64 y/o female presented for c/o nasal congestion, hoarse voice, cough, and fatigue. Onset yesterday. Taking Sudafed and mucinex. Denies sob, wheezing, n/v/d/f/c. MD elicited complaint: cough Related Data Home Medications ?Medication ?Instructions ?Recorded ?Confirmed ?Last Taken ?Type atenolol 25 mg tablet 25 mg PO DAILY 07/25/19 10/08/24 09/11/22 History cyclobenzaprine 10 mg tablet 10 mg PO TID PRN Pain 07/25/19 10/08/24 09/11/22 History lorazepam 0.5 mg tablet 0.5 mg PO BID PRN Anxiety 07/25/19 10/08/24 09/11/22 History losartan 100 mg tablet 150 mg PO BID 07/25/19 10/08/24 09/11/22 History levothyroxine 75 mcg tablet 75 mcg PO DAILY 03/29/22 10/08/24 09/11/22 History ergocalciferol (vitamin D2) 1,250 1,250 mcg PO DIRECTED 06/11/22 10/08/24 09/11/22 History mcg (50,000 unit) capsule hydrochlorothiazide 25 mg tablet 25 mg PO DAILY 06/11/22 10/08/24 09/11/22 History calcium carbonate 600 mg PO BID 10/08/24 10/08/24 Unknown History magnesium 500 mg tablet 100 mg PO QDAY 10/08/24 10/08/24 Unknown History Allergies Allergy/AdvReac Type Severity Reaction Status Date / Time venom-wasp Allergy Swelling Verified 10/08/24 15:28 of Lip/Tongue/Throat codeine AdvReac Unknown NAUSEA Verified 10/08/24 15:28 Review of Systems Review of Systems: per HPI [facility] Past Medical History Medical History Anxiety Arthritis Finger fracture, right Surgery to left index finger GERD (gastroesophageal reflux disease) Gout Hypertension Thyroid disease Surgical History Surgical History History of cholecystectomy History of eye surgery 07/18/1999-retinal tear left eye History of hysterectomy Family History Family History Father Cancer Mother Lung disease Social History Social History Smoking status: Former smoker Tobacco type: cigarettes Second hand tobacco smoke exposure: No Smoking end date: 06/04/11 Alcohol intake: never Alcohol use details: Occasional Substance use: never Substance use type: does not use Living arrangements: with family Occupation/Education: occupation Gender identity (if verbalized by the patient): Female Spiritual care concerns: No Exam Narrative: GENERAL: mildly Ill-appearing, nontoxic no acute distress. EYES: conjunctivae clear ENT: Mucous membranes moist. nasal congestion and hoarse voice. TM pearly amaro with dull light reflex bilaterally; no tragal tenderness. Oropharynx erythematous without lesions or exudate, no drooling, no hoarseness, no trismus, uvula midline. No tripod positioning, muffled voice, soft palate or pharyngeal wall bulging NECK: Supple. No lymphadenopathy CHEST: Clear to auscultation, breath sounds equal. No wheezing, rhonchi, rales, or stridor. No respiratory distress, speaks in full sentences. HEART: Regular rate and rhythm. SKIN: Warm, dry, no rash. NEURO: Alert and oriented x3. PSYCH: Normal mood and affect Course Course Emergency Course: Patient is aware of diagnosis, understands and agrees to treatment plan. Anticipatory guidance given. Patient agrees to follow-up as directed and is aware of reasons to seek care at the emergency department. Portions of this record may have been created with voice recognition software Level of Care: Express Care Visit Vital Signs Vital signs: Vital Signs Temperature 97.6 F 10/08/24 15:40 Pulse Rate 70 10/08/24 15:40 Respiratory Rate 16 10/08/24 15:40 Blood Pressure 116/68 10/08/24 15:40 Pulse Oximetry 97 10/08/24 15:40 Temperature 97.6 F 10/08/24 15:40 Pulse Rate 70 10/08/24 15:40 Respiratory Rate 16 10/08/24 15:40 Blood Pressure 116/68 10/08/24 15:40 Pulse Oximetry 97 10/08/24 15:40 reviewed MDM - URI/Sore Throat MDM Narrative Medical decision making narrative: Discussed physical exam findings; neg flu and covid. Advised supportive measures and signs/symptoms to go to the ER. Pt is appropriate for outpt treatment and f/u. Differential Diagnosis Differential diagnosis: Likely upper respiratory infection, sinusitis and viral infection Lab Data Labs: Lab Results 10/08/24 Range/Units 16:10 POC Influenza A Ag Negative (Negative) POC Influenza B Ag Negative (Negative) POC SARS CoV-2 Ag Negative (Negative) Discharge Plan Discharge Clinical Impression: Upper respiratory infection Patient Disposition: Home Condition: Stable Instructions: Antibiotic Form, Upper Respiratory Infection (ED) Additional Instructions: Your rapid covid/flu test was negative today. It may be too early to detect the virus, therefore we recommend retesting at home in 1-2 days Continue to follow general precautions: frequent handwashing, wear a mask, isolate/social distance, and avoid crowds if you have a fever. You must be fever free for 24 hours without the use of fever reducing medication (Tylenol/ibuprofen) before returning to work/school/crowds. Recommendations: Flonase spray and Zyrtec (or Claritin/Dianne) over the counter Cough syrup may cause drowsiness; avoid driving or take it at night time. Tylenol 1000mg every 8 hours as needed for pain Symptomatic treatment includes: rest, fluids, and increase humidity of the air at home. Follow up with your primary care provider in 1 week. Go to the ER for worsening symptoms or concerns. Patient Language: Japanese Prescriptions: New prednisone 20 mg tablet 40 mg PO DAILY 5 Days Qty: 10 0RF No Action atenolol 25 mg Tablet 25 mg PO DAILY losartan 100 mg Tablet 150 mg PO BID Rx Instructions: takes only 1/2 tablet at night dose cyclobenzaprine 10 mg Tablet 10 mg PO TID PRN (Reason: Pain) lorazepam 0.5 mg Tablet 0.5 mg PO BID PRN (Reason: Anxiety) hydrochlorothiazide 25 mg tablet 25 mg PO DAILY ergocalciferol (vitamin D2) 1,250 mcg (50,000 unit) capsule 1,250 mcg PO DIRECTED calcium carbonate 600 mg calcium (1,500 mg) tablet 600 mg PO BID magnesium 500 mg tablet 100 mg PO QDAY levothyroxine 75 mcg Tablet 75 mcg PO DAILY omeprazole 40 mg capsule,delayed release(DR/EC) 40 mg PO DAILY Qty: 30 12RF Follow-up/Referrals: Yonis Pinzon MD [Primary Care Provider] - Time of Disposition: 16:34
== END 2024-10-08 16:38 | disposition home or self-care (01) ==
PROVIDERS: PCP Emergency Medicine
DX: J06.9 Acute upper respiratory infection, unspecified (principal); Z20.822 Contact with and (suspected) exposure to COVID-19; Z87.891 Personal history of nicotine dependence; M19.90 Unspecified osteoarthritis, unspecified site; I10 Essential (primary) hypertension; K21.9 Gastro-esophageal reflux disease without esophagitis; F41.9 Anxiety disorder, unspecified; M10.9 Gout, unspecified; E07.9 Disorder of thyroid, unspecified
CPT/HCPCS: 87426; 87804; 99213; G0463

== ENCOUNTER 2024-10-12 11:06 | Emergency (ER) | payer MEDICARE, MEDICAID, SELFPAY ==
--- NOTE | 2024-10-12 11:07 | ED.URI ---
HPI - URI/Sore Throat General Chief Complaint: Upper Respiratory Infection Stated Complaint: Head Congestion Time Seen by Provider: 10/12/24 11:06 Source: patient Mode of arrival: ambulatory Limitations: no limitations History of Present Illness HPI Narrative: Ruth is a 64-year-old female patient presenting to the clinic today with complaints of sinus pressure and congestion and a cough. She reports symptoms started 9 days ago. She is coughing up green nasal drainage and blowing out green nasal drainage. States she has a sinus headache. Also reporting some nausea, vomiting, and diarrhea. Thinks that is due to the drainage. Patient was seen on Sunday and prescribed steroids however she has not taken them. She states they make her crazy Related Data Home Medications ?Medication ?Instructions ?Recorded ?Confirmed ?Last Taken ?Type atenolol 25 mg tablet 25 mg PO DAILY 07/25/19 10/08/24 09/11/22 History cyclobenzaprine 10 mg tablet 10 mg PO TID PRN Pain 07/25/19 10/08/24 09/11/22 History lorazepam 0.5 mg tablet 0.5 mg PO BID PRN Anxiety 07/25/19 10/08/24 09/11/22 History losartan 100 mg tablet 150 mg PO BID 07/25/19 10/08/24 09/11/22 History levothyroxine 75 mcg tablet 75 mcg PO DAILY 03/29/22 10/08/24 09/11/22 History ergocalciferol (vitamin D2) 1,250 1,250 mcg PO DIRECTED 06/11/22 10/08/24 09/11/22 History mcg (50,000 unit) capsule hydrochlorothiazide 25 mg tablet 25 mg PO DAILY 06/11/22 10/08/24 09/11/22 History calcium carbonate 600 mg PO BID 10/08/24 10/08/24 Unknown History magnesium 500 mg tablet 100 mg PO QDAY 10/08/24 10/08/24 Unknown History Allergies Allergy/AdvReac Type Severity Reaction Status Date / Time venom-wasp Allergy Swelling Verified 10/12/24 11:23 of Lip/Tongue/Throat codeine AdvReac Unknown NAUSEA Verified 10/12/24 11:23 Review of Systems Review of Systems: Pertinent positives per HPI. Patient denies any fever, chills, rash, headache, visual changes, dizziness, cough, shortness of breath, chest pain, palpitations, nausea, vomiting, diarrhea, constipation, abdominal pain, or any urinary issues. [facility] Past Medical History Medical History Anxiety Arthritis Finger fracture, right Surgery to left index finger GERD (gastroesophageal reflux disease) Gout Hypertension Thyroid disease Surgical History Surgical History History of eye surgery 07/18/1999-retinal tear left eye History of cholecystectomy History of hysterectomy Family History Family History Father Cancer Mother Lung disease Social History Social History Smoking status: Former smoker Tobacco type: cigarettes Second hand tobacco smoke exposure: No Smoking end date: 06/04/11 Alcohol intake: never Alcohol use details: Occasional Substance use: never Substance use type: does not use Living arrangements: with family Occupation/Education: occupation Gender identity (if verbalized by the patient): Female Spiritual care concerns: No Comments At the time of my signature, I reviewed and agree with the nursing past medical, surgical, social, and family history. There is no relevant family history pertinent to the patient complaint. Exam Narrative: General: Well-developed, well nourished, in no apparent distress Head: Normocephalic, atraumatic Eyes: Pupils equally round and reactive to light bilaterally, EOM intact, sclera and conjunctive clear, no discharge, lids normal Ears: TMs intact and congested, ear canals clear, no drainage, grossly hearing normal. Nose: Nares patent, green nasal discharge, moderate inflammation, maxillary and frontal sinus tenderness. Mouth: Oral pharynx red without lesions or masses, good dentition, MMM. Postnasal drip Neck: Supple, trachea midline, no enlargement of anterior or posterior cervical nodes, no thyroid masses or goiter palpable. Cardio: Regular rate and rhythm, s1 and s2 normal, no murmur appreciated. Resp: Clear to auscultation bilaterally, no rhonchi, rales, wheezing or rubs Course Course Emergency Course: Portions of this record may have been created with voice recognition software. Level of Care: Express Care Visit Vital Signs Vital signs: Vital signs reviewed MDM - URI/Sore Throat MDM Narrative Medical decision making narrative: At the time of visit patient is resting comfortably on the exam table. Patient appears to be nontoxic. Plan: I suspect patient has acute bacterial rhinosinusitis. Prescription for Augmentin was sent to the pharmacy. Supportive measures were discussed with the patient and they voiced understanding discharge instructions and agrees to treatment plan. Return precautions reviewed Differential Diagnosis Differential diagnosis: Likely upper respiratory infection, otitis media, sinusitis, viral infection, bronchitis, influenza, pharyngitis and other (COVID) Discharge Plan Discharge Clinical Impression: Acute bacterial rhinosinusitis Patient Disposition: Home Condition: Stable Instructions: Antibiotic Form, Rhinosinusitis (ED) Additional Instructions: Take prescription medications only as prescribed-Augmentin and Zofran May take Coricidin HBP for cold/flu symptoms Increase fluids and stay well hydrated Tylenol/motrin for pain/fever Flonase and OTC antihistamines as directed Vicks vapor rub to open sinuses Sinus rinses for congestion Cepacol spray, cough drops, throat lozenges, warm tea with honey/lemon, gargle salt water to soothe throat BRAT diet for diarrhea Clear liquids x 24 hours then advance as tolerated for nausea/vomiting Go to the ED if you develop a worsening in your condition- high fever not controlled by Tylenol or Motrin, dehydration, weakness, lethargy, shortness of breath, or chest pain. Follow up with your PCP in 3-5 days if symptoms persist. Patient Language: Turkish Prescriptions: New amoxicillin-pot clavulanate 875-125 mg tablet 1 tablet PO Q12H 10 Days Qty: 20 0RF ondansetron 4 mg tablet,disintegrating 4 mg PO Q6H PRN (Reason: nausea and vomiting) 3 Days Qty: 12 0RF No Action atenolol 25 mg Tablet 25 mg PO DAILY losartan 100 mg Tablet 150 mg PO BID Rx Instructions: takes only 1/2 tablet at night dose cyclobenzaprine 10 mg Tablet 10 mg PO TID PRN (Reason: Pain) lorazepam 0.5 mg Tablet 0.5 mg PO BID PRN (Reason: Anxiety) hydrochlorothiazide 25 mg tablet 25 mg PO DAILY ergocalciferol (vitamin D2) 1,250 mcg (50,000 unit) capsule 1,250 mcg PO DIRECTED calcium carbonate 600 mg calcium (1,500 mg) tablet 600 mg PO BID magnesium 500 mg tablet 100 mg PO QDAY prednisone 20 mg tablet 40 mg PO DAILY 5 Days Qty: 10 0RF levothyroxine 75 mcg Tablet 75 mcg PO DAILY omeprazole 40 mg capsule,delayed release(DR/EC) 40 mg PO DAILY Qty: 30 12RF Follow-up/Referrals: Yonis Pinzon MD [Primary Care Provider] - Time of Disposition: 11:27 Quality NIHSS Nursing Documentation ED NIHSS nursing documentation: reviewed/agree
[2024-10-12 11:25] VITALS: BP 104/59; PULSE 85; RESP 29; TEMP 36.8; O2SAT 100
== END 2024-10-12 11:36 | disposition home or self-care (01) ==
PROVIDERS: Emergency Provider Nurse Practitioner Family; PCP Emergency Medicine
DX: J01.90 Acute sinusitis, unspecified (principal); I10 Essential (primary) hypertension; M19.90 Unspecified osteoarthritis, unspecified site; K21.9 Gastro-esophageal reflux disease without esophagitis; E07.9 Disorder of thyroid, unspecified; M10.9 Gout, unspecified; F41.9 Anxiety disorder, unspecified
CPT/HCPCS: 99213; G0463

== ENCOUNTER 2024-12-26 14:00 | Outpatient (CLI) | payer MEDICARE, MEDICAID, SELFPAY ==
--- NOTE | ~2024-12-26 | MM_ITS ---
EXAMINATION: MM screening [facility] BI w speedy HISTORY: Screening TECHNIQUE: Craniocaudal and mediolateral oblique 3-D tomosynthesis images were obtained and synthetic 2-D images were generated. CAD analysis was submitted and interpreted. COMPARISON: Comparison to multiple prior studies sequentially, with oldest reviewed study dated 10/29. BREAST PARENCHYMAL COMPOSITION: Not Dense. The breasts are almost entirely fatty. FINDINGS: There is no evidence of suspicious mass, calcification, or architectural distortion to sugg est malignancy in either breast. There has been no suspicious interval change. IMPRESSION: 1. No mammographic evidence of malignancy. 2. Recommend routine screening mammography in one year. BI-RADS Category 1: Negative Reviewed, dictated and finalized at location A.
--- OUTSIDE RECORDS SUMMARY | 2024-12-26 14:07 | XMS_ITS | Patient Health Record ---
Author Organization [facility] Address [address], [place] [id number] Care Team Providers Care Automobile Designer Name Role Phone Elaine IZAGUIRRE Primary Care Provider [phone] DEVIN MCCOY Unavailable [phone] Allergies Allergen (clinical drug ingredient) Drug/Non Drug Allergy documented on EMR Reaction Allergy Type Onset Date Status nka (uncoded) Unknown Allergy Active Reason For Referral No Information Medications Medication SIG (Take, Route, Frequency, Duration) Notes Start Date End Date Status ibuprofen 800 mg 1 tab(s) orally tid for 3 days, than tid prn for 30 day(s) 11/02/2008 Active Singulair 10 mg 1 tab(s) orally QPM for 30 day(s) Active ProAir HFA CFC free 90 mcg/inh 2 puff(s) inhaled Q 4-6 hr prn 10/25/2008 Active Foradil Aerolizer 12 mcg 1 cap(s) inhale d Q12H for 30 day(s) Active Qvar 40 mcg/inh 2 puff(s) inhaled BI D for 30 day(s) Active Z Brendon 500 mg po qd for one day, then 250 mg po qd for 4 more days as directed PO 5 days 11/25/2008 Active nebulizer kit- adult use PRN Q 4hrs PRN for 1 yr 11/25/2008 Active Immunizations Vaccine Route Administration Date Status Comme nts Engerix -B (Hep B) Adult (20+) IM Intramuscular 12/10/2007 Administered Havrix (Hep A) Adult (19+) IM Intramuscular 12/10/2007 Adm inistered Plan Of Treatment No Information Medications Administered Medication Instructions Date of Administration Dosage Notes Gentamicin 80mg (3 units) 08/24/2008 240 mg Lot # [id number] Exp 04/03/2009; 120mg/3ml given in bilat gluteals. Medical (General) History Medical History History ICD Code hepatitis C asthma depression menopause w/o hrt emphysema Surgical History Surgery Date(Month/Year) appendectomy ----INCIDENTAL to #3 tubal ligation-w/ last C section--x3 tonsillectomy Hospitalization History Reason Date(Month/Year) x3 T&A childhood asthma 1989
--- OUTSIDE RECORDS SUMMARY | 2024-12-26 14:07 | XMS_ITS | Continuity of Care Document ---
Author Organization [facility] Address [address] [place] [address] Phone Care Team Providers Care Wholesale Buyer Name Role Phone Yonis Pinzon MD Unavailable Unavailable Allergies, Adverse Reactions, Alerts Substance Reaction Status Criticality No Known Allergies Active No Inform ation Medications Medication Instructions Dosage Effective Dates (start - stop) Status Comments hydrochlorothiazide 25 mg tablet take 1 tablet by oral route every day 25 MG - Active Ativan 0.5 mg tablet take 1 Tablet [...] - Active avoid driving or operate machines Vitamin D2 1,250 mcg (50,000 unit) capsule take 1 capsule by oral route every week - Active omeprazole 40 mg capsule,delayed release take 1 capsule by oral route every day before a meal 40 MG - Active losartan 100 mg tablet take 1 tablet by oral route every day 100 MG - Active atenolol 25 mg tablet take 1 tablet by oral route every day 25 MG - Active Procedures Procedure Date OFFICE/OUTPATIENT VISIT, EST PREV VISIT, EST, 65 & OVER OFFICE/OUTPATIENT [...] Diagnoses Date Provider Providers Copied on Encounter OFFICE/OUTPA TIENT VISIT, EST [facility], [address] [place], [place], [address], [place] tel:[phone] [facility] hip pain1 (chief complaint)HTN (chief complaint)anxie ty1 (chief complaint) Essential (primary) hypertensionGe neralized Anxiety DisorderPain in left hipEncounter for oth screening for malignant neoplasm of breast 5 Jeromy Somers. [address], [place], [place], [address] , [place]. tel:[phone] PREV VISIT, EST, 65 & OVER [facility], [address], [place], [place], [address], [place] tel:[phone] [facility] physical (chief complaint) Encounter for general adult medical examination without abnormal findings Aug- 5 Jeromy Somers. [address], [place], [place], [address] , [place]. tel:[phone] OFFICE/OUTPA TIENT VISIT, [facility], [address], [place], [place], [address], [place] tel:[phone] [facility] chronic pain1 (chief complaint)thyro id1 (chief complaint)anxie ty1 (chief complaint)HTN (chief complaint) Generalized Anxiety DisorderChroni c pain syndromeHypoth yroidismEssent ial (primary) hypertensionGE RD without esophagitisOth er specified disorder of bone density 4 Jeromy Somers. [address], [place], [place], [address] , [place]. tel:[phone] OFFICE/OUTPA TIENT VISIT, [facility], [address], [place], [place], [address], [place] tel:[phone] [facility] anxiety1 (chief complaint)back pain1 (chief complaint)vitam in D (chief complaint) Generalized Anxiety DisorderChroni c pain syndrome Aug- 4 Jeromy Somers. [address], [place], [place], [address] , [place]. tel:[phone] OFFICE/OUTPA TIENT VISIT, [facility], [address], [place], [place], [address], [place] tel:[phone] [facility] thyroid (chief complaint)anxie ty1 (chief complaint) Hypothyroidism Generalized Anxiety Disorder 3 Jeromy Carpio [address], [place], [place], [address] , [place]. tel:[phone] OFFICE/OUTPA TIENT VISIT, EST [facility], [address], [place], [place], [address], [place] tel:[phone] [facility] glucose1 (chief complaint)HLP (chief complaint)thyro id (chief complaint) Mixed hyperlipidemia HyperglycemiaH ypothyroidismI nconclusive mammogram 3 Jeromy Carpio [address], [place], [place], [address] , [place]. tel:[phone] PREV VISIT, EST, AGE 40-64 [facility], [address], [place], [place], [address], [place] tel:[phone] [facility] physical (chief complaint) Encounter for general adult medical examination without abnormal findings 3 Jeromy Carpio [address], [place], [place], [address] , [place]. tel:[phone] OFFICE/OUTPA TIENT VISIT, EST [facility], [address] [place] [place], [address], [place] tel:[phone] [facility] thyroid1 (chief complaint)HTN (chief complaint)anxie ty1 (chief complaint)back pani1 (chief complaint)chest pain1 (chief complaint) Hypothyroidism GERD w/o esophagitisEss ential (primary) hypertensionCh ronic pain syndromeGenera lized Anxiety DisorderChest pain 3 Jeromy Carpio [address], [place], [place], [address] , [place]. tel:[phone] OFFICE/OUTPA TIENT VISIT, EST [facility], [address], [place], [place], [address], [place] tel:[phone] [facility] HTN (chief complaint)back pain1 (chief complaint)anxie ty1 (chief complaint)grave disease1 (chief complaint) Essential (primary) hypertensionGe neralized Anxiety DisorderChroni c pain syndromeHypoth yroidismEdema 2 Jeromy Carpio [address], [place], [place], [address] , [place]. tel:[phone] PREV VISIT, EST, AGE 40-64 [facility], [address], [place], [place], [address], [place] tel:[phone] [facility] physical (chief complaint) Encounter for general adult medical examination without abnormal findings 2 Jeromy Carpio [address], [place], [place], [address] , [place]. tel:[phone] OFFICE/OUTPA TIENT VISIT, [facility], [address], [place], [place], [address], [place] tel:[phone] [facility] anxiety1 (chief complaint)back pain1 (chief complaint)HTN (chief complaint)thyro id1 (chief complaint) Generalized Anxiety DisorderChroni c pain syndromeEssent ial (primary) hypertensionHy pothyroidism 1 Jeromy Carpio [address], [place], [place], [address] , [place]. tel:[phone] OFFICE/OUTPA TIENT VISIT, [facility], [address] [place], [address], [place] tel:[phone] [facility] anxiety1 (chief complaint)GERD1 (chief complaint)gluco se1 (chief complaint)COVID 1 (chief complaint) GERD w/o esophagitisGen eralized Anxiety DisorderHyperg lycemiaViral infectionHypot hyroidism 1 Jeromy Carpio [address], [place], [place], [address] , [place]. tel:[phone] OFFICE/OUTPA TIENT VISIT, [facility], [address] [place], [address], [place] tel:[phone] [facility] COVID (chief complaint) Viral infectionMyalg ia 1 Jeromy Carpio [address], [place], [place], [address] , [place]. [phone] OFFICE/OUTPA TIENT VISIT, [facility], [address] [place], [address], [place] tel:[phone] [facility] COVID (chief complaint) Viral infection 1 Jeromy Carpio [address], [place], [place], [address] , [place]. [phone] OFFICE/OUTPA TIENT VISIT, [facility], [address] [place], [address], [place] tel:[phone] [facility] UTI1 (chief complaint)hypot hyroidism1 (chief complaint)anxie ty1 (chief complaint)back pain1 (chief complaint)low D (chief complaint) Hypothyroidism Generalized Anxiety DisorderUrinar y tract infectionVitam in D deficiency, unspecifiedEnc ounter for oth screening for malignant neoplasm of breastLumbago 0 Jeromy Carpio [address], [place], [place], [address] , [place]. tel:[phone] OFFICE/OUTPA TIENT VISIT, [facility], [address] [place], [address], [place] tel:[phone] [facility] grave disease1 (chief complaint)gluos e1 (chief complaint) Hypothyroidism Hyperglycemia Feb- 0 Jeromy Carpio [address] [facility] [place], [address] , [place]. tel:[phone] OFFICE/OUTPA TIENT VISIT, [facility], [address] [place], [address], [place] tel:[phone] [facility] hyperglycemia1 (chief complaint)gout1 (chief complaint) HyperglycemiaG out 0 Jeromy Somers. [address], [place], [place], [address] , [place]. [phone] PREV VISIT, EST, AGE 40-64 [facility], [address], [place], [place], [address], [place] tel:[phone] [facility] physical (chief complaint) Encntr for general adult medical exam w/o abnormal findings 0 Jeromy Somers. [address], [place], [place], [address] , [place]. tel:[phone] OFFICE/OUTPA TIENT VISIT, EST [facility], [address], [place], [place], [address], [place] [phone] [facility] thyroid (chief complaint)cardi ac murmur (chief complaint)anxie ty1 (chief complaint)skin (chief complaint)weigh t loss1 (chief complaint) Hypothyroidism Cardiac murmur, unspecifiedGen eralized Anxiety DisorderFollic ular cyst of skinOther specified disorder of bone densityAbnorma l weight loss 9 Jeromy Somers. [address], [place], [place], [address] , [place]. [phone] Referring Provider: Efren Arango [facility] [address], [place], [place], [address]. tel:[phone] OFFICE/OUTPA TIENT VISIT, EST [facility], [address], [place], [place], [address], [place] tel:[phone] [facility] thyroid1 (chief complaint)low D (chief complaint)tobac co1 (chief complaint)sleep apnea1 (chief complaint) Hypothyroidism Sleep apneaTobacco useVitamin D deficiency, unspecified 9 Jeromy Somers. [address], [place], [place], [address] , [place]. tel:[phone] Referring Provider: Efren Arango [facility] [address], [place], [place], [address]. tel:[phone] OFFICE/OUTPA TIENT VISIT, EST [facility], [address], [place], [place], [address], [place] tel:[phone] [facility] hand pain1 (chief complaint)anxie ty1 (chief complaint)HTN (chief complaint)foot pain1 (chief complaint) Pain in handPain in footEssential (primary) hypertensionDi sorder of thyroid, unspecifiedCar diac murmur, unspecifiedEnc ounter for oth screening for malignant neoplasm of breast 9 Jeromy Carpio [address], [place], [place], [address] , [place]. [phone] Referring Provider: [address] Ar[address], [place], [place], [address]. tel:[phone] PREV VISIT, [facility], AGE 40-64 [facility], [address], [place], [place], [address], [place] tel:[phone] [facility] PHysical (chief complaint) Essential (primary) hypertensionCa rdiac murmur, unspecifiedSle ep apneaDisorder of thyroid, unspecifiedGen eralized Anxiety DisorderEncoun ter for general adult medical exam w abnormal findings 8 Jeromy Carpio [address], [place], [place], [address] , [place]. [phone] Referring Provider: [address], [place], [place], [address]. tel:[phone] OFFICE/OUTPA TIENT VISIT, EST [facility], [address], [place], [place], [address], [place] tel:[phone] [facility] sleep apnea1 (chief complaint)murmu r1 (chief complaint)HTN (chief complaint)hand pain1 (chief complaint) Essential (primary) hypertensionSl eep apneaNonrheuma tic mitral valve regurgitationP ain in unspecified finger(s)Gener alized Anxiety Disorder 0 8 Jeromy Carpio [address], [place], [place], [address] , [place]. tel:[phone] Referring Provider: Efren Ar[address], [place], [place], [address]. tel:[phone] OFFICE/OUTPA TIENT VISIT, [facility], [address], [place], [place], [address], [place] tel:[phone] [facility] murmur1 (chief complaint)pulmo nary HTN (chief complaint)anxie ty1 (chief complaint)HTN (chief complaint) Primary pulmonary hypertensionNo nrheumatic mitral valve regurgitationC ardiac murmur, unspecifiedEss ential (primary) hypertension 8 Jeromy Somers. [address], [place], [place], [address] , [place]. [phone] Referring Provider: Efren Arango [address], [place], [place], [address]. tel:[phone] OFFICE/OUTPA TIENT VISIT, [facility], [address], [place], [place], [address], [place] [phone] [facility] sick (chief complaint)cardi ac murmur (chief complaint)ear cerumen (chief complaint) Cardiac murmur, unspecifiedImp acted cerumen, left earAcute upper respiratory infection, unspecified 7 Jeromy Carpio [address], [place], [place], [address] , [place]. [phone] Referring Provider: Efren Arango [address], [place], [place], [address]. tel:[phone] OFFICE/OUTPA TIENT VISIT, [facility], [address], [place], [place], [address], [place] tel:[phone] [facility] HTN (chief complaint)anxie ty1 (chief complaint)GERD1 (chief complaint)back pain1 (chief complaint) Essential (primary) hypertensionGE RD without esophagitisGen eralized Anxiety DisorderLumbag o 7 Jeromy Carpio [address], [place], [place], [address] , [place]. tel:[phone] Referring Provider: Efren Arango [address], [place], [place], [address]. tel:[phone] PREV VISIT, EST, AGE 40-64 [facility], [address], [place], [place], [address], [place] tel:[phone] [facility] PHysical (chief complaint) Encounter for general adult medical exam w abnormal findingsGERD without esophagitisEss ential (primary) hypertensionLu mbago 7 Jeromy Somers. [address], [place], [place], [address] , [place]. [phone] Referring Provider: Efren Arango [address], [place], [place], [address]. tel:[phone] OFFICE/OUTPA TIENT VISIT, EST [facility], [address], [place], [place], [address], [place] tel:[phone] [facility] back pain1 (chief complaint)HTN (chief complaint)hoars eness (chief complaint)GERD1 (chief complaint) GERD without esophagitisHoa rsenessEssenti al (primary) hypertensionBa ck pain 7 Jeromy Somers. [address], [place], [place], [address] , [place]. [phone] Referring Provider: Efren Aran[address], [place], [place], [address]. tel:[phone] OFFICE/OUTPA TIENT VISIT, EST [facility], [address], [place], [place], [address], [place] tel:[phone] [facility] throat burning1 (chief complaint) HoarsenessGERD w/ esophagitisPai n in throat 0 6 Jeromy Somers. [address], [place], [place], [address] , [place]. [phone] Referring Provider: Efren Arango [address], [place], [place], [address]. tel:[phone] OFFICE/OUTPA TIENT VISIT, [facility], [address], [place], [place], [address], [place] tel:[phone] [facility] HTN (chief complaint)GERD1 (chief complaint)back pain1 (chief complaint)foot pain1 (chief complaint) Gastro-esophag eal reflux disease without esophagitisEss ential (primary) hypertensionBa ck painPain in unspecified foot 6 Jeromy Somers. [address], [place], [place], [address] , [place]. tel:[phone] Referring Provider: Efren Arango [facility] [address], [place], [place], [address]. tel:[phone] PREV VISIT, EST, AGE 40-64 [facility], [address], [place], [place], [address], [place] tel:[phone] [facility] PHysical (chief complaint) Encounter for general adult medical exam w abnormal findingsEssent ial (primary) hypertensionAb normal wt loss 6 Jeromy Somers. [address], [place], [place], [address] , [place]. [phone] Referring Provider: Efren Arango [address], [place], [place], [address]. tel:[phone] OFFICE/OUTPA TIENT VISIT, [facility], [address], [place], [place], [address], [place] tel:[phone] [facility] cough (chief complaint)cough 1 (chief complaint)Weigh t loss (chief complaint) Acute bronchitis, unspecifiedAte lectasisPerson al history of nicotine dependenceAbno rmal weight loss 6 Jeromy Somers. [address], [place], [place], [address] , [place]. [phone] Referring Provider: [address], [place], [place], [address]. tel:[phone] OFFICE/OUTPA TIENT VISIT, [facility], [address], [place], [place], [address], [place] tel:[phone] [facility] HTN1 (chief complaint)GERD1 (chief complaint)grave (chief complaint)back pain1 (chief complaint)palpi tation1 (chief complaint) Essential (primary) hypertensionGE RD without esophagitisDis order of thyroid, unspecifiedPal pitations 5 Jeromy Somers. [address], [place], [place], [address] , [place]. tel:[phone] Referring Provider: [address], [place], [place], [address]. tel:[phone] PREV VISIT, EST, AGE 40-64 [facility], [address], [place], [place], [address], [place] tel:[phone] [facility] Physical (chief complaint) Routine Medical ExamDietary surveillance and counselingRout ine Medical Exam 5 Jeromy Somers. [address], [place], [place], [address] , [place]. tel:[phone] Referring Provider: Efren Arango [facility] [address], [place], [place], [address]. tel:[phone] OFFICE/OUTPA TIENT VISIT, [facility], [address], [place], [place], [address], [place] tel:[phone] [facility] back pain (chief complaint)hyper thyroidism (chief complaint)HTN (chief complaint)GERD (chief complaint)palpi taton (chief complaint) Dietary surveillance and counselingPalp itationsUnspec ified disorder of thyroidHyperte nsion, UnspecifiedGER D 4 Jeromy Somers. [address], [place], [place], [address] , [place]. tel:[phone] Referring Provider: Efren Arango [address], [place], [place], [address]. tel:[phone] OFFICE/OUTPA TIENT VISIT, [facility], [address], [place], [place], [address], [place] tel:[phone] [facility] hyperthyroidism (chief complaint)heada gianni (chief complaint)bee allergy (chief complaint) Dietary surveillance and counselingUnsp ecified disorder of thyroidPalpita tionsHeadache 4 Jeromy Somers. [address], [place], [place], [address] , [place]. tel:[phone] Referring Provider: Yonis Pinzon, [address], [place], [place], [address]. tel:[phone] OFFICE/OUTPA TIENT VISIT, [facility], [address], [place], [place], [address], [place] tel:[phone] [facility] hyperthyroidism (chief complaint) Hypertension, UnspecifiedUns pecified disorder of thyroidDietary surveillance and counseling 4 Jeromy Somers. [address], [place], [place], [address] , [place]. tel:[phone] Referring Provider: Yonis Pinzon, [address], [place], [place], [address]. tel:[phone] OFFICE/OUTPA TIENT VISIT, [facility], [address], [place], [place], [address], [place] tel:[phone] [facility] grave disease (chief complaint) Goiter, unspecifiedHyp ertension, Unspecified 4 Jeromy Somers. [address], [place], [place], [address] , [place]. tel:[phone] Referring Provider: Yonis Pinzon, [address], [place], [place], [address]. tel:[phone] OFFICE/OUTPA TIENT VISIT, [facility], [address], [place], [place], [address], [place] tel:[phone] [facility] Grave disease (chief complaint)chorn ic pain (chief complaint) Unspecified disorder of thyroidGoiter, unspecifiedCHR ONIC PAIN NECUnspecified vitamin d deficiency 4 Jeromy Somers. [address], [place], [place], [address] , [place]. tel:[phone] Referring Provider: Yonis Pinzon, [address], [place], [place], [address]. tel:[phone] PREV VISIT, NEW, AGE 40-64 [facility], [address], [place], [place], [address], [place] tel:[phone] [facility] Physical (chief complaint) Dietary surveillance and counselingRout ine Medical ExamRoutine Medical Exam 4 Jeromy Somers. [address] [facility] [address], [place], [place], [address] , [place]. tel:[phone] Family History Family Member Type Diagnosis Age At Onset Mother Problem (finding) COPD Sister Problem (finding) Diabetes mellitus Father Problem (finding) Cancer - blood Payers Payer name Insurance type Covered alliance party ID Authorlemuela emanuelmarcy(s) [facility] [id number] Social History Type Description Quantity Date Captured Comments Alcohol Use Details No Caffeine Use Details Unknown Tobacco Use Status Ex-cigarette smoker 025 Smoking Status Former smoker Sex Female Vital Signs Date / Time: Height Weight BMI Pulse Rate Blood Pressure Temperature Respiratory Rate Body Surface Area Head Circumference BMI percentile Pulse Ox Inhaled Ox 9:56 AM 63.00 in 177.40 lbs 31.4 2 kg/m eter (2) 65 /min 120/80 mm[Hg] 97.2 F 16 /min Chief Complaint And Reason For Visit From encounter dated '12/23/2024 09:56'. hip pain1 (chief complaint). Description: Pt c/o persistent left hip pain for several months Pt denies any injury Pt had negative x ray. Pt has not done PT yet .Pt denies any redness or warmth HTN (chief complaint). Description: Pt has HTN Pt takes hctz and her bp is ok. anxiety1 (chief complaint). Description: Pt has chronic anxiety Pt denies any depression Pt takes ativan PRn Pt needs it refilled. Plan Of Treatment Date Type Action Status Goal Influenza vaccine. Due on due Goal Cognitive assessment. Due on due Goal Tdap. Due on due Goal Sigmoidoscopy. Due on due Goal Depression screening. Due on due Goal Td vaccine. Due on due Goal FOBT. Due on due Goal Zoster vaccine. Due on due Goal Pneumococcal vaccine. Due on due Goal Lipid panel. Due on due Goal Td vaccine. Due on due Goal Depression screening. Due on due Goal Sigmoidoscopy. Due on due Goal Tdap. Due on due Goal Pap/HPV testing. Due on due Goal Cognitive assessment. Due on due Goal Influenza vaccine. Due on due Goal FOBT. Due on due Goal Zoster vaccine. Due on due Goal Pneumococcal vaccine. Due on due Goal Lipid panel. Due on 025 due Goal Lipid panel. Due on 024 due Goal Pneumococcal vaccine. Due on due Goal Zoster vaccine. Due on due Goal FOBT. Due on due Goal Influenza vaccine. Due on due Goal Cognitive assessment. Due on due Goal Td vaccine. Due on due Goal Depression screening. Due on due Goal Sigmoidoscopy. Due on due Goal Tdap. Due on due Goal Pap/HPV testing. Due on due Goal Lipid panel. Due on due Goal Zoster vaccine. Due on due Goal FOBT. Due on due Goal Influenza vaccine. Due on due Goal Td vaccine. Due on due Goal Depression screening. Due on due Goal Sigmoidoscopy. Due on due Goal Tdap. Due on due Goal Pap/HPV testing. Due on due Goal Tdap. Due on due Goal Pap/HPV testing. Due on due Goal Sigmoidoscopy. Due on due Goal Lipid panel. Due on 023 due Goal Zoster vaccine. Due on due Goal FOBT. Due on due Goal Influenza vaccine. Due on due Goal Td vaccine. Due on 23 due Goal Depression screening. Due on due Goal Depression screening. Due on due Goal Td vaccine. Due on due Goal Influenza vaccine. Due on due Goal Tdap. Due on due Goal Pap/HPV testing. Due on due Goal Sigmoidoscopy. Due on due Goal Lipid panel. Due on due Goal Zoster vaccine. Due on due Goal FOBT. Due on due Goal Pap/HPV testing. Due on due Goal Tdap. Due on due Goal Influenza vaccine. Due on due Goal FOBT. Due on due Goal Zoster vaccine. Due on due Goal Lipid panel. Due on due Goal Sigmoidoscopy. Due on due Goal Depression screening. Due on due Goal Td vaccine. Due on due Goal Lipid panel. Due on due Goal Zoster vaccine. Due on due Goal FOBT. Due on due Goal Influenza vaccine. Due on due Goal Tdap. Due on due Goal Pap/HPV testing. Due on due Goal Sigmoidoscopy. Due on due Goal Depression screening. Due on due Goal Td vaccine. Due on due Goal Td vaccine. Due on due Goal Depression screening. Due on due Goal Sigmoidoscopy. Due on due Goal Lipid panel. Due on due Goal Zoster vaccine. Due on due Goal FOBT. Due on due Goal Influenza vaccine. Due on due Goal Tdap. Due on due Goal Pap/HPV testing. Due on due Goal Depression screening. Due on due Goal Td vaccine. Due on due Goal Influenza vaccine. Due on due Goal Tdap. Due on due Goal Pap/HPV testing. Due on due Goal Sigmoidoscopy. Due on due Goal Lipid panel. Due on due Goal Zoster vaccine. Due on due Goal FOBT. Due on due Goal Zoster vaccine. Due on due Goal FOBT. Due on due Goal Lipid panel. Due on due Goal Sigmoidoscopy. Due on due Goal Depression screening. Due on due Goal Td vaccine. Due on due Goal Influenza vaccine. Due on due Goal Tdap. Due on due Goal Pap/HPV testing. Due on due Goal Pap/HPV testing. Due on due Goal Tdap. Due on due Goal Influenza vaccine. Due on due Goal Zoster vaccine. Due on due Goal FOBT. Due on due Goal Lipid panel. Due on due Goal Sigmoidoscopy. Due on due Goal Depression screening. Due on due Goal Td vaccine. Due on due Goal Pap/HPV testing. Due on due Goal Tdap. Due on due Goal Influenza vaccine. Due on due Goal Zoster vaccine. Due on due Goal FOBT. Due on due Goal Lipid panel. Due on due Goal Sigmoidoscopy. Due on due Goal Depression screening. Due on due Goal Td vaccine. Due on due Goal Pap/HPV testing. Due on due Goal Tdap. Due on due Goal Influenza vaccine. Due on due Goal Zoster vaccine. Due on due Goal FOBT. Due on due Goal Lipid panel. Due on due Goal Sigmoidoscopy. Due on due Goal Depression screening. Due on due Goal Td vaccine. Due on due Goal Pap/HPV testing. Due on due Goal Tdap. Due on due Goal Influenza vaccine. Due on due Goal Zoster vaccine. Due on due Goal FOBT. Due on due Goal Lipid panel. Due on due Goal Sigmoidoscopy. Due on due Goal Depression screening. Due on due Goal Td vaccine. Due on due Goal Sigmoidoscopy. Due on due Goal Lipid panel. Due on due Goal FOBT. Due on due Goal Zoster vaccine. Due on due Goal Influenza vaccine. Due on due Goal Tdap. Due on due Goal Pap/HPV testing. Due on due Goal Td vaccine. Due on due Goal Depression screening. Due on due Goal Sigmoidoscopy. Due on due Goal Lipid panel. Due on due Goal FOBT. Due on due Goal Zoster vaccine. Due on due Goal Influenza vaccine. Due on due Goal Tdap. Due on due Goal Pap/HPV testing. Due on due Goal Td vaccine. Due on 20 due Goal Depression screening. Due on due Goal Depression screening. Due on due Goal Td vaccine. Due on due Goal Pap/HPV testing. Due on due Goal Tdap. Due on due Goal Influenza vaccine. Due on due Goal Zoster vaccine. Due on due Goal FOBT. Due on due Goal Lipid panel. Due on 020 due Goal Sigmoidoscopy. Due on due Goal Tobacco cessation counseling completed Goal Sigmoidoscopy. Due on due Goal Lipid panel. Due on 019 due Goal FOBT. Due on due Goal Zoster vaccine. Due on due Goal Influenza vaccine. Due on due Goal Tdap. Due on due Goal Pap/HPV testing. Due on due Goal Td vaccine. Due on 19 due Goal Depression screening. Due on due Goal Special diet education compl eted Goal Tobacco cessation counseling completed Goal Pap/HPV testing. Due on due Goal Tdap. Due on due Goal Influenza vaccine. Due on due Goal Zoster vaccine. Due on due Goal FOBT. Due on due Goal Lipid panel. Due on due Goal Sigmoidoscopy. Due on due Goal Depression screening. Due on due Goal Td vaccine. Due on 19 due Goal Tobacco cessation counseling completed Goal Special diet education compl eted Goal Pap/HPV testing. Due on due Goal Tdap. Due on due Goal Influenza vaccine. Due on due Goal Zoster vaccine. Due on due Goal FOBT. Due on due Goal Lipid panel. Due on due Goal Sigmoidoscopy. Due on due Goal Depression screening. Due on due Goal Td vaccine. Due on 19 due Goal Special diet education compl eted Goal Tobacco cessation counseling completed Goal Td vaccine. Due on 18 due Goal Depression screening. Due on due Goal Sigmoidoscopy. Due on due Goal Lipid panel. Due on due Goal FOBT. Due on due Goal Influenza vaccine. Due on Oc due Goal Tdap. Due on due Goal Pap/HPV testing. Due on due Goal Pap/HPV testing. Due on due Goal Tdap. Due on due Goal Influenza vaccine. Due on Ap due Goal FOBT. Due on due Goal Td vaccine. Due on 18 due Goal Depression screening. Due on due Goal Sigmoidoscopy. Due on due Goal Lipid panel. Due on 018 due Goal Special diet education compl eted Goal Sigmoidoscopy. Due on due Goal Depression screening. Due on due Goal Td vaccine. Due on due Goal FOBT. Due on due Goal Influenza vaccine. Due on due Goal Tdap. Due on due Goal Pap/HPV testing. Due on due Goal Depression screening. Due on due Goal Influenza vaccine. Due on due Goal Td vaccine. Due on due Goal Sigmoidoscopy. Due on due Goal Tdap. Due on due Goal FOBT. Due on due Goal Pap/HPV testing. Due on due Goal Depression screening. Due on due Goal FOBT. Due on due Goal Influenza vaccine. Due on due Goal Td vaccine. Due on due Goal Tdap. Due on due Goal Pap/HPV testing. Due on due Goal Sigmoidoscopy. Due on due Goal Td vaccine. Due on 17 due Goal Depression screening. Due on due Goal FOBT. Due on due Goal Influenza vaccine. Due on due Goal Tdap. Due on due Goal Sigmoidoscopy. Due on due Goal Pap/HPV testing. Due on due Goal Depression screening. Due on due Goal Pap/HPV testing. Due on due Goal Tdap. Due on due Goal Sigmoidoscopy. Due on due Goal Td vaccine. Due on 17 due Goal Influenza vaccine. Due on due Goal FOBT. Due on due Goal Tdap. Due on due Goal Depression screening. Due on due Goal FOBT. Due on due Goal Pap/HPV testing. Due on due Goal Sigmoidoscopy. Due on due Goal Influenza vaccine. Due on due Goal Td vaccine. Due on 16 due Goal FOBT. Due on due Goal Influenza vaccine. Due on due Goal Sigmoidoscopy. Due on due Goal Depression screening. Due on due Goal Pap/HPV testing. Due on due Goal Td vaccine. Due on 16 due Goal Tdap. Due on due Goal Tdap. Due on due Goal Depression screening. Due on due Goal Td vaccine. Due on 16 due Goal Pap/HPV testing. Due on due Goal Influenza vaccine. Due on due Goal Sigmoidoscopy. Due on due Goal FOBT. Due on due Goal Tdap. Due on due Goal FOBT. Due on due Goal Depression screening. Due on due Goal Influenza vaccine. Due on Ja due Goal Sigmoidoscopy. Due on due Goal Td vaccine. Due on 16 due Goal Pap/HPV testing. Due on due Goal Depression screening. Due on due Goal FOBT. Due on due Goal Influenza vaccine. Due on due Goal Pap/HPV testing. Due on due Goal Sigmoidoscopy. Due on due Goal Td vaccine. Due on 15 due Goal Tdap. Due on due Goal Tobacco cessation counseling completed Goal Tobacco cessation counseling completed Goal Tobacco cessation counseling completed Goal Tobacco cessation counseling completed Referral Ordered: Physical Therapy (related to Pain in left hip) ordered Referral Ordered: Physical Therapy (related to Encounter for general adult medical examination without abnormal findings) ordered Referral Ordered: HIP XRAY AP/LAT ordered Referral Referred To: Physical Therapy Ordered: Referrals: Physical Therapy. Evaluate and treat ordered Referral Ordered: OPERATIVE UPPER GI ENDOSCOPY ordered Referral Ordered: [facility] -[facility] Service Providers : Real Estate Operations Manager (related to Pain in foot) ordered Referral Referred To: OLIVIA CASTILLO [address] [facility],[address] [place], [place], [phone] Ordered: Referrals: Podiatric Medicine & Surgery Service Providers : Real Estate Operations Manager. OLIVIA CASTILLO. Evaluate and treat ordered Referral Ordered: FINGER XRAY Bilateral ordered Referral Ordered: Donta Desai MD (related to Nonrheumatic mitral valve regurgitation) ordered Referral Ordered: SLEEP STUDY, ATTENDED ordered Referral Referred To: Donta Desai MD [address] [place], [place], [id number] Ordered: Referrals: Donta Desai MD. Evaluate and [...] THYROID ordered Referral Ordered: MAMMOGRAM, SCREENING ordered Appointment Nancy Daugherty BOOKED History Of Present Illness Encounter Date Complaint History Of Prese nt Illness hip pain1 Pt c/o persisten t left hip pain for several months Pt denies any injury Pt had negative x ray. Pt has not done PT yet .Pt denies any redness or warmth HTN Pt has HTN Pt ta kes hctz and her bp is ok. anxiety1 Pt has chronic a nxiety Pt denies any depression Pt takes ativan PRn Pt needs it refilled. physical Pt needs annual physical Pt has [...] or sob or headache .Pt sees cardiology thyroid1 Pt has hypothyro idism. 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 Patient also has a benign flow murmur which she is seen the mixer operator vacuum pan salt and she was cleared. Patient denies any [...] symptmos daily without omeprazole back pain1 P thas chornic l ow back pain and neck pain. pt [...] with food Instructions Date Instruction Additional Infor mation Special diet education Related t o Body [...] Body mass index (BMI) 31.0-31.9, adult Prescribed Diet Educ ation/Lifestyle Education Regarding Diet [...] diet. Relate d to Essential (primary) hypertension Elevate head of bed prior to sle ep Related to GERD without esophagitis Avoid provocative fo ods: citrus, alcohol, coffee, chocolate, mints Related to GERD without esophagitis Eat smaller meals, n o eating three hours prior to bedtime Related to GERD without esophagitis Prescribed Activity [...] surveillance counseling Assessments Type Assessment Date assessment Essential (primary) hypertension assessment Generalized Anxiety Disorder Dec assessment Pain in left hip assessment Encounter for oth screening for malignant neoplasm of breast Mental Status Date Cognitive Assessment Orientation - [place] ed to time, place, person, situation.
--- OUTSIDE RECORDS SUMMARY | 2024-12-26 14:07 | XMS_ITS | Encounter Summary ---
Author Organization [facility] Health Address [address] [facility] [place] [address] Care Team Providers Care Family Consultant Name Role Phone Yonis Pinzon MD Primary Care Provider [phone] Suleiman Mo MD Unavailable [phone] Enrike Acevedo MD Unavailable [phone] Enrike Acevedo MD Unavailable [phone] Encounter Details Date Type Department Care Team (Late st Contact Info) Description 07/07/2022 Telephone [facility] Diabetes and Metabolism [address] [place] [address], [place] [address] Suleiman Mo MD [address] [place] [address] of Endocrinology [place], [place] [id number] Social History Tobacco Use Types Packs/Day Years Used Date Smoking Tobacco: Former Cigarettes Q uit: 11/15/2013 Smokeless Tobacco: Never Alcohol Use Standard Drinks/Week Comments No 0 (1 standard drink = 0.6 oz pur e alcohol) Comments Unknown Sex and Gender Information Value Date Recorded Sex Assigned at Female 06/07/2022 12:30 PM KINDERGARTEN PARAPROFESSIONAL Legal Sex Female 5:49 AM KINDERGARTEN PARAPROFESSIONAL Gender Identity Female 06/07/2022 12:30 PM KINDERGARTEN PARAPROFESSIONAL Sexual Orientation Straight 06/07/2022 12 :30 PM KINDERGARTEN PARAPROFESSIONAL documented as of this encounter Miscellaneous Notes * Telephone Encounter - Cindy Steen - 07/07/2022 2:31 PM CST Current Provider name: Dr. Suleiman Mo Reason for call: Ms. Nancy Daugherty just missed phone call for her TEL APPT. PLEASE call. Patient Call Back number: [phone] ERGARTEN PARAPROFESSIONAL documented in this encounter Plan of Treatment Upcoming Encounters Date Type Department Care Team (Late st Contact Info) Description 02/18/2025 10:00 AM CDT Ancillary Procedure [facility] [address] [facility], [address] [phone] 02/18/2025 11:00 AM CDT Office Visit [facility] - Cardiology [address] [facility], [id number] [place] [phone] Kady Roman DO [address] [facility] [address] [place] [phone] documented as of this encounter Visit Diagnoses Not on filedocumented in this encounter Care Teams Family Consultant Relationship Specialty Start Date End Date Yonis Pinzon MD [address] [place] [phone] PCP - General 09/17/14 Suleiman Mo MD [address] [place] [address] Endocrinology 02/27/24 [place] [address] [facility] [place] [phone] Hospitalist 02/27/24 02/27/24 Enrike Acevedo MD [address] [place], [place] [id number] Hospitalist 02/27/24 documented as of this encounter
--- OUTSIDE RECORDS SUMMARY | 2024-12-26 14:07 | XMS_ITS | Encounter Summary ---
Author Organization [facility] Health Address [address] [facility] [address] Care Team Providers Care Admin Asst Name Role Phone Yonis Pinzon MD Primary Care Provider [phone] Suleiman Mo MD Unavailable [phone] Enrike Acevedo MD Unavailable [phone] Enrike Acevedo MD Unavailable [phone] Encounter Details Date Type Department Care Team (Late st Contact Info) Description 04/26/2021 Telephone [facility] Diabetes and Metabolism [address] [place] [address], [place] [address] Suleiman Mo MD [address] [place] [address] of Endocrinology [place], [place] [id number] Social History Tobacco Use Types Packs/Day Years Used Date Smoking Tobacco: Former Cigarettes Q uit: 11/15/2013 Smokeless Tobacco: Never Alcohol Use Standard Drinks/Week Comments No 0 (1 standard drink = 0.6 oz pur e alcohol) Comments Unknown Sex and Gender Information Value Date Recorded Sex Assigned at Female 06/07/2022 12:30 PM PAPER SUPERVISOR Legal Sex Female 5:49 AM PAPER SUPERVISOR Gender Identity Female 06/07/2022 12:30 PM PAPER SUPERVISOR Sexual Orientation Straight 06/07/2022 12 :30 PM PAPER SUPERVISOR documented as of this encounter Miscellaneous Notes * Telephone Encounter - Antonia Aguilera - 04/26/2021 9:58 AM CST Patient wants to know if she can get blood work done before her next appointment on 05/12/21 telephone visit.. ANG: 03/07/2019 NOV:05/12/21 R SUPERVISOR documented in this encounter Plan of Treatment Upcoming Encounters Date Type Department Care Team (Late st Contact Info) Description 02/18/2025 10:00 AM CDT Ancillary Procedure [facility] [address] [facility], [address] [phone] 02/18/2025 11:00 AM CDT Office Visit [facility] - Cardiology [address] [facility], [id number] [place] [phone] Kady Roman DO [address] [facility] [address] [place] [phone] documented as of this encounter Visit Diagnoses Not on filedocumented in this encounter Care Teams Admin Asst Relationship Specialty Start Date End Date Yonis Pinzon MD [address] [place] [phone] PCP - General 09/17/14 Suleiman Mo MD [address] [place] [address] Endocrinology 02/27/24 [place] [address] [facility] [place] [phone] Hospitalist 02/27/24 02/27/24 Enrike Acevedo MD [address] [place] [address] Hospitalist 02/27/24 documented as of this encounter
--- OUTSIDE RECORDS SUMMARY | 2024-12-26 14:07 | XMS_ITS | Data Portability ---
Author Organization [facility] [place] Address [address] [place] [address] Care Team Providers Care Clinical Staff Rn Name Role Phone VISHNU MAZARIEGOS Primary Care [...] will consider pessary if sx not improved. [email or web address] Not available 05/21/2020 15:18:02 01/11/2022 01/11/2022 will restart estradiol cream nightly for a month, then 3x per week FU WWE 2 mos Not available 01/11/2022 16:38:40 03/20/2022 03/20/2022 healthy female exam/menopause patient declines std testing pap not indicated=- hyst mammogram UTD colonoscopy due around 2024 dexa due 2024 estrace cream refilled Encouraged weight bearing exercise and 1500mg daily of Calcium with Vitamin D FU 1 year or prn [email or web address] Not available 03/21/2022 08:35:45 03/30/2023 03/30/2023 Annual gynecological exam performed. Patient will come back in a year unless there are new symptoms. Not available 03/30/2023 14:19:46 Plan of Treatment Reminders Order Date Submit Date Provider Last Modified By Organization Details Last Modified Time Details Appointments None recorded. Lab urinalysis, dipstick 2022 023 [email or web address] [email or web address] , [address], [address], [place], [address], 3 14:50:59 Referral urogynecolo gist referral 2022 023 [email or web address] David Heredia MD, [address], [address], [place], [address], 3 18:09:50 Procedures None recorded. Surgeries None recorded. Imaging MAMMO, screening, bilateral 2022 023 EVAN Not available 4 05:01:34 Medication Orders estradiol 0.01% (0.1 mg/gram) vaginal cream 2022 023 BISON [facility] #[id number], [address] [place], [place], [id number], 3 14:51:06 estradiol 0.01% (0.1 mg/gram) vaginal cream 2021 022 BISON [facility] #56826, [address] [place], [place], [id number], 2 14:50:23 estradiol 0.01% (0.1 mg/gram) vaginal cream 2021 022 [id number], [address] [place], [place], [id number], 2 16:39:11 Estrace 0.01% (0.1 mg/gram) vaginal cream 2019 020 [facility] #[id number], [address] [place], [place], [id number], 2 14:46:42 Patient TargetsNo targets recorded. Patient InstructionsNo instructions recorded. Reason for Referral Urogynecologist Referral for Prolapse of female genital organs Referring Physician: Kinjal Verdugo, HIM TECH, Encounter Date: 03/30/2023 Results Created Date Observation Date Name Description Value Unit Range Abnormal Flag Note LastModifiedBy Organization Detail LastModifiedTime 03/30/2003/30/2023 URINA LYSIS , WITH MICRO SCOPI C, REFLE X CULTU RE color, urine Light Yellow Not Available [facility] (Lab) [address], [place], [address], 03/31/2023 03:30:32 03/30/2003/30/2023 URINA LYSIS , WITH MICRO SCOPI C, REFLE X CULTU RE clarity, urine Clear Not Available [facility] (Lab) [address], [place], [address], 03/31/2023 03:30:32 03/30/2003/30/2023 URINA LYSIS , WITH MICRO SCOPI C, REFLE X CULTU RE specific gravity, urine 1.006 . 1.005- 1.035 Not Available [facility] (Lab) [address], [place], [address], 03/31/2023 03:30:32 03/30/2003/30/2023 URINA LYSIS , WITH MICRO SCOPI C, REFLE X CULTU RE pH, urine 7.0 . 5.0-7. 0 Not Available [facility] (Lab) [address] [place], [address], 03/31/2023 03:30:32 03/30/2003/30/2023 URINA LYSIS , WITH MICRO SCOPI C, REFLE X CULTU RE protein, UA Negati ve mg/dL negati ve, 10-20 Not Available [facility] (Lab) [address], [place], [address], 03/31/2023 03:30:32 03/30/20 23 03/30/2023 URINA LYSIS , WITH MICRO SCOPI C, REFLE X CULTU RE glucose, urine Normal mg/dL negati ve Not Available [facility] (Lab) [address] [facility], [place], [address], 03/31/2023 03:30:32 03/30/2003/30/2023 URINA LYSIS , WITH MICRO SCOPI C, REFLE X CULTU RE ketones, urine Negati ve mg/dL negati ve Not Available [facility] (Lab) [address] [facility], [place], [address], 03/31/2023 03:30:32 03/30/2003/30/2023 URINA LYSIS , WITH MICRO SCOPI C, REFLE X CULTU RE bilirubin, urine Negati ve negati ve Not Available [facility] (Lab) [address] [facility], [place], [address], 03/31/2023 03:30:32 03/30/20 23 03/30/2023 URINA LYSIS , WITH MICRO SCOPI C, REFLE X CULTU RE blood, urine Negati ve negati ve Not Available [facility] (Lab) [address] [facility], [place], [address], 03/31/2023 03:30:32 03/30/20 23 03/30/2023 URINA LYSIS , WITH MICRO SCOPI C, REFLE X CULTU RE nitrite, urine Negati ve negati ve Not Available [facility] (Lab) [address] [facility], [place], [address], 03/31/2023 03:30:32 03/30/20 23 03/30/2023 URINA LYSIS , WITH MICRO SCOPI C, REFLE X CULTU RE leukocyte esterase, urine Negati ve shay/u L negati ve Not Available [facility] (Lab) [address] [facility], [place], [address], 03/31/2023 03:30:32 03/30/20 23 03/30/2023 URINA LYSIS , WITH MICRO SCOPI C, REFLE X CULTU RE urobilinogen , urine Normal mg/dL normal , <2.0 Not Available [facility] (Lab) [address], [place], [address], 03/31/2023 03:30:32 03/30/2003/30/2023 URINA LYSIS , WITH MICRO SCOPI C, REFLE X CULTU RE RBC, urine 0-2 /hpf none, 0-2 Not Available [facility] (Lab) [address] [facility], [place], [address], 03/31/2023 03:30:32 03/30/2003/30/2023 URINA LYSIS , WITH MICRO SCOPI C, REFLE X CULTU RE WBC, urine 0-5 /hpf none, 0-5 Not Available [facility] (Lab) [address] [facility], [place], [address], 03/31/2023 03:30:32 03/30/2003/30/2023 URINA LYSIS , WITH MICRO SCOPI C, REFLE X CULTU RE squamous epithelial cells, urine Few /hpf none abnormal Not Available [facility] (Lab) [address] [facility], [place], [address], 03/31/2023 03:30:32 03/30/2003/30/2023 URINA LYSIS , WITH MICRO SCOPI C, REFLE X CULTU RE bacteria, urine None /hpf none Not Available [facility] (Lab) [address] [facility], [place], [address], 03/31/2023 03:30:32 03/30/2003/30/2023 URINA LYSIS , WITH MICRO SCOPI C, REFLE X CULTU RE hyaline cast, urine None /lpf none, 0-2 Urine Cultu re not perfo rmed per refle x [place] col. Not Available [facility] (Lab) [address] [facility], [place], [address], 03/31/2023 03:30:32 03/30/2003/30/2023 urina lysis , dipst ick pH 8 Not Available [address], [place], [address], 03/30/2023 14:48:24 03/30/20 23 03/30/2023 urina lysis , dipst ick Specific [place] 1.000 Not Available [facility] [address], [place], [address], 03/30/2023 14:48:24 Result Notes None recorded. Problems Name Problem SNOMED Code Status Onset Date Resolution Date Notes Provider Name and Address Organization Details Recorded Time Atrophic vaginitis 38636726 Active 022 Christiane De Paz MD [address], [place], [address], [facility] 16:35:36 Problem Notes None recorded. Procedures Surgical History Date Name Laterality Status Provider Name and Address Organization Details Recorded Time 022 Date of Last Mammogram completed Margie Guerra [facility] 03/30/2023 14:23:59 020 Most Recent Bone Density completed [facility] 03/20/2022 14:21:12 015 Date of Last Colonoscopy completed [facility] 03/20/2022 14:21:03 014 surgical avulsion completed [facility] 05/21/2020 14:02:57 990 cholecystectomy completed [facility] 05/21/2020 14:01:18 989 total abdominal hysterectomy completed Christiane De Paz MD [address], [place], [address], [facility] 05/21/2020 14:43:57 987 section completed [facility] 05/21/2020 14:01:58 Imaging Results [...] Available Vitals Date Recorded Body weight Systolic And Diastolic Provider Name and Address Organization Details Last Updated DateTime 01/11/2022 58494.37 g 141/83 mm[Hg] [facility] 01/11/2022 14:46:27 Date Recorded Body height Body mass index (BMI) Body weight Systolic And Diastolic Provider Name and Address Organization Details Last Updated DateTime 03/20/2022 160.02 cm 32.9 kg/m2 60081.18 g 118/76 mm[Hg] [facility] 03/20/2022 14:20:49 Date Recorded Body height Body mass index (BMI) Body weight Systolic And Diastolic Provider Name and Address Organization Details Last Updated DateTime 03/30/2023 160.02 cm 31.2 kg/m2 71769.26 g 114/74 mm[Hg] Margie Guerra [facility] 03/30/2023 14:20:09 Date Recorded Body height Body mass index (BMI) Body weight Systolic And Diastolic Provider Name and Address Organization Details Last Updated DateTime 05/21/2020 160.02 cm 31.7 kg/m2 61215.03 g 155/78 mm[Hg] Morelia Tadeo [facility] 05/21/2020 14:14:27 Social History Question Answer Notes LastModified by Organizat ion Details LastModified Time Tobacco Smoking Status Never Smoker [facility] [employer] null, [facility] 05/21/2020 14:03:34 In The 14 [...] (Food, seasonal, environmental ) N Other N Drug/Latex Allergies/Reactions N Blood Transfusion N Breast Cancer N Dermatologic Disorders N Lung Disease N Defects or Inherited Disease N Breast Problem N Gestational Diabetes N Hematologic disorders N Anesthesia Complications N History of STI N Deep Vein Thrombosis N Polycystic ovary syndrome N Anxiety Disorder Y Autoimmune disease N Arthritis N Polyps N Infertility N Acid Reflux (GERD) N History of abnormal pap N Cancer N Varicosities N Stroke N Neurologic/Epilepsy N Endometriosis N High Cholesterol N Fibromyalgia N Headaches N Kidney Disease N Heart Problems N Thyroid Problems Y Kidney or Bladder Problems N GI Problems Y Eating Disorder N Anemia [...] SNOMED-CT Code Diagnosis ICD10 Code Diagnosis Note 17750 Christiane De Paz MD [place] [address],[place] [address] 05/21/2020 13:37:49 05/21/2020 15:31:40 Atrophic vaginitis 39304969 N95.2 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 Midline cystocele 864758 003 N81.11 History of hysterectomy 382982738 Z90.711 RANDY 1988, [place] [id number] Christiane De Paz MD [place] [address],[place] [address] 01/11/2022 14:23:51 01/11/2022 16:40:06 Atrophic vaginitis 16360518 N95.2 611803 Christiane De Paz MD [place] [address],[place] [address] 03/20/2022 14:05:00 03/21/2022 15:20:41 Gynecologic examination 95489234 Z01.419 Atrophic vaginitis 97188 000 N95.2 231951 Kinjal Verdugo [facility] [address],[place] [address] 03/30/2023 14:05:41 04/03/2023 18:09:50 Gynecologic examination 14368740 Z01.419 Take Calcium with Vitamin D 12-1500mg daily. Do monthly self breast exams. It is advised to get annual flu shot in the fall and she could obtain at [facility] or [facility] clinic. If you haven't received the Tdap [...] PCPMammo orderedThy roid being updated Atrophic vaginitis 13221 000 N95.2 Screening mammography 24 158219 Z12.31 Dysuria 60774278 R30.0 Prolapse o f female genital organs 78975951 N81.9 Health Concerns Section Related Observation LastModified by Organization Detai ls LastModified Time None Recorded Concern Status LastModified by Organization Details LastModified Time None Recorded Advance Directives Directive None Recorded Payers Insurance Date Sequence Insurance Name Policy Number Policy Armenta Covered Member ID Armenta Member ID Guarantor Name 03/29/2023 1 [facility] PRIOR TO 06/04/20 - DUAL ELIGIBLE (MEDICARE REPLACEMENT/AD VANTAGE - HMO) Nancy Daugherty [id number] Nancy Daugherty 05/19/2023 1 [facility] - DOS ON OR AFTER 20 (MEDICAID REPLACEMENT - HMO) Nancy Daugherty [id number] Nancy Daugherty Notes Date Note Type Note Provider Name and Address Organization Details Recorded Time 0 text/html Pt SHAUN is a 59yo here [...] Christiane De Paz MD [address], [place], [address], [facility] 05/21/2020 16:10:33 2 text/html Here for follow up urethral atrophy and symptomatic vaginitis again. ran out of estrace cream. having sx of UTI again off and on, burning, uncomfortable, swollen feeling, especially at urethra, seen by PCP for UTI but was not UTI. no bleeding. Christiane De Paz MD [address], [place], [address], [facility] 01/11/2022 16:39:20 2 text/html Patient is a 61yo who presents for an annual exam. Restarted vaginal estrace in Jan and doing much better, needs refill. Hat RANDY and USO in . last pap-na mammo-2021 colonoscopy-around 2014, 10 years dexa-2019, nl menopause-y sexually active-y seatbelts-y exercise-y depression-denies domestic violence-denies tobacco-n concerns- Christiane De Paz MD [address], [place], [address], [facility] 03/21/2022 08:36:20 3 text/html Annual [employer] Post-MenopausalReported by PatientGenitourinary symptomsFor menopausal symptoms, patient reportsno menopausal symptomsandnormal vaginal lubrication. For vaginal bleeding, patient reportshistory of menopause having occurredandno history of post menopausal bleeding. For urinary symptoms, patient reportsno hematuria,no incontinence,no nocturia, andno urinary frequency. For vulva, patient reportsno genital lesionandno vulvar atrophy. For vagina, patient reportsnormal vaginal dischargeandno vaginal atrophy.Breast symptomsFor breast, patient reportsno breast lump,no nipple discharge, andno breast pain.Psychological symptomsFor sexual complaints, patient reportsno sexual complaints. For psychological symptoms, patient reportsno depressionandno anxiety.Preventative measuresFor preventive measures, patient reportsencourage regular mammograms starting age 40,encourage self breast examination,encourage regular exercise,encourage no tobacco use,needs to schedule mammogram, andhistory of recent colonoscopy. Kinjal Verdugo, [facility]- [address], [place], [address], [facility] 04/03/2023 11:33:39 OBGyn Episode Ob Episode Information Episode Created Date Number of Fetuses Patient Bloodtype Patient rh Status Prepregnancy Weight lbs Domestic Partner Domestic Partner Phone Father Name Cook [employer] Foreign Food Status 05/21/20 20 1 CLOSED Fetus Data [...] Domestic Partner Domestic Partner Phone Father Name [employer] Foreign Food Status 05/21/20 20 1 CLOSED Fetus Data [...] Domestic Partner Domestic Partner Phone Father Name [employer] Foreign Food Status 05/21/20 20 1 CLOSED Fetus Data [...]
--- OUTSIDE RECORDS SUMMARY | 2024-12-26 14:08 | XMS_ITS | Clinical Summary ---
Author Organization [facility] Address [address] [place] [address] Care Team Providers Care Corpsman Name Role Phone Yonis Pinzon MD Primary Care Provider [phone] Suleiman Mo MD Unavailable [phone] Enrike Acevedo MD Unavailable [phone] Source Comments [facility],non-owned Affiliates and Associated Physician Practices is amultiple site organization consisting of ambulatory clinics and hospital sitesin [place], [place], [place] and [place]. This disclosure is being madepursuant to the Care Everywhere program and may not contain all information available regarding this patient. Last updated 18.[facility] Allergies Active Allergy Reactions Criticality Noted Date Comments Wasp Venom Protein Unknown 06/09/2022 Wasps [Other] Shortness of Breath,Swelling High 03/04/2015 Received name: Wasps Medications * Be aware that medications may not be up to date on this document. Alwaysverify current medications with the patient. Magnesium 400 MG Take 400 mg by mouth. 11/17/19 17 Active cyclobenzaprine (FLEXERIL) 10 MG tablet Take 1 (one) tablet by mouth Active MULTIPLE VITAMINS-MINERALS PO Active omeprazole (PRILOSEC OTC) capsule Take 2 (two) capsules by mouth daily before breakfast Active LORazepam (ATIVAN) 0.5 MG tabletIndications: Gastroesophageal reflux disease without esophagitis,Graves disease,Essential hypertension,Flush ing Take 1 (one) tablet by mouth as needed 0 09/26/19 18 Active Calcium Carbonate-Vit D-Min (CALCIUM 1200 PO) Take 2 tablets by mouth once daily Active estradiol (Estrace) 0.1 MG/GM vaginal cream APPLY GRAPE SIZED AMOUNT TO INTROITUS/URE THRAL MEATUS 3 TIMES PER WEEK 03/20/20 22 Active levothyroxine (Synthroid) 88 MCG tablet Take 1 (one) tablet by mouth daily before breakfast Active atenolol (Tenormin) 25 MG tabletIndications: Essential hypertension Take 1.5 (one and one-half) tablets by mouth once daily 135 tablet 3 05/15/20 24 Active losartan (Cozaar) 100 MG tabletIndications: Gastroesophageal reflux disease without esophagitis,Flushi ng,Gastro-esophage al reflux disease without esophagitis,Essent ial hypertension,Grave s disease,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 TAKE 1 TABLET BY MOUTH IN THE MORNING AND HALF A TABLET IN THE EVENING 150 tablet 3 12/19/19 25 Active losartan (Cozaar) 100 MG tabletIndications: Gastroesophageal reflux disease without esophagitis,Flushi ng,Gastro-esophage al reflux disease without esophagitis,Essent ial hypertension,Grave s disease,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 TAKE 1 TABLET BY MOUTH IN THE MORNING AND HALF A TABLET IN THE EVENING 150 tablet 3 11/28/19 24 025 Discontin ued(Reord er) Active Problems Problem Noted Date Diagnosed Date [...] 11/18/2014 Graves disease 11/18/2014 Hypovitaminosis D 11/18/2014 Encounters Date Type Department Care Team Description 12/18/2024 Refill [facility] - Cardiology [address], [facility] [address] [place] [address] Ana Michel, LAUNDRY FOLDER REFILL from Last 3 Months Immunizations Immunization Administration Dates Next Due INFLUENZA VACCINE 03/04/2018 [...] Sex Assigned at Female 06/07/2022 12:30 PM RICE DRIER Legal Sex Female 5:49 AM RICE DRIER Gender Identity Female 06/07/2022 12:30 PM RICE DRIER Sexual Orientation Straight 06/07/2022 12 :30 PM RICE DRIER Last Filed Vital Signs Vital Sign Reading Time Taken Comments Blood Pressure 119/70 02/27/2024 11:38 AM CDT Pulse 56 02/27/2024 11:38 AM CDT Temperature 36.8 C (98.2 F) 06/09/2022 1:36 PM RICE DRIER Respiratory Rate 12 11/16/2016 12:42 PM CDT Oxygen Saturation 97% 02/27/2024 11:38 AM CDT Inhaled Oxygen Concentration - - Weight 76.2 kg (168 lb) 02/27/2024 11:38 AM CDT Height 160 cm (5' 3) 02/27/2024 11:38 AM CDT Body Mass Index 29.76 02/27/2024 11:38 AM CDT Plan of Treatment Upcoming Encounters Date Type Department Care Team (Late st Contact Info) Description 02/18/2025 10:00 AM CDT Ancillary Procedure [facility] - Echosonography [address] [place] [address] 02/18/2025 11:00 AM CDT Office Visit [facility] - Cardiology [address] [place] [address] Kady Roman DO [address] [place] [address] Health Maintenance Due Date Last Done Comments BONE DENSITY TESTING 1960 COLOGUARD (AGES 45-75) - COLON CA SCREENING 1958 COLON MONITORING 1958 COLONOSCOPY - COLON CA SCREENING 1958 CT COLONOGRAPHY - COLON CA SCREENING 1960 Colorectal Cancer Screening 1958 FIT - COLON CA SCREENING 1958 FLEX SIG - COLON CA SCREENING 1958 MAMMOGRAM 1960 HEPATITIS C SCREENING 10/02/1976 DTAP/TDAP/TD VACCINES (1 - Tdap) 1977 PNEUMOCOCCAL VACCINE 50+ (1 of 1 - PCV) 2008 ZOSTER VACCINE (1 of 2) 2008 LIPID TESTING 10/29/2020 10/30/2015 COVID-19 VACCINE ( - season) 2024 SCREENING FOR DIABETES 02/27/2024 8, 11/13/2017, 08/11/2017, Additional history exists DEPRESSION SCREENING 06/04/2024 MEDICARE AWV CALENDAR YEAR 2024 INFLUENZA VACCINE (#1) 2025 03/04/2018 Respiratory Syncytial Virus (RSV) Vaccine Pt: or [...] approximately 13% higher for people identified as -Chadian. eGFR by MDRD 89 > OR = [...] 10.4 mg/dL [facility] Comment: Test Performed at: [employer] [address] [place] [address] HARDIK WALKER DO,MPH 11/13/2017 8:10 AM CDT 11/13/2017 8:11 AM CDT Sumanth Duong MD LAB - CHEMISTRY ORDERABLES Fin al Result Performing Organization Address [facility] Co de Phone Number [facility] [address] [place] [address] * LIPID PROFILE W LDL/HDL RATIO (10/30/2015 9:06 AM CDT) Cholesterol Total 168 125 - 200 mg/dL [facility] ([facility]) Comment: Test Performed at: [employer] [facility] [address] [place] [address] HARDIK WALKER DO,MPH HDL 65 > OR = 46 mg/dL [facility] ([facility]) Triglycerides 72 <150 mg/dL [facility] ([facility]) LDL Calculated 89 <130 mg/dL (calc) [facility] ([facility]) Comment: Desirable range <100 mg/dL for patients with CHD or diabetes and <70 mg/dL for diabetic patients with known heart disease. Chol/HDL Ratio 2.6 < OR = 5.0 (calc) [facility] ([facility]) LDl/HDL Ratio 1.4 (calc) [facility] ([facility]) Comment: Below average Risk: <2.34 Average Risk: 2.35-4.12 Moderate Risk: 4.13-5.56 High Risk: >5.57 Non HDL Cholesterol 103 mg/dL (calc) [facility] ([facility]) Comment: Target for non-HDL cholesterol is 30 mg/dL higher than LDL cholesterol target. 10/30/2015 9:06 AM CDT 10/30/2015 9:07 AM CDT Yonis Pinzon MD LAB - CHEMISTRY ORDERABLES Final Result Performing Organization Address [facility] Co de Phone Number [facility] (U) [phone] from Last 3 Months or Most Recently Relevant to Health Maintenance Insurance [employer] MEDICARE ADV Care Teams Corpsman Relationship Specialty Start Date End Date Yonis Pinzon MD [address] [place] [address] PCP - General 09/17/14 Suleiman Mo MD [address] [place] [address] Endocrinology 02/27/24 Enrike Acevedo MD [address] [place], [place] [id number] Hospitalist 02/27/24
== END 2024-12-26 14:01 | disposition home or self-care (01) ==
LOC: ANHIMG 14:03
PROVIDERS: PCP Emergency Medicine; Visit Provider Emergency Medicine
DX: Z12.31 Encounter for screening mammogram for malignant neoplasm of breast (principal)
CPT/HCPCS: 77063; 77067

== ENCOUNTER 2025-03-27 10:06 | Emergency (ER) | payer MEDICARE, MEDICAID, SELFPAY ==
[2025-03-27 10:20] VITALS: BP 129/57; PULSE 84; RESP 16; TEMP 36.4; O2SAT 100
--- NOTE | 2025-03-27 12:01 | ED.GENADULT ---
HPI - General Adult General Chief complaint: Upper Respiratory Infection Stated complaint: SINUS/COUGH Source: patient Mode of arrival: ambulatory Limitations: no limitations History of Present Illness HPI narrative: Patient presents for evaluation of sick symptoms for last 2 days. She initially had a sore throat but that has improved. She now has sinus congestion, mucopurulent nasal discharge, a cough and generalized body aches. She had some diarrhea but that has improved. She denies any vomiting or SOB. She took home COVID and flu tests, both of which were negative. She does not smoke. She took [id number] cough and cold medicine which seemed to help. Related Data Home Medications ?Medication ?Instructions ?Recorded ?Confirmed ?Last Taken ?Type atenolol 25 mg tablet 25 mg PO DAILY 07/25/19 03/27/25 09/11/22 History cyclobenzaprine 10 mg tablet 10 mg PO TID PRN Pain 07/25/19 03/27/25 09/11/22 History lorazepam 0.5 mg tablet 0.5 mg PO BID PRN Anxiety 07/25/19 03/27/25 09/11/22 History losartan 100 mg tablet 150 mg PO BID 07/25/19 03/27/25 09/11/22 History levothyroxine 75 mcg tablet 75 mcg PO DAILY 03/29/22 03/27/25 09/11/22 History ergocalciferol (vitamin D2) 1,250 1,250 mcg PO DIRECTED 06/11/22 03/27/25 09/11/22 History mcg (50,000 unit) capsule hydrochlorothiazide 25 mg tablet 25 mg PO DAILY 06/11/22 03/27/25 09/11/22 History calcium carbonate 600 mg PO BID 10/08/24 03/27/25 Unknown History magnesium 500 mg tablet 100 mg PO QDAY 10/08/24 03/27/25 Unknown History Hrey-Fhwn-Akbs(vit A,C-biotin) 03/27/25 Unknown History biotin 03/27/25 Unknown History calcium 03/27/25 Unknown History magnesium 03/27/25 Unknown History multivitamin 03/27/25 Unknown History Allergies Allergy/AdvReac Type Severity Reaction Status Date / Time venom-wasp Allergy Swelling Verified 03/27/25 10:27 of Lip/Tongue/Throat codeine AdvReac Unknown NAUSEA Verified 03/27/25 10:27 Review of Systems Review of Systems: CONSTITUTIONAL: Denies fever, chills, or sweats. EYES: Denies visual changes, redness, or discharge. ENT: Reports recent sore throat, none currently. Reports sinus congestion and mucopurulent nasal discharge CARDIOVASCULAR: Denies chest pain, palpitations, or edema. RESPIRATORY: reports cough. Denies shortness of breath. GASTROINTESTINAL: Reports recent diarrhea, which has resolved.Denies abdominal pain, nausea, or vomiting GENITOURINARY: Denies dysuria or hematuria. SKIN: Denies rash or itching. MUSCULOSKELETAL: Reports generalized body aches NEUROLOGIC: Denies headache, numbness, dizziness, or weakness. PSYCHIATRIC: Denies anxiety or depression. [facility] Past Medical History Medical History GERD (gastroesophageal reflux disease) Anxiety Finger fracture, right Surgery to left index finger Thyroid disease Gout Arthritis Hypertension Surgical History Surgical History History of eye surgery 07/18/1999-retinal tear left eye History of cholecystectomy History of hysterectomy Family History Family History Father Cancer Mother Lung disease Social History Social History Smoking status: Former smoker Tobacco type: cigarettes Second hand tobacco smoke exposure: No Smoking end date: 06/04/11 Alcohol intake: never Alcohol use details: Occasional Substance use: never Substance use type: does not use Living arrangements: with family Occupation/Education: occupation Gender identity (if verbalized by the patient): Female Spiritual care concerns: No Exam Narrative: GENERAL: Well-appearing, well-nourished, and in no acute distress. HEAD: Normocephalic, atraumatic. EYES: PERRLA and EOMI. ENT: Oropharynx without tonsillar hypertrophy exudate or other lesions. Bilateral TMs pearly amaro nonbulging NECK: Supple. No adenopathy or masses. No carotid bruits or JVD CHEST: Clear to auscultation. No respiratory distress. No wheezes rales or rhonchi HEART: Regular rate and rhythm. No murmur heard. Normal peripheral pulses. ABDOMEN: Soft, nontender, nondistended, normal active bowel sounds. EXTREMITIES: Normal range of motion. No edema. SKIN: Warm, dry, no rash. NEURO: No focal deficits. Alert and oriented x3. PSYCH: Normal mood and affect. Course Course Emergency Course: this is a 64-year-old female who presented for evaluation of sick symptoms. She meets criteria for bacterial sinusitis based upon mucopurulent nature for discharge. I offered to check strep test and CXR. She declined. I think this is reasonable as she does not have any adventitious lung sounds will discharge with Augmentin. Follow-up with primary provider. Go to the ER for worsening symptoms. Patient in agreement with plan of care. Level of Care: Express Care Visit Vital Signs Vital signs: Vital Signs Temperature 36.4 C 03/27/25 10:20 Pulse Rate 84 03/27/25 10:20 Respiratory Rate 16 03/27/25 10:20 Blood Pressure 129/57 L 03/27/25 10:20 Pulse Oximetry 100 03/27/25 10:20 Temperature 36.4 C 03/27/25 10:20 Pulse Rate 84 03/27/25 10:20 Respiratory Rate 16 03/27/25 10:20 Blood Pressure 129/57 L 03/27/25 10:20 Pulse Oximetry 100 03/27/25 10:20 Medical Decision Making Vital Signs Vital Signs: Vital Signs Temperature 36.4 C 03/27/25 10:20 Pulse Rate 84 03/27/25 10:20 Respiratory Rate 16 03/27/25 10:20 Blood Pressure 129/57 L 03/27/25 10:20 Pulse Oximetry 100 03/27/25 10:20 Temperature 36.4 C 03/27/25 10:20 Pulse Rate 84 03/27/25 10:20 Respiratory Rate 16 03/27/25 10:20 Blood Pressure 129/57 L 03/27/25 10:20 Pulse Oximetry 100 03/27/25 10:20 Discharge Plan Discharge Clinical Impression: Sinusitis Patient Disposition: Home Condition: Stable Instructions: Antibiotic Form, Sinusitis (ED) Patient Language: Hebrew Prescriptions: New amoxicillin-pot clavulanate 875-125 mg tablet 1 tablet PO Q12H Qty: 20 0RF No Action atenolol 25 mg Tablet 25 mg PO DAILY losartan 100 mg Tablet 150 mg PO BID Rx Instructions: takes only 1/2 tablet at night dose cyclobenzaprine 10 mg Tablet 10 mg PO TID PRN (Reason: Pain) lorazepam 0.5 mg Tablet 0.5 mg PO BID PRN (Reason: Anxiety) calcium magnesium Osch-Tlmh-Vmsl(vit A,C-biotin) biotin multivitamin hydrochlorothiazide 25 mg tablet 25 mg PO DAILY ergocalciferol (vitamin D2) 1,250 mcg (50,000 unit) capsule 1,250 mcg PO DIRECTED calcium carbonate 600 mg calcium (1,500 mg) tablet 600 mg PO BID magnesium 500 mg tablet 100 mg PO QDAY levothyroxine 75 mcg Tablet 75 mcg PO DAILY omeprazole 40 mg capsule,delayed release(DR/EC) See Rx Instructions .ROUTE .COMPLEX Qty: 30 3RF Dose Instruction: TAKE 1 CAPSULE BY MOUTH DAILY Rx Instructions: TAKE 1 CAPSULE BY MOUTH DAILY Follow-up/Referrals: Yonis Pinzon MD [Primary Care Provider, Family Practice] Time of Disposition: 12:00
== END 2025-03-27 12:02 | disposition home or self-care (01) ==
PROVIDERS: Emergency Provider Nurse Practitioner; PCP Emergency Medicine
DX: J32.9 Chronic sinusitis, unspecified (principal); I10 Essential (primary) hypertension; K21.9 Gastro-esophageal reflux disease without esophagitis; M19.90 Unspecified osteoarthritis, unspecified site; M10.9 Gout, unspecified; E07.9 Disorder of thyroid, unspecified; F41.9 Anxiety disorder, unspecified; Z87.891 Personal history of nicotine dependence
CPT/HCPCS: 99213; G0463